=== PATIENT | female | born 1995 | race Caucasian/White ===

== ENCOUNTER → 2016-09-27 | Outpatient (REF) | payer OTHER ==
[~2016-09-27] MED LIST: ALBU17IN INH; CIPR500T89 PO; FLAG500T PO; NO HOME MEDS; PERCOCET PO; TYLE325T5 PO
== END ==
LOC: M SFHCWAGY 13:50
PROVIDERS: ATTEND Family Medicine
DX: Z11.3 Encounter for screening for infections with a predominantly sexual mode of transmission (principal); Z12.4 Encounter for screening for malignant neoplasm of cervix

== ENCOUNTER → 2016-12-06 | Outpatient (REF) | payer OTHER ==
[2016-12-06 18:52] LABS: BASO % 0.3 % (0.0-1.0); EOS # 0.1 K/mm3 (0.0-0.50); EOS % 0.9 % (0.0-3.0); LARGE UNSTAINED CELL # 0.1 K/mm3 (0.0-0.4); LARGE UNSTAINED CELL % 0.9 % (0.0-4.0); LYMPH # 2.2 K/mm3 (1.5-6.5); LYMPH % 18.7 % (24.0-44.0); MEAN CORPUSCULAR HEMOGLOBIN 29.4 pg (27.0-33.0); MEAN CORPUSCULAR HGB CONC 33.1 g/dl (32.0-36.5); MEAN CORPUSCULAR VOLUME 88.9 fl (80.0-96.0); MONO # 0.6 K/mm3 (0.0-0.8); MONO % 5.6 % (0.0-5.0); NEUTROPHILS # 8.3 K/mm3 (1.8-7.7); NEUTROPHILS % 73.5 % (36.0-66.0); PLATELET COUNT, AUTOMATED 347 k/mm3 (150-450); RED CELL DISTRIBUTION WIDTH 13.6 % (11.5-14.5); WHITE BLOOD COUNT 11.3 K/mm3 (4.0-10.0)
[2016-12-06 19:16] LABS: ALBUMIN 4.1 GM/DL (3.2-5.2); ALBUMIN/GLOBULIN RATIO 1.17 (1.00-1.93); ALKALINE PHOSPHATASE 79 U/L (45-117); ALT/SGPT 60 U/L (12-78); ANION GAP 6 MEQ/L (8-16); AST/SGOT 25 U/L (15-37); BILIRUBIN,TOTAL 0.4 MG/DL (0.2-1.0); BLOOD UREA NITROGEN 11 MG/DL (7-18); CALCIUM LEVEL 9.2 MG/DL (8.5-10.1); CARBON DIOXIDE LEVEL 29 MEQ/L (21-32); CHLORIDE LEVEL 106 MEQ/L (98-107); CREATININE FOR GFR 0.92 MG/DL (0.55-1.02); GLOMERULAR FILTRATION RATE > 60.0 (>60); GLUCOSE, FASTING 94 MG/DL (70-105); POTASSIUM SERUM 4.1 MEQ/L (3.5-5.1); SODIUM LEVEL 141 MEQ/L (136-145); TOTAL PROTEIN 7.6 GM/DL (6.4-8.2)
[2016-12-09 11:06] LABS: FOLATE 4.9 NG/ML; VITAMIN B12 LEVEL 429 PG/ML
== END ==
LOC: M SFHCADAM 14:03
PROVIDERS: ATTEND Physician Assistant Medical
DX: R20.0 Anesthesia of skin (principal)

== ENCOUNTER → 2017-02-19 | Outpatient (REF) | payer OTHER, MEDICAID ==
[~2017-02-19] MED LIST changes: +CIPR-249 PO; -CIPR500T89 PO
[2017-02-19 19:52] LABS: BASO % 0.3 % (0.0-1.0); EOS # 0.2 K/mm3 (0.0-0.50); EOS % 1.4 % (0.0-3.0); LARGE UNSTAINED CELL # 0.2 K/mm3 (0.0-0.4); LARGE UNSTAINED CELL % 1.6 % (0.0-4.0); LYMPH # 3.1 K/mm3 (1.5-6.5); LYMPH % 29.8 % (24.0-44.0); MEAN CORPUSCULAR HEMOGLOBIN 29.9 pg (27.0-33.0); MEAN CORPUSCULAR HGB CONC 33.3 g/dl (32.0-36.5); MEAN CORPUSCULAR VOLUME 89.8 fl (80.0-96.0); MONO # 0.5 K/mm3 (0.0-0.8); MONO % 4.6 % (0.0-5.0); NEUTROPHILS # 6.5 K/mm3 (1.8-7.7); NEUTROPHILS % 62.2 % (36.0-66.0); PLATELET COUNT, AUTOMATED 341 k/mm3 (150-450); RED CELL DISTRIBUTION WIDTH 13.3 % (11.5-14.5); WHITE BLOOD COUNT 10.5 K/mm3 (4.0-10.0)
[2017-02-20 09:10] LABS: CONTROL LINE MONO RF C INT CTR LINE PRESENT
== END ==
LOC: M LAB REF 17:11
PROVIDERS: ATTEND Physician Assistant Medical
DX: J02.9 Acute pharyngitis, unspecified (principal)

== ENCOUNTER → 2017-03-31 | Outpatient (REF) | payer OTHER | LOC: M SFHCWAGY 11:56 | PROVIDERS: ATTEND Nurse Practitioner Family | DX: N92.6 Irregular menstruation, unspecified (principal) ==

== ENCOUNTER → 2017-04-01 | Outpatient (REF) | payer OTHER ==
[2017-04-01 22:33] LABS: FOLLICLE STIMULATING HORMONE 7.2 mIU/mL; PROLACTIN 8.3 NG/ML
[2017-04-02 11:43] LABS: LUTEINIZING HORMONE 8.3 mIU/mL
== END ==
LOC: M LAB REF 21:05
PROVIDERS: ATTEND Nurse Practitioner Family
DX: N92.6 Irregular menstruation, unspecified (principal)

== ENCOUNTER → 2017-11-21 | Outpatient (REF) | payer MEDICAID, SELFPAY ==
[2017-11-21 22:01] LABS: CHLAMYDIA DNA AMPLIFICATION NEGATIVE (NEGATIVE); GC DNA AMPLIFICATION NEGATIVE (NEGATIVE)
== END ==
LOC: M SFHCWAGY 16:00
DX: Z12.4 Encounter for screening for malignant neoplasm of cervix (principal); Z11.3 Encounter for screening for infections with a predominantly sexual mode of transmission
CPT/HCPCS: 87591

== ENCOUNTER 2017-12-15 20:36 | Emergency (ER) | payer OTHER, SELFPAY, MEDICAID ==
[2017-12-15] MEDS: MORPHINE 4 MG/ML 1ML VIAL/SYRINGE (J2270) IV ×2 (21:22→22:33)
[2017-12-15] MEDS: ONDANSETRON 4MG/2ML VIAL (J2405) IV (21:23)
[2017-12-15] MEDS: DERMABOND TOPICAL SKIN ADHESIVE TOP (23:45)
[2017-12-16] MEDS: OXYCODONE/APAP 5MG/325MG(BULK FOR ED) 1 TABLET PO
== END 2017-12-16 00:11 | disposition home or self-care (01) ==
LOC: M ED 12-16 00:11
DX: S01.81XA Laceration without foreign body of other part of head, initial encounter (principal); S00.83XA Contusion of other part of head, initial encounter; V49.59XA Passenger injured in collision with other motor vehicles in traffic accident, initial encounter; Y92.410 Unspecified street and highway as the place of occurrence of the external cause
CPT/HCPCS: J2270

== ENCOUNTER 2018-03-02 20:05 | Emergency (ER) | payer MEDICAID, OTHER ==
[2018-03-02 22:04] LABS: CONTROL LINE UCG INT CTR LINE PRESENT; URINE PREG TEST NEGATIVE (NEGATIVE)
[2018-03-02 22:10] LABS: KETONE, URINE AUTO RFX NEGATIVE (NEGATIVE); MUCUS, URINE RFX SMALL (NEGATIVE); NITRITE, URINE AUTO RFX NEGATIVE (NEGATIVE); RBC, URINE AUTO RFX TNTC /HPF (0-3); SPECIFIC GRAVITY UR AUTO RFX 1.026 (1.002-1.035); SQUAM EPITHELIAL CELL UR AURFX 1 /HPF (0-6)
[2018-03-02 22:12] LABS: LEUKOCYTE ESTERASE UR AUTO RFX 1+ (NEGATIVE); WBC, URINE AUTO RFX 52 /HPF (0-3)
[2018-03-03] MEDS: CIPROFLOXACIN 500 MG TAB PO (00:21)
[2018-03-03] MEDS: KETOROLAC 60 MG/2 ML VIAL (J1885) IM (00:21)
[2018-03-03] MEDS: PHENAZOPYRIDINE 100 MG TAB PO (00:21)
[2018-03-03] MEDS: ONDANSETRON 4 MG ORAL DISINTEGRATING TAB (Q0162 PER 1MG) PO (00:22)
== END 2018-03-03 00:30 | disposition home or self-care (01) ==
LOC: M ED 20:05
DX: N39.0 Urinary tract infection, site not specified (principal); R11.0 Nausea; N80.9 Endometriosis, unspecified; Z88.8 Allergy status to other drugs, medicaments and biological substances; Z91.011 Allergy to milk products; Z79.899 Other long term (current) drug therapy; Z79.3 Long term (current) use of hormonal contraceptives
CPT/HCPCS: Q0162

== ENCOUNTER 2018-04-22 16:08 | Emergency (ER) | payer MEDICAID ==
[2018-04-22 16:59] LABS: KETONE, URINE AUTO RFX NEGATIVE (NEGATIVE); MUCUS, URINE RFX SMALL (NEGATIVE); NITRITE, URINE AUTO RFX NEGATIVE (NEGATIVE); RBC, URINE AUTO RFX 3 /HPF (0-3); SPECIFIC GRAVITY UR AUTO RFX 1.019 (1.002-1.035); SQUAM EPITHELIAL CELL UR AURFX 3 /HPF (0-6)
[2018-04-22 17:01] LABS: LEUKOCYTE ESTERASE UR AUTO RFX 2+ (NEGATIVE); WBC, URINE AUTO RFX 14 /HPF (0-3)
[2018-04-22] MEDS: NS 1,000 ML IV (20:17)
[2018-04-22 20:35] LABS: BASO % 0.3 % (0.0-1.0); EOS # 0.1 10^3/uL (0.0-0.50); HEMATOCRIT 46.2 % (36.0-47.0); HEMOGLOBIN 15.2 g/dl (12.0-15.5); IMMATURE GRANULOCYTE % 0.3 % (0-3.0); LYMPH # 3.9 10^3/uL (1.5-6.5); LYMPH % 27.6 % (24.0-44.0); MEAN CORPUSCULAR HEMOGLOBIN 29.9 pg (27.0-33.0); MEAN CORPUSCULAR HGB CONC 32.9 g/dl (32.0-36.5); MEAN CORPUSCULAR VOLUME 90.8 fl (80.0-96.0); MONO # 0.8 10^3/uL (0.0-0.8); MONO % 5.7 % (0.0-5.0); NEUTROPHILS # 9.2 10^3/uL (1.8-7.7); NEUTROPHILS % 65.1 % (36.0-66.0); PLATELET COUNT, AUTOMATED 404 10^3/uL (150-450); RED BLOOD COUNT 5.09 10^6/uL (4.00-5.40); RED CELL DISTRIBUTION WIDTH 13.3 % (11.5-14.5); WHITE BLOOD COUNT 14.1 10^3/uL (4.0-10.0)
[2018-04-22 20:47] LABS: ALBUMIN 4.3 GM/DL (3.2-5.2); ALBUMIN/GLOBULIN RATIO 1.05 (1.00-1.93); ALKALINE PHOSPHATASE 78 U/L (45-117); ALT/SGPT 52 U/L (12-78); AMYLASE 61 U/L (25-115); ANION GAP 9 MEQ/L (8-16); AST/SGOT 21 U/L (7-37); BILIRUBIN,DIRECT < 0.1 MG/DL (0.0-0.2); BILIRUBIN,TOTAL 0.3 MG/DL (0.2-1.0); BLOOD UREA NITROGEN 11 MG/DL (7-18); CALCIUM LEVEL 9.2 MG/DL (8.5-10.1); CARBON DIOXIDE LEVEL 24 MEQ/L (21-32); CHLORIDE LEVEL 108 MEQ/L (98-107); CREATININE FOR GFR 0.86 MG/DL (0.55-1.30); GLOMERULAR FILTRATION RATE > 60.0 (>60); GLUCOSE, FASTING 82 MG/DL (70-100); LIPASE 146 U/L (73-393); POTASSIUM SERUM 3.8 MEQ/L (3.5-5.1); SODIUM LEVEL 141 MEQ/L (136-145); TOTAL PROTEIN 8.4 GM/DL (6.4-8.2)
[2018-04-22] MEDS ORDERED: ISOVUE-370 76% 100ML VIAL (Q9967) As Ordered (21:20)
[2018-04-22] MEDS: KETOROLAC 30 MG/ML VIAL (J1885) IV (22:08)
[2018-04-22] MEDS: CIPROFLOXACIN 500 MG TAB PO (22:44)
[2018-04-22] MEDS: metroNIDAZOLE (FLAGYL) 500 MG TAB PO (22:44)
== END 2018-04-22 23:00 | disposition home or self-care (01) ==
LOC: M ED 16:08
DX: N39.0 Urinary tract infection, site not specified (principal); R93.5 Abnormal findings on diagnostic imaging of other abdominal regions, including retroperitoneum; J45.909 Unspecified asthma, uncomplicated; N80.9 Endometriosis, unspecified; F33.9 Major depressive disorder, recurrent, unspecified; F41.9 Anxiety disorder, unspecified; Z91.011 Allergy to milk products; Z88.8 Allergy status to other drugs, medicaments and biological substances; Z79.899 Other long term (current) drug therapy
CPT/HCPCS: Q9967

== ENCOUNTER 2019-01-08 15:05 | Emergency (ER) | payer OTHER ==
[~2019-01-08] VITALS: Ht 167.6 cm; Wt 127.3 kg
[~2019-01-08 15:05] MED LIST changes: +BENT10CA PO; +DOXY100C37 PO; +PYRI1TAB5 PO; +TRINTAB; +VENL75TA2 PO; +ZOFR4TAB14 PO
[2019-01-08] MEDS ORDERED: MIRE1IUD IU (15:12)
[2019-01-08] MEDS ORDERED: KETOROLAC 30 MG/ML VIAL (J1885) IV ONE (16:15)
[2019-01-08] MEDS ORDERED: diphenhydrAMINE INJ 50MG/ML VIAL (J1200) IV ONE (16:15)
[2019-01-08] MEDS ORDERED: ACETAMINOPHEN 500 MG TAB PO ONE (16:15)
[2019-01-08 16:26] LABS: HEMATOCRIT 42.1 % (36.0-47.0); HEMOGLOBIN 13.9 g/dl (12.0-15.5); MEAN CORPUSCULAR HEMOGLOBIN 29.7 pg (27.0-33.0); PLATELET COUNT, AUTOMATED 387 10^3/uL (150-450); RED BLOOD COUNT 4.68 10^6/uL (4.00-5.40); WHITE BLOOD COUNT 13.2 10^3/uL (4.0-10.0)
[2019-01-08] MEDS ORDERED: NS 1,000 ML IV ONE (16:45)
[2019-01-08] MEDS ORDERED: ISOVUE-370 76% 100ML VIAL (Q9967) As Ordered ONE (16:57)
[2019-01-08 17:05] LABS: CK-MB VALUE MASS < 1.0 NG/ML (<3.6); CPK CREATINE PHOSPHOKINASE 89 U/L (26-192); MAGNESIUM LEVEL 2.1 MG/DL (1.8-2.4); MB/CK RELATIVE INDEX 1.12 (< OR =4); TROPONIN I < 0.02 NG/ML (< 0.10)
--- NOTE | 2019-01-08 17:11 | REP ---
Clinical: Chest pain . Comparison: 09/26/2010 . Technique: PA and lateral. Findings: The mediastinum and cardiac silhouette are normal. The lung hurtado are clear and without acute consolidation, effusion, or pneumothorax. The skeletal structures are intact and normal. Impression: 1. No acute cardiopulmonary process. Electronically Signed by Gorge Stanton MD 01/08/2019 05:03 P
--- NOTE | 2019-01-08 17:41 | REP ---
Clinical: Acute chest pain. Technique: Axial contrast enhanced images from the thoracic inlet to the upper abdomen using 100 ml Isovue 370 intravenous contrast material with coronal and sagittal re-formations. Findings: Satisfactory enhancement of the pulmonary vasculature is achieved and no filling defects are identified to suggest pulmonary embolus. Thoracic aorta is normal caliber without aneurysm or dissection. Heart and pericardium are normal. Bilateral lung hurtado are well aerated and clear without acute pulmonary parenchymal consolidation or atelectasis. No nodule or mass lesion. No pleural effusion/reaction. No pneumothorax. No adenopathy. Impression: No evidence for pulmonary embolus. No acute pleuroparenchymal or mediastinal process. Electronically Signed by Gorge Stanton MD 01/08/2019 05:32 P
[2019-01-08 17:51] VITALS: BP 141/70
--- NOTE | 2019-01-08 21:00 | ECGEPIP ---
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
== END 2019-01-08 18:02 | disposition home or self-care (01) ==
LOC: M ED 15:05
DX: R00.0 Tachycardia, unspecified (principal); F41.9 Anxiety disorder, unspecified; Z79.51 Long term (current) use of inhaled steroids; Z88.8 Allergy status to other drugs, medicaments and biological substances; Z90.49 Acquired absence of other specified parts of digestive tract; Z91.011 Allergy to milk products; Z97.5 Presence of (intrauterine) contraceptive device
CPT/HCPCS: 71046; 71275; 80047; 82550; 82553; 83735; 84443; 84702; 85027; 93005; 96361; 96374; 96375; 99284; J1200; J1885; Q9967

== ENCOUNTER 2019-04-25 00:16 | Emergency (ER) | payer OTHER ==
[~2019-04-25] VITALS: Ht 167.6 cm; Wt 136.1 kg
[~2019-04-25 00:16] MED LIST changes: +MIRE1IUD IU
[2019-04-25] MEDS ORDERED: VENL75CA47 (00:24)
[2019-04-25] MEDS ORDERED: KETOROLAC 30 MG/ML VIAL (J1885) IV ONE (02:00)
[2019-04-25] MEDS ORDERED: ONDANSETRON 4MG/2ML VIAL (J2405) IV ONE (02:00)
[2019-04-25 02:08] LABS: HEMATOCRIT 42.5 % (36.0-47.0); HEMOGLOBIN 14.2 g/dl (12.0-15.5); MEAN CORPUSCULAR HEMOGLOBIN 30.3 pg (27.0-33.0); MEAN CORPUSCULAR HGB CONC 33.4 g/dl (32.0-36.5); MEAN CORPUSCULAR VOLUME 90.8 fl (80.0-96.0); PLATELET COUNT, AUTOMATED 374 10^3/uL (150-450); RED BLOOD COUNT 4.68 10^6/uL (4.00-5.40); WHITE BLOOD COUNT 15.6 10^3/uL (4.0-10.0)
[2019-04-25] MEDS ORDERED: ONDANSETRON 4 MG ORAL DISINTEGRATING TAB (Q0162 PER 1MG) PO ONE (02:15)
[2019-04-25] MEDS ORDERED: KETOROLAC 60 MG/2 ML VIAL (J1885) IM ONE (02:15)
[2019-04-25 02:28] LABS: ATYPICAL LYMPH 1 % (0-5); LYMPHOCYTES 30 % (16-44); MONOCYTES 9 % (0-5); NEUTROPHILS 60 % (28-66); PLATELET ESTIMATE NORMAL (NORMAL)
[2019-04-25 03:47] LABS: BLOOD UREA NITROGEN 13 MG/DL (7-18); CALCIUM LEVEL 9.2 MG/DL (8.5-10.1); CARBON DIOXIDE LEVEL 27 MEQ/L (21-32); CHLORIDE LEVEL 107 MEQ/L (98-107); GLOMERULAR FILTRATION RATE > 60.0 (>60); GLUCOSE, FASTING 87 MG/DL (70-100); POTASSIUM SERUM 3.8 MEQ/L (3.5-5.1); SODIUM LEVEL 141 MEQ/L (136-145)
--- NOTE | 2019-04-25 04:19 | REPVR ---
EXAM: US Duplex Artery or Vein of the Abdominal and/or Reproductive Organs, Limited Ovaries EXAM DATE/TIME: 04/25/2019 2:53 AM CLINICAL HISTORY: 23 years old, female; Pelvic pain; Additional info: Pelvic pain, llq severe pain TECHNIQUE: Imaging protocol: Real-time duplex ultrasound scan of the arterial or venous flow with long scale, color Doppler flow and spectral waveform analysis with image documentation. Limited duplex exam focused on the ovaries. Duplex images required to evaluate for torsion and other vascular conditions. COMPARISON: US PELVIC NON-OB COMPLETE 11/23/2015 12:18 AM FINDINGS: Right adnexa: Blood flow present within the right ovary. Normal Doppler waveforms and color flow. RI 0.57. No evidence of ovarian torsion. Left adnexa: Blood flow present within the left ovary. Normal Doppler waveforms and color flow. RI 0.52. No evidence of ovarian torsion. IMPRESSION: 1. Unremarkable duplex of the ovaries. No evidence of ovarian torsion. 2. See below for complete pelvic ultrasound. EXAM: US Pelvis Complete, Transabdominal and US Pelvis, Transvaginal EXAM DATE/TIME: 04/25/2019 2:53 AM CLINICAL HISTORY: 23 years old, female; Pelvic pain; Additional info: Pelvic pain, llq severe pain TECHNIQUE: Imaging protocol: Real-time transabdominal and transvaginal pelvic ultrasound (complete) with image documentation. Transvaginal imaging was used for better evaluation of the endometrium and adnexa. COMPARISON: US PELVIC NON-OB COMPLETE 11/23/2015 12:18 AM FINDINGS: Uterus/cervix: The uterus is normal in size, shape and echotexture measuring 8.6 x 4.4 x 5.0 cm. There is an IUD within the endometrial canal. The endometrium measures 7 mm. No myometrial mass. Right adnexa: The right ovary measures 3.8 x 4.6 x 3.3 cm and contains few small follicles as well as a 2.6 x 2.9 x 2.7 cm cyst. Blood flow present within the right ovary. No adnexal masses. Left adnexa: The left ovary measures 4.6 x 2.4 x 1.6 cm and is only seen transabdominally. The left ovary is unremarkable in appearance. Blood flow present within the left ovary. No adnexal masses. Free fluid: No evidence of free fluid. Bladder: Partially distended urinary bladder is unremarkable. IMPRESSION: 1. There is a 2.9 cm right ovarian cyst. 2. Unremarkable transabdominal appearance of the left ovary. 3. There is blood flow present within each ovary. 4. No adnexal masses or free fluid. Electronically signed by: Gorge Hernandez On 04/25/2019 04:18:44 AM
[2019-04-25] MEDS ORDERED: NORCO 5/325MG TABLET (BULK FOR ED) PO ONE (05:15)
[2019-04-25 05:16] VITALS: BP 132/77
== END 2019-04-25 05:17 | disposition home or self-care (01) ==
LOC: M ED 00:16
DX: N83.201 Unspecified ovarian cyst, right side (principal); J45.909 Unspecified asthma, uncomplicated; Z79.3 Long term (current) use of hormonal contraceptives; Z79.899 Other long term (current) drug therapy; Z88.8 Allergy status to other drugs, medicaments and biological substances; Z91.011 Allergy to milk products; Z97.5 Presence of (intrauterine) contraceptive device
CPT/HCPCS: 76830; 76856; 80048; 81001; 84702; 85025; 87086; 93976; 96374; 99283; J1885; Q0162

== ENCOUNTER → 2019-05-07 | Outpatient (REF) | payer OTHER ==
[~2019-05-07] MED LIST changes: +VENL75CA47
[2019-05-14 00:08] LABS: HPV HYBRID CAPTURE II Positive (Negative)
== END ==
LOC: M SFHCWAGY 14:38
PROVIDERS: ATTEND Family Medicine
DX: Z12.4 Encounter for screening for malignant neoplasm of cervix (principal); R87.610 Atypical squamous cells of undetermined significance on cytologic smear of cervix (ASC-US)

== ENCOUNTER 2019-06-13 14:21 | Emergency (ER) | payer OTHER ==
[~2019-06-13] VITALS: Ht 167.6 cm; Wt 135.6 kg
[2019-06-13 15:22] LABS: BASO % 0.3 % (0.0-1.0); EOS # 0.1 10^3/uL (0.0-0.5); EOS % 0.7 % (0.0-3.0); HEMATOCRIT 44.4 % (36.0-47.0); HEMOGLOBIN 14.6 g/dl (12.0-15.5); LYMPH # 2.7 10^3/uL (1.5-5.0); LYMPH % 18.7 % (24.0-44.0); MEAN CORPUSCULAR HEMOGLOBIN 30.1 pg (27.0-33.0); MEAN CORPUSCULAR HGB CONC 32.9 g/dl (32.0-36.5); MEAN CORPUSCULAR VOLUME 91.5 fl (80.0-96.0); MONO # 0.8 10^3/uL (0.0-0.8); MONO % 5.2 % (0.0-5.0); NEUTROPHILS # 10.8 10^3/uL (1.5-8.5); NEUTROPHILS % 74.5 % (36.0-66.0); PLATELET COUNT, AUTOMATED 389 10^3/uL (150-450); RED BLOOD COUNT 4.85 10^6/uL (4.00-5.40); WHITE BLOOD COUNT 14.5 10^3/uL (4.0-10.0)
[2019-06-13 15:49] LABS: HCG, SERUM QUALITATIVE NEGATIVE (NEGATIVE)
[2019-06-13 15:56] LABS: BLOOD UREA NITROGEN 12 MG/DL (7-18); CALCIUM LEVEL 9.4 MG/DL (8.5-10.1); CARBON DIOXIDE LEVEL 30 MEQ/L (21-32); CHLORIDE LEVEL 107 MEQ/L (98-107); CREATININE FOR GFR 0.96 MG/DL (0.55-1.30); GLOMERULAR FILTRATION RATE > 60.0 (>60); GLUCOSE, FASTING 82 MG/DL (70-100); MAGNESIUM LEVEL 2.2 MG/DL (1.8-2.4); SODIUM LEVEL 142 MEQ/L (136-145)
[2019-06-13] MEDS: METOCLOPRAMIDE INJ 10MG/2ML VIAL (J2765) IV ONE ×2 (16:00→17:21)
[2019-06-13 16:10] LABS: AMPHETAMINES LEVEL URINE NEGATIVE (NEGATIVE); BARBITURATES URINE NEGATIVE (NEGATIVE); BENZODIAZEPINES URINE NEGATIVE (NEGATIVE); CANNABINOIDS URINE POSITIVE (NEGATIVE); COCAINE METABOLITE URINE NEGATIVE (NEGATIVE); METHADONE URINE NEGATIVE (NEGATIVE); OPIATES URINE NEGATIVE (NEGATIVE); PHENCYCLIDINE URINE NEGATIVE (NEGATIVE)
[2019-06-13] MEDS ORDERED: NS 1,000 ML IV ONE (16:30)
[2019-06-13] MEDS ORDERED: ACETAMINOPHEN 500 MG TAB PO ONE (16:30)
[2019-06-13 18:30] VITALS: BP 121/63
--- NOTE | 2019-06-14 07:23 | REP ---
CT BRAIN WITHOUT IV CONTRAST: CT brain was performed without IV contrast. The ventricles are normal in size and position with no midline shift or mass effect. Teresa-white differentiation is well maintained. There is no acute intracranial hemorrhage of extra-axial fluid collection. Bone window examination is unremarkable. IMPRESSION: Negative noncontrast CT brain. Electronically Signed by Milan Teresa MD 06/14/2019 03:34 P
--- NOTE | 2019-06-14 20:05 | ECGEPIP ---
[facility] - ED Test Date: 2019-06-13 Pat Name: EMMANUELLE ODELL Department: Room: - Gender: Female [employer] In[employer]icer: TC : 1995 Requested By: Maribeth Bahena Order Number: [id number] Reading MD: Kim Glass Measurements Intervals [place] Rate: 87 P: 46 NH: 147 QRS: 33 QRSD: 89 T: 33 QT: 354 QTc: 428 Interpretive Statements SINUS RHYTHM WITH SINUS ARRHYTHMIA NONSPECIFIC ST T WAVE CHANGES CW 01/08/19 RATE DECREASED Electronically Signed on 06-14-2019 20:05:18 EDT by Kim Glass
== END 2019-06-13 18:43 | disposition home or self-care (01) ==
LOC: M ED 14:21
DX: R55 Syncope and collapse (principal); I49.9 Cardiac arrhythmia, unspecified; J45.909 Unspecified asthma, uncomplicated; Z79.3 Long term (current) use of hormonal contraceptives; Z88.8 Allergy status to other drugs, medicaments and biological substances; Z91.011 Allergy to milk products
CPT/HCPCS: 70450; 80048; 80307; 83735; 84443; 84703; 85025; 93005; 93041; 94760; 96361; 96374; 99285; J2765

== ENCOUNTER → 2019-07-16 | Outpatient (REF) | payer OTHER | LOC: M LAB REF 09:32 | PROVIDERS: ATTEND Physician Assistant | DX: J02.9 Acute pharyngitis, unspecified (principal) ==

== ENCOUNTER 2019-09-29 12:00 | Emergency (ER) | payer OTHER ==
[~2019-09-29] VITALS: Ht 167.6 cm; Wt 141.0 kg
[2019-09-29] MEDS ORDERED: AMIT10TA PO (12:24)
[2019-09-29] MEDS ORDERED: SUMA100T2 PO (12:24)
[2019-09-29] MEDS ORDERED: IBUP-1022 PO (12:24)
[2019-09-29] MEDS ORDERED: PROMETHAZINE INJ 25 MG/ML VIAL (J2550) IV ONE (14:15)
[2019-09-29 15:29] LABS: HEMATOCRIT 40.2 % (36.0-47.0); HEMOGLOBIN 13.3 g/dl (12.0-15.5); MEAN CORPUSCULAR HEMOGLOBIN 30.1 pg (27.0-33.0); MEAN CORPUSCULAR HGB CONC 33.1 g/dl (32.0-36.5); PLATELET COUNT, AUTOMATED 318 10^3/uL (150-450); RED BLOOD COUNT 4.42 10^6/uL (4.00-5.40)
[2019-09-29 15:39] LABS: INR 1.1; PARTIAL THROMBOPLASTIN TIME 30.4 SECONDS (25.0-38.4)
[2019-09-29] MEDS ORDERED: ISOVUE-370 76% 100ML VIAL (Q9967) As Ordered ONE (15:41)
--- NOTE | 2019-09-29 16:14 | REP ---
Clinical: Headache. Mass. Technique: Pre and postcontrast images from the skull base to the vertex with coronal re-formations using 75 ml Isovue 370 intravenous contrast material. Findings: There is a 2.4 cm heterogeneous enhancing lesion along the left parasellar region without surrounding vasogenic edema and without obvious significant mass effect to the adjacent basilar cistern or the left temporal lobe. Differential diagnosis is extensive and includes but is not limited to vascular lesion, meningioma, craniopharyngioma and further lesions. The remainder of the examination is essentially normal. Impression: A 2.4 cm heterogeneous enhancing left parasellar mass. The contrast enhanced MRI is recommended for further investigation. Electronically Signed by Gorge Stanton MD 09/29/2019 04:06 P
[2019-09-29] MEDS ORDERED: KETOROLAC 30 MG/ML VIAL (J1885) IV ONE (17:00)
[2019-09-29] MEDS ORDERED: MAG SULF 1GM/100ML (MAG RUN) 1 GM in IV 1 EA IV ONE (17:00)
[2019-09-29] MEDS ORDERED: METOCLOPRAMIDE INJ 10MG/2ML VIAL (J2765) IV ONE (17:00)
[2019-09-29 18:48] LABS: INFLUENZA A AMPLIFICATION NEGATIVE (NEGATIVE); INFLUENZA B AMPLIFICATION NEGATIVE (NEGATIVE)
[2019-09-29] MEDS ORDERED: VALPROATE SOD INJ 1,000 MG in D5W 50 ML IV ONE (19:45)
[2019-09-29] MEDS ORDERED: REGL5TAB2 PO (20:35)
[2019-09-29 20:45] VITALS: BP 117/68
--- NOTE | 2019-09-30 19:31 | ED PDOC ---
Post-Departure Follow-Up dr freed and judy faxed formal report of ct head for fu Kim Stephens MD Sep 30, 2019 19:31
== END 2019-09-29 20:56 | disposition home or self-care (01) ==
LOC: M ED 12:00
DX: G43.909 Migraine, unspecified, not intractable, without status migrainosus (principal); D49.6 Neoplasm of unspecified behavior of brain; N80.9 Endometriosis, unspecified; Z97.5 Presence of (intrauterine) contraceptive device
CPT/HCPCS: 36415; 70470; 80047; 84702; 85027; 85610; 85730; 87502; 96365; 96375; 99284; J1885; J2765; J3475; Q9967

== ENCOUNTER → 2020-01-05 | Outpatient (REF) | payer OTHER ==
[~2020-01-05] MED LIST changes: +AMIT10TA PO; +IBUP-1022 PO; +REGL5TAB2 PO; +SUMA100T2 PO
[2020-01-05 17:42] LABS: APPEARANCE, URINE HAZY (CLEAR); BACTERIA, URINE AUTO NEGATIVE (NEGATIVE); BILIRUBIN, URINE AUTO NEGATIVE (NEGATIVE); BLOOD, URINE BLOOD 3+ (NEGATIVE); COLOR, URINE YELLOW (YELLOW); GLUCOSE, URINE (UA) AUTO NEGATIVE (NEGATIVE); KETONE, URINE AUTO NEGATIVE (NEGATIVE); LEUKOCYTE ESTERASE, URINE AUTO 3+ (NEGATIVE); MUCUS, URINE SMALL (NEGATIVE); NITRITE, URINE AUTO NEGATIVE (NEGATIVE); PROTEIN, URINE AUTO NEGATIVE (NEGATIVE); RBC, URINE AUTO 42 /HPF (0-3); SPECIFIC GRAVITY URINE AUTO 1.009 (1.002-1.035); SQUAMOUS EPITHELIAL CELL UR AU 2 /HPF (0-6); UROBILINOGEN, URINE AUTO 0.2 mg/dL (0.0-2.0); WBC, URINE AUTO 116 /HPF (0-3)
[2020-01-05 20:45] LABS: CHLAMYDIA DNA AMPLIFICATION NEGATIVE (NEGATIVE); GC DNA AMPLIFICATION NEGATIVE (NEGATIVE)
== END ==
LOC: M SFHCADAM 12:08
PROVIDERS: ATTEND Physician Assistant
DX: R30.0 Dysuria (principal); B37.3 Candidiasis of vulva and vagina

== ENCOUNTER → 2020-02-17 | Outpatient (REF) | payer OTHER ==
[2020-02-18 18:41] LABS: CHLAMYDIA DNA AMPLIFICATION NEGATIVE (NEGATIVE); GC DNA AMPLIFICATION NEGATIVE (NEGATIVE)
== END ==
LOC: M SFHCADAM 16:23
PROVIDERS: ATTEND Physician Assistant
DX: N89.8 Other specified noninflammatory disorders of vagina (principal)

== ENCOUNTER 2020-05-27 19:40 | Emergency (ER) | payer MEDICAID, OTHER ==
[~2020-05-27] VITALS: Ht 167.6 cm; Wt 151.3 kg
[2020-05-27 19:41] VITALS: BP 131/80
[2020-05-27] MEDS ORDERED: DULO1CAP4 PO (19:51)
[2020-05-27] MEDS ORDERED: FOLI1TAB11 PO (19:51)
[2020-05-27] MEDS ORDERED: GABA-843 PO (19:51)
[2020-05-27] MEDS ORDERED: DIVA250T67 PO (19:51)
[2020-05-27] MEDS ORDERED: TRAM50TA2 PO (20:15)
== END 2020-05-27 20:30 | disposition home or self-care (01) ==
LOC: M ED 19:40
DX: K08.89 Other specified disorders of teeth and supporting structures (principal); F17.200 Nicotine dependence, unspecified, uncomplicated; I11.9 Hypertensive heart disease without heart failure

== ENCOUNTER → 2020-06-02 | Outpatient (REF) | payer OTHER ==
[~2020-06-02] MED LIST changes: +DIVA250T67 PO; +DULO1CAP4 PO; +FOLI1TAB11 PO; +GABA-843 PO; +TRAM50TA2 PO
[2020-06-02 14:30] LABS: HEPATITIS A ANTIBODY IGM NEGATIVE (NEGATIVE); HEPATITIS B CORE ANTIBODY IGM NEGATIVE (NEGATIVE); HEPATITIS B SURFACE ANTIGEN NEGATIVE (NEGATIVE); HEPATITIS C VIRUS ABY INDEX 0.1 INDEX (<0.8); HIV 1&2 SCREEN CENTAUR NEGATIVE (NEGATIVE)
== END ==
LOC: M SFHCADAM 08:47
PROVIDERS: ATTEND Physician Assistant
DX: Z11.3 Encounter for screening for infections with a predominantly sexual mode of transmission (principal)

== ENCOUNTER → 2020-12-11 | Outpatient (REF) | payer OTHER ==
[~2020-12-11] MED LIST changes: -AMIT10TA PO; +AMIT10TA7 PO; +GABA-282 PO; -GABA-843 PO
[2020-12-11 13:13] LABS: HEMATOCRIT 46.4 % (36.0-47.0); HEMOGLOBIN 14.7 g/dl (12.0-15.5); MEAN CORPUSCULAR HEMOGLOBIN 29.6 pg (27.0-33.0); MEAN CORPUSCULAR HGB CONC 31.7 g/dl (32.0-36.5); MEAN CORPUSCULAR VOLUME 93.5 fl (80.0-96.0); PLATELET COUNT, AUTOMATED 356 10^3/uL (150-450); RED BLOOD COUNT 4.96 10^6/uL (4.00-5.40); WHITE BLOOD COUNT 12.2 10^3/uL (4.0-10.0)
[2020-12-11 13:32] LABS: HEMOGLOBIN A1c 5.2 %
[2020-12-11 13:55] LABS: ALBUMIN 3.7 GM/DL (3.2-5.2); ALT/SGPT 66 U/L (12-78); BILIRUBIN,TOTAL 0.4 MG/DL (0.2-1.0); BLOOD UREA NITROGEN 9 MG/DL (7-18); CALCIUM LEVEL 9.3 MG/DL (8.5-10.1); CARBON DIOXIDE LEVEL 30 MEQ/L (21-32); CHLORIDE LEVEL 109 MEQ/L (98-107); CHOLESTEROL LEVEL 140 MG/DL (<200); CHOLESTEROL RISK RATIO 4.516 (<5); FREE T4 0.91 NG/DL (0.76-1.46); GLOMERULAR FILTRATION RATE > 60.0 (>60); GLUCOSE, FASTING 97 MG/DL (70-100); HDL CHOLESTEROL 31 MG/DL (>40); LDL CHOLESTEROL 89 MG/DL (<100); NON-HDL-C 109 MG/DL; POTASSIUM SERUM 4.7 MEQ/L (3.5-5.1); SODIUM LEVEL 143 MEQ/L (136-145); TOTAL PROTEIN 7.3 GM/DL (6.4-8.2); TRIGLYCERIDES LEVEL 98 MG/DL (<150)
[2020-12-11 13:57] LABS: TOTAL 25(OH) VITAMIN D 10.3 NG/ML (30.0-100.0)
== END ==
LOC: M SFHCADAM 11:29
PROVIDERS: ATTEND Physician Assistant
DX: F32.9 Major depressive disorder, single episode, unspecified (principal); E28.2 Polycystic ovarian syndrome; Z13.1 Encounter for screening for diabetes mellitus; Z13.220 Encounter for screening for lipoid disorders

== ENCOUNTER → 2021-03-08 | Outpatient (REF) | payer OTHER ==
[~2021-03-08] MED LIST changes: -DOXY100C37 PO; +DOXY1CAP62 PO
[2021-03-08 17:21] LABS: BASO % 0.4 % (0.0-1.0); EOS # 0.2 10^3/uL (0.0-0.5); EOS % 1.7 % (0.0-3.0); HEMATOCRIT 44.6 % (36.0-47.0); HEMOGLOBIN 14.6 g/dl (12.0-15.5); LYMPH # 2.8 10^3/uL (1.5-5.0); LYMPH % 27.7 % (24.0-44.0); MEAN CORPUSCULAR HEMOGLOBIN 30.2 pg (27.0-33.0); MEAN CORPUSCULAR HGB CONC 32.7 g/dl (32.0-36.5); MEAN CORPUSCULAR VOLUME 92.1 fl (80.0-96.0); MONO # 0.7 10^3/uL (0.0-0.8); MONO % 6.6 % (2.0-8.0); NEUTROPHILS # 6.5 10^3/uL (1.5-8.5); NEUTROPHILS % 63.3 % (36.0-66.0); PLATELET COUNT, AUTOMATED 335 10^3/uL (150-450); RED BLOOD COUNT 4.84 10^6/uL (4.00-5.40); WHITE BLOOD COUNT 10.2 10^3/uL (4.0-10.0)
[2021-03-08 17:39] LABS: ALT/SGPT 67 U/L (12-78); AMYLASE 42 U/L (25-115); BILIRUBIN,TOTAL 0.4 MG/DL (0.2-1.0); BLOOD UREA NITROGEN 8 MG/DL (7-18); CALCIUM LEVEL 8.9 MG/DL (8.5-10.1); CARBON DIOXIDE LEVEL 26 MEQ/L (21-32); CHLORIDE LEVEL 110 MEQ/L (98-107); CREATININE FOR GFR 0.88 MG/DL (0.55-1.30); GLOMERULAR FILTRATION RATE > 60.0 (>60); GLUCOSE, FASTING 85 MG/DL (70-100); LIPASE 51 U/L (73-393); SODIUM LEVEL 141 MEQ/L (136-145); TOTAL PROTEIN 7.1 GM/DL (6.4-8.2)
== END ==
LOC: M SFHCADAM 12:41
PROVIDERS: ATTEND Physician Assistant
DX: R19.7 Diarrhea, unspecified (principal); R10.13 Epigastric pain

== ENCOUNTER 2021-03-21 10:35 | Emergency (ER) | payer OTHER ==
[~2021-03-21] VITALS: Ht 167.6 cm; Wt 145.1 kg
[~2021-03-21 10:35] MED LIST changes: +DOXY-443 PO; -DOXY1CAP62 PO
[2021-03-21] MEDS ORDERED: TRAZ-252 PO (10:57)
[2021-03-21 12:11] LABS: BASO # 0.1 10^3/uL (0.0-0.2); BASO % 0.4 % (0.0-1.0); EOS # 0.1 10^3/uL (0.0-0.5); EOS % 1.1 % (0.0-3.0); HEMATOCRIT 46.7 % (36.0-47.0); HEMOGLOBIN 15.1 g/dl (12.0-15.5); LYMPH # 2.3 10^3/uL (1.5-5.0); LYMPH % 19.1 % (24.0-44.0); MEAN CORPUSCULAR HGB CONC 32.3 g/dl (32.0-36.5); MEAN CORPUSCULAR VOLUME 92.8 fl (80.0-96.0); MONO # 0.7 10^3/uL (0.0-0.8); NEUTROPHILS # 8.9 10^3/uL (1.5-8.5); NEUTROPHILS % 73.1 % (36.0-66.0); PLATELET COUNT, AUTOMATED 349 10^3/uL (150-450); RED BLOOD COUNT 5.03 10^6/uL (4.00-5.40); WHITE BLOOD COUNT 12.3 10^3/uL (4.0-10.0)
[2021-03-21] MEDS ORDERED: ACETAMINOPHEN *IV* 1,000 MG in IV 1 EA IV ONE (12:30)
[2021-03-21] MEDS ORDERED: METOCLOPRAMIDE INJ 10MG/2ML VIAL (J2765 PER 1) IV ONE (12:30)
[2021-03-21] MEDS ORDERED: NS 1,000 ML IV ONE (12:30)
[2021-03-21 12:44] LABS: ALBUMIN 4.1 GM/DL (3.2-5.2); ALT/SGPT 68 U/L (12-78); BILIRUBIN,DIRECT 0.1 MG/DL (0.0-0.2); BILIRUBIN,TOTAL 0.4 MG/DL (0.2-1.0); BLOOD UREA NITROGEN 9 MG/DL (7-18); CALCIUM LEVEL 9.5 MG/DL (8.5-10.1); CARBON DIOXIDE LEVEL 30 MEQ/L (21-32); CHLORIDE LEVEL 109 MEQ/L (98-107); CREATININE FOR GFR 0.94 MG/DL (0.55-1.30); GLOMERULAR FILTRATION RATE > 60.0 (>60); GLUCOSE, FASTING 90 MG/DL (70-100); LIPASE 65 U/L (73-393); POTASSIUM SERUM 4.6 MEQ/L (3.5-5.1); SODIUM LEVEL 142 MEQ/L (136-145); TOTAL PROTEIN 7.4 GM/DL (6.4-8.2)
[2021-03-21 12:46] LABS: HCG, SERUM QUALITATIVE NEGATIVE (NEGATIVE)
[2021-03-21] MEDS ORDERED: ISOVUE-370 76% 100ML VIAL As Ordered ONE (13:11)
[2021-03-21 14:24] LABS: APPEARANCE, URINE HAZY (CLEAR); BACTERIA, URINE AUTO 1+ (NEGATIVE); BILIRUBIN, URINE AUTO NEGATIVE (NEGATIVE); BLOOD, URINE BLOOD 1+ (NEGATIVE); COLOR, URINE STRAW (YELLOW); GLUCOSE, URINE (UA) AUTO NEGATIVE (NEGATIVE); KETONE, URINE AUTO NEGATIVE (NEGATIVE); LEUKOCYTE ESTERASE, URINE AUTO 2+ (NEGATIVE); NITRITE, URINE AUTO NEGATIVE (NEGATIVE); PROTEIN, URINE AUTO NEGATIVE (NEGATIVE); RBC, URINE AUTO 1 /HPF (0-3); SPECIFIC GRAVITY URINE AUTO 1.006 (1.002-1.035); SQUAMOUS EPITHELIAL CELL UR AU 2 /HPF (0-6); UROBILINOGEN, URINE AUTO 0.2 mg/dL (0.0-2.0); WBC, URINE AUTO 7 /HPF (0-3)
[2021-03-21] MEDS ORDERED: ONDANSETRON 4MG/2ML VIAL IV ONE (14:55)
[2021-03-21] MEDS ORDERED: diphenhydrAMINE 50MG/ML VIAL (J1200) IV ONE (14:55)
[2021-03-21] MEDS ORDERED: DIFI200T PO (16:41)
[2021-03-21] MEDS ORDERED: ONDA4TAB6 PO (16:41)
[2021-03-21 16:59] VITALS: BP 118/58
[2021-03-21] MEDS ORDERED: FIRV50SO PO ×2 (18:47→19:06)
== END 2021-03-21 17:04 | disposition home or self-care (01) ==
LOC: M ED 10:35
DX: K52.9 Noninfective gastroenteritis and colitis, unspecified (principal); D43.2 Neoplasm of uncertain behavior of brain, unspecified; B96.89 Other specified bacterial agents as the cause of diseases classified elsewhere; J45.909 Unspecified asthma, uncomplicated; N80.9 Endometriosis, unspecified; F60.3 Borderline personality disorder; F41.9 Anxiety disorder, unspecified; Z79.899 Other long term (current) drug therapy; Z97.5 Presence of (intrauterine) contraceptive device; Z88.8 Allergy status to other drugs, medicaments and biological substances; Z91.018 Allergy to other foods
CPT/HCPCS: 70450; 74177; 80048; 80076; 81001; 83690; 84703; 85025; 87505; 87798; 96365; 96366; 96375; 99284; J0131; J1200; J2405; J2765; Q9967

== ENCOUNTER 2021-04-04 08:30 | Inpatient (IN) | payer OTHER ==
[~2021-04-04] VITALS: Ht 167.6 cm; Wt 145.8 kg
[~2021-04-04 08:30] MED LIST changes: +DIFI200T PO; -DOXY-443 PO; +DOXY1CAP62 PO; +FIRV50SO PO; +ONDA4TAB6 PO; +TRAZ-252 PO
[2021-04-04] MEDS ORDERED: DIFI200T PO (08:38)
[2021-04-04 09:58] LABS: BASO # 0.1 10^3/uL (0.0-0.2); BASO % 0.4 % (0.0-1.0); EOS # 0.3 10^3/uL (0.0-0.5); EOS % 1.7 % (0.0-3.0); HEMATOCRIT 47.6 % (36.0-47.0); HEMOGLOBIN 15.8 g/dl (12.0-15.5); LYMPH # 2.7 10^3/uL (1.5-5.0); LYMPH % 16.6 % (24.0-44.0); MEAN CORPUSCULAR HEMOGLOBIN 30.6 pg (27.0-33.0); MEAN CORPUSCULAR HGB CONC 33.2 g/dl (32.0-36.5); MEAN CORPUSCULAR VOLUME 92.1 fl (80.0-96.0); MONO % 6.1 % (2.0-8.0); NEUTROPHILS # 12.1 10^3/uL (1.5-8.5); NEUTROPHILS % 74.8 % (36.0-66.0); PLATELET COUNT, AUTOMATED 405 10^3/uL (150-450); RED BLOOD COUNT 5.17 10^6/uL (4.00-5.40); WHITE BLOOD COUNT 16.2 10^3/uL (4.0-10.0)
[2021-04-04] MEDS ORDERED: KETOROLAC 30 MG/ML 1ML VIAL IV ONE (10:20)
[2021-04-04] MEDS ORDERED: ONDANSETRON 4MG/2ML VIAL IV ONE (10:20)
[2021-04-04] MEDS ORDERED: NS 1,000 ML IV ONE (10:20)
[2021-04-04 10:42] LABS: ALBUMIN 4.4 GM/DL (3.2-5.2); ALT/SGPT 71 U/L (12-78); BILIRUBIN,DIRECT < 0.1 MG/DL (0.0-0.2); BILIRUBIN,TOTAL 0.5 MG/DL (0.2-1.0); LIPASE 105 U/L (73-393); TOTAL PROTEIN 7.8 GM/DL (6.4-8.2)
[2021-04-04] MEDS ORDERED: ISOVUE-370 76% 100ML VIAL As Ordered ONE ×2 (10:48→23:18)
--- NOTE | 2021-04-04 11:46 | REP ---
INDICATION: abd pain. COMPARISON: 03/21/2021 TECHNIQUE: Axial contrast-enhanced images from the lung bases to the pubic symphysis using 100 cc Isovue 370 intravenous contrast material. Coronal and sagittal reformations obtained. This CT examination was performed using the following dose reduction techniques: Automated exposure control, adjustment of mA and/or kv according to the patient's size, and the use of iterative reconstruction technique. FINDINGS: Mild hepatomegaly and hepatosteatosis noted without focal hepatic lesion. Spleen, pancreas, bilateral adrenal glands and kidneys are normal. Evidence for prior cholecystectomy noted. The enteric system including stomach, small, and large bowel appears normal. No evidence for obstruction or acute inflammatory process. Normal terminal ileum and appendix are identified in the right lower quadrant. Pelvis demonstrates normal bladder and age-appropriate uterus/adnexa with IUD in satisfactory position. No ascites. No free air. No intraperitoneal or retroperitoneal adenopathy. Abdominal aorta and vasculature appear normal. Musculoskeletal structures are intact and without acute osseous abnormality. IMPRESSION: No acute abdominopelvic pathology appreciated. Mild hepatomegaly and hepatosteatosis. <Electronically signed by Gorge Stanton > 04/04/21 0144
[2021-04-04] MEDS ORDERED: MORPHINE 4 MG/ML 1ML VIAL/SYRINGE (J2270) IV ONE (12:20)
[2021-04-04] MEDS ORDERED: ONDA4TAB6 PO (13:44)
[2021-04-04] MEDS ORDERED: PROBCAP14 PO (13:44)
[2021-04-04] MEDS ORDERED: HOME MED LIST COMPLETE! XX SCH (13:45)
[2021-04-04] MEDS ORDERED: METOCLOPRAMIDE INJ 10MG/2ML VIAL (J2765 PER 1) IV SCH (14:00)
[2021-04-04 14:03] LABS: RSV AMPLIFICATION NEGATIVE (NEGATIVE)
[2021-04-04] MEDS: NS 1,000 ML IV SCH ×2 (14:25→15:05)
[2021-04-04] MEDS: ONDANSETRON 4MG/2ML VIAL IV SCH ×2 (14:25→19:48)
--- NOTE | 2021-04-04 14:57 | HPEPDOC ---
[facility] Medical History & Physical Date of Admission Apr 04, 2021 Date of Service: Apr 04, 2021 History and Physical CHIEF COMPLAINT: Diarrhea 6-7 times a day, watery nonbloody nonmucousy without fever chills HISTORY OF PRESENT ILLNESS: 25-year-old female with recent diagnosis of C. difficile colitis treated with 4 days of vancomycin with persistent 6 to 7-day loose bowel movements with nausea vomiting 3-4 times a day decreased oral intake and 17 pound weight loss without fever chills and crampy abdominal pain diffusel y without abdominal distention. Patient was changed over to Dificid and after taking 3 doses patient has had no relief with increasing nausea intractable vomiting presented to the emergency room for admission. CT abdomen pelvis was unremarkable white count was 16,000 she was afebrile hospitalist was asked to admit the patient due to ongoing diarrhea and decrease in oral intake. Patient says that her symptoms started a month after the February 18 when she experienced daily loose bowel movements which has worsened over the past few days she denies any antibiotic use or any sick contacts with anyone with C. difficile infection. She said that since her gallbladder was removed in 2013 she has had epigastric abdominal pain persistent loose stools usually once a day but not this much at 6-7 times a day. She was told to eat less and more frequently while she was on oral vancomycin and she had seen a decrease in bowel movements to 3-4 times a day. Due to the persistent symptoms she was switched over to Dificid with increase in loose watery stools and decrease in oral intake prompting her to come for further evaluation to the hospital. In the ER patient had lactic acidosis leukocytosis and persistent intractable vomiting, necessitating hospitalization. Patient denies any radiation of the pain rated at 3 out of 10 crampy worse at 7 out of 10 at times. She denied NSAID use for pain control. 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 Stinson and oncologist Endometriosis depression anxiety PCOS and hirsutism scalp psoriasis DWAYNE not on CPAP PAST SURGICAL HISTORY: Gamma knife radiation for left cavernous sinus angiomatous meningioma cholecystectomy 2013 [facility]NA 2000 SOCIAL HISTORY: On disability denies alcohol recreational drug use or smoking FAMILY HISTORY: Mother with brain tumor depression anxiety Father siblings alive maternal grandfather with COPD ALLERGIES: Please see below. REVIEW OF SYSTEMS: 10 point review of systems negative aside from positive findings on HPI HOME MEDICATIONS: Please see below. PHYSICAL EXAMINATION: VITAL SIGNS: See below GENERAL APPEARANCE: Awake alert oriented no distress HEENT: Moist mucous membranes no JVD thyromegaly stridor neck supple full range of motion pupils equally round reactive extract muscles are intact CARDIOVASCULAR: S1-S2 regular rate rhythm LUNGS: Air entry is equal bilaterally clear to auscultation no wheezing rales or rhonchi ABDOMEN: Positive bowel sounds soft nontender nondistended no rebound or guarding no hepatosplenomegaly obese abdomen no CVA tenderness EXTREMITIES: No cyanosis clubbing or pitting edema LABORATORY DATA: See below. IMAGING: See below MICROBIOLOGY: Please see below. ASSESSMENT: 25-year-old female with history of cholecystectomy 2013 with on and off loose stools from 2013 2020 without antibiotic use or sick contact with anyone diagnosed with C. difficile infection presents emergency room after being treated for 4 days with vancomycin for positive C. difficile on PCR , changed to Dificid and completed 3 doses presents with intractable nausea vomiting and 6-7 bowel movements daily. Intractable C. difficile colitis -N.p.o. 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 Stinson and oncologist Endometriosis depression anxiety PCOS and hirsutism scalp psoriasis DWAYNE not on CPAP Vital Signs Vital Signs Date Time Temp Pulse Resp B/P (MAP) Pulse Ox O2 Delivery O2 Flow Rate FiO2 04/04/21 12:47 18 04/04/21 12:42 98.6 81 117/58 (77) 100 Room Air Laboratory Data Labs 24H Laboratory Tests 2 04/04/21 09:46: Immature Granulocyte % (Auto) 0.4, Neutrophils (%) (Auto) 74.8H, Lymphocytes (%) (Auto) 16.6L, Monocytes (%) (Auto) 6.1, Eosinophils (%) (Auto) 1.7, Basophils (% ) (Auto) 0.4, Neutrophils # (Auto) 12.1H, Lymphocytes # (Auto) 2.7, Monocytes # (Auto) 1.0H, Eosinophils # (Auto) 0.3, Basophils # (Auto) 0.1, Nucleated Red Blood Cells % (auto) 0.0, Total Bilirubin 0.5, Direct Bilirubin < 0.1, Aspartate Amino Transf (AST/SGOT) 36, Alanine Aminotransferase (ALT/SGPT) 71, Alkaline Phosphatase 92, Total Protein 7.8, Albumin 4.4, Albumin/Globulin Ratio 1.3, Lipase 105 04/04/21 09:47: POC Glucose (Misc Panel) 99, POC Sodium (Misc Panel) 145, POC Potassium (Misc Panel) 3.9, POC Chloride (Misc Panel) 108, POC Total CO2 (Misc Panel) 23.0, POC Blood Urea Nitrogen (Misc Panel 9, POC Ionized Calcium (Misc Panel) 4.8, POC Creatinine (Misc Panel) 0.9, POC Hematocrit (Misc Panel) 46.0 04/04/21 09:50: POC Beta HCG, Quantitative < 5.0 04/04/21 10:35: Lactic Acid Level 2.3*H 04/04/21 12:03: Urine Color YELLOW, Urine Appearance HAZY, Urine pH 6.0, Urine Specific [place] 1.011, Urine Protein NEGATIVE, Urine Glucose (UA) NEGATIVE, Urine Ketones NEGATIVE, Urine Blood 3+H, Urine Nitrite NEGATIVE, Urine Bilirubin NEGATIVE, Urine Urobilinogen 0.2, Urine Leukocyte Esterase 3+H, Urine WBC (Auto) 26H, Urine RBC (Auto) 10H, Urine Hyaline Casts (Auto) 0, Urine Bacteria (Auto) 1+H, Urine Squamous Epithelial Cells 7, Urine Mucus (Auto) SMALL, Urine Sperm (Auto) 04/04/21 13:13: Coronavirus (COVID-19)(PCR) NEGATIVE, Influenza Type A (RT-PCR) NEGATIVE, Influenza Type B (RT-PCR) NEGATIVE, Respiratory Syncytial Virus (PCR) NEGATIVE CBC/BMP Laboratory Tests 04/04/21 09:46 Microbiology Microbiology 04/04/21 Urine Culture, Received Pending 04/04/21 Blood Culture, Received Pending 04/04/21 Blood Culture, Received Pending Home Medications Scheduled Fidaxomicin (Dificid) 200 Mg Tablet, 200 MG PO BID STARTED 04/02/21 FOR 10 DAYS Lactobacillus Acidophilus (Probiotic) 1 Each Capsule, 1 CAP PO DAILY Scheduled PRN Divalproex Sodium (Divalproex Sodium) 250 Mg Tablet.dr, 250 MG PO BID PRN for M IGRAINE TAKE WITH FOLIC ACID Folic Acid (Folic Acid) 1 Mg Tablet, 1 MG PO DAILY PRN for MIGRAINE TAKE WITH DEPAKOTE Ibuprofen (Ibuprofen) 600 Mg Tablet, 600 MG PO Q6H PRN for MILD PAIN (PS 1-4) Ondansetron (Ondansetron Odt) 4 Mg Tab.rapdis, 4 MG PO Q6H PRN for NAUSEA OR VOMITING Sumatriptan Succinate (Sumatriptan Succinate) 100 Mg Tablet, 100 MG PO BID PRN for HEADACHE Trazodone HCl (Trazodone HCl) 50 Mg Tablet, 50 MG PO QHS PRN for SLEEP Miscellaneous Medications Levonorgestrel (Mirena) 1 Each Iud, 20 MCG IU Allergies Coded Allergies: bupropion (Verified Allergy, Severe, 03/21/21) paroxetine (Verified Allergy, Severe, 03/21/21) budesonide (Verified Allergy, Intermediate, facial swelling, 03/21/21) dexamethasone (Verified Allergy, Intermediate, hives, 03/21/21) Protein Milk (Verified Adverse Reaction, Mild, abd pain, 03/21/21) A-FIB/CHADSVASC A-FIB History Current/History of A-Fib/PAF?: No Current PO Anticoag Therapy: No Age/Risk Factor Scoring CHADSVASC: CHADSVASC Response (Comments) Value Age Risk Factor Age < 65 years old 0 Gender Risk Factor Female 1 Hx of CHF No 0 Hx of HTN No 0 Hx of Stroke/TIA/or VTE No 0 Hx of Diabetes No 0 Hx of Vascular Disease No 0 Total 1 Treatment Treatment ordered: NONE OLIVIER MACKENZIE MD Apr 04, 2021 14:57
[2021-04-04 16:30] VITALS: BP 148/83
[2021-04-04] MEDS: D5W/0.45% SODIUM CHLORIDE 1,000 ML IV SCH ×2 (17:30→23:34)
[2021-04-04] MEDS: KETOROLAC 30 MG/ML 1ML VIAL IV SCH ×2 (17:30→21:42)
[2021-04-04] MEDS ORDERED: PROMETHAZINE 25MG SUPP PR PRN (17:55)
[2021-04-04] MEDS ORDERED: traZODone 50 MG TAB PO PRN (18:50)
[2021-04-04] MEDS ORDERED: DIVALPROEX 250 MG TAB PO PRN (18:50)
[2021-04-04] MEDS ORDERED: FOLIC ACID 1 MG TAB PO PRN (18:50)
[2021-04-04] MEDS ORDERED: SUMAtriptan SUCCINATE 25 MG TAB PO PRN (18:50)
[2021-04-04] MEDS ORDERED: METOCLOPRAMIDE INJ 10MG/2ML VIAL (J2765 PER 1) IV ONE (18:50)
[2021-04-04] MEDS: MORPHINE 4 MG/ML 1ML VIAL/SYRINGE (J2270) IV PRN (19:53)
[2021-04-04] MEDS: FIDAXOMICIN 200 MG TAB (DIFICID) PO SCH (19:54)
[2021-04-04] MEDS ORDERED: SIMETHICONE 80MG CHEW TAB PO PRN (21:40)
[2021-04-04 22:00] VITALS: BP 155/108
[2021-04-04] MEDS: METOCLOPRAMIDE INJ 10MG/2ML VIAL (J2765 PER 1) IV SCH (23:00)
[2021-04-04] MEDS ORDERED: HYDROMORPHONE HCL 0.5 MG/ 0.5 ML SYRINGE (J1170 PER 1) IV ONE (23:10)
--- NOTE | 2021-04-05 02:19 | REPVR ---
PROCEDURE INFORMATION: Exam: CT Abdomen And Pelvis Without Contrast Exam date and time: 04/04/2021 11:43 PM Age: 25 years old Clinical indication: Abdominal pain; Generalized; Additional info: Intractable abd pain TECHNIQUE: Imaging protocol: Computed tomography of the abdomen and pelvis without contrast. Radiation optimization: All CT scans at this facility use at least one of these dose optimization techniques: automated exposure control; mA and/or kV adjustment per patient size (includes targeted exams where dose is matched to clinical indication); or iterative reconstruction. COMPARISON: 1. CT ABD/PEL W/IV CONTRAST ONLY 2021-04-04 10:[address] ABD/PEL W/IV CONTRAST ONLY 2021-03-21 13:52 FINDINGS: Limitations: Limited by patient's body habitus. Liver: Hepatic steatosis. Gallbladder and bile ducts: Cholecystectomy clips in the right upper quadrant. Pancreas: Normal. No ductal dilation. Spleen: Normal. No splenomegaly. Adrenal glands: Normal. No mass. Kidneys and ureters: Contrast in the renal collecting system related to yesterday's CT abdomen and pelvis, correlate for renal contrast nephropathy. Stomach and bowel: Unremarkable. No obstruction. No mucosal thickening. Appendix: No evidence of appendicitis. Intraperitoneal space: Unremarkable. No free air. No significant fluid collection. Vasculature: Unremarkable. No abdominal aortic aneurysm. Lymph nodes: Unremarkable. No enlarged lymph nodes. Urinary bladder: Unremarkable as visualized. Reproductive: Intrauterine device appears appropriately positioned. Bones/joints: Unremarkable. No acute fracture. Soft tissues: Unremarkable. IMPRESSION: 1. Contrast in the renal collecting system related to yesterday's CT abdomen and pelvis, correlate for renal contrast nephropathy. 2. Hepatic steatosis. Electronically signed by: Timo Arreguin On 04/05/2021 02:18:19 AM
[2021-04-05] MEDS: KETOROLAC 30 MG/ML 1ML VIAL IV SCH ×4 (03:20→20:54)
[2021-04-05] MEDS: ONDANSETRON 4MG/2ML VIAL IV SCH ×4 (03:20→20:53)
[2021-04-05] MEDS: METOCLOPRAMIDE INJ 10MG/2ML VIAL (J2765 PER 1) IV SCH ×4 (05:39→23:30)
[2021-04-05] MEDS: D5W/0.45% SODIUM CHLORIDE 1,000 ML IV SCH (05:39)
[2021-04-05 06:10] VITALS: BP 135/93
[2021-04-05] MEDS: FIDAXOMICIN 200 MG TAB (DIFICID) PO SCH ×2 (08:37→20:54)
[2021-04-05 09:20] LABS: HEMATOCRIT 39.6 % (36.0-47.0); MEAN CORPUSCULAR HEMOGLOBIN 30.8 pg (27.0-33.0); MEAN CORPUSCULAR HGB CONC 32.8 g/dl (32.0-36.5); MEAN CORPUSCULAR VOLUME 93.8 fl (80.0-96.0); RED BLOOD COUNT 4.22 10^6/uL (4.00-5.40)
[2021-04-05 09:26] LABS: PLATELET COUNT, AUTOMATED 255 10^3/uL (150-450)
[2021-04-05 09:48] LABS: BLOOD UREA NITROGEN 6 MG/DL (7-18); CALCIUM LEVEL 8.5 MG/DL (8.5-10.1); CARBON DIOXIDE LEVEL 24 MEQ/L (21-32); CHLORIDE LEVEL 116 MEQ/L (98-107); CHOLESTEROL LEVEL 98 MG/DL (<200); CHOLESTEROL RISK RATIO 4.454 (<5); CREATININE FOR GFR 0.73 MG/DL (0.55-1.30); GLOMERULAR FILTRATION RATE > 60.0 (>60); GLUCOSE, FASTING 103 MG/DL (70-100); HDL CHOLESTEROL 22 MG/DL (>40); LDL CHOLESTEROL 52 MG/DL (<100); MAGNESIUM LEVEL 2.1 MG/DL (1.8-2.4); NON-HDL-C 76 MG/DL; POTASSIUM SERUM 3.8 MEQ/L (3.5-5.1); SODIUM LEVEL 145 MEQ/L (136-145); TRIGLYCERIDES LEVEL 119 MG/DL (<150)
--- NOTE | 2021-04-05 10:51 | IPNPDOC ---
Date Seen The patient was seen on 04/05/21. Progress Note SUBJECTIVE: Patient was seen and examined at bedside . She still continues to have occasion al nausea despite antiemetics. She still complains of diffuse abdominal discomfort described as crampy on and off and comes in waves. 5/10 on a pain scale OBJECTIVE: PHYSICAL EXAMINATION: VITAL SIGNS: See below GENERAL APPEARANCE: Awake alert oriented no distress no icterus jaundice or use of respiratory accessory muscles HEENT: Moist mucous membranes no JVD thyromegaly stridor neck supple full range of motion pupils equally round reactive extract muscles are intact CARDIOVASCULAR: S1-S2 regular rate rhythm no S3 LUNGS: Air entry is equal bilaterally clear to auscultation no wheezing rales or rhonchi inspiratory expiratory ratio 1:2 ABDOMEN: Positive bowel sounds soft slightly tender nondistended no rebound or guarding no hepatosplenomegaly obese abdomen no CVA tenderness EXTREMITIES: No cyanosis clubbing or pitting edema LABORATORY DATA: See below. IMAGING: See below MICROBIOLOGY: Please see below. ASSESSMENT: 25-year-old female with history of cholecystectomy 2013 with on and off loose stools from 2013 2020 without antibiotic use or sick contact with anyone diagnosed with C. difficile infection presents emergency room after being treated for 4 days with vancomycin for positive C. difficile on PCR , changed to Dificid and completed 3 doses presents with intractable nausea vomiting and 6-7 bowel movements daily. Intractable C. difficile colitis -Advance diet to liquid diet -Dificid 200 mg twice daily for 10 days -Patient family service consult for preauthorization for Zinplava to be given as an outpatient infusion -Antiemetics with IV Reglan and IV Zofran -Pain control with IV Toradol, but daily metabolic panel for azotemia -Patient has an outpatient referral to hr assistant in May -Patient is not tolerating a full diet yet and will need 1-2 more days of conservative management -Continue with IV fluids for now Super morbid obesity BMI 51.2 -Avoid opioid pain medications due to increased risk of respiratory acidosis and hypercarbic respiratory failure Occipital neuralgia migraines focal epilepsy 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 Stinson and oncologist Endometriosis depression anxiety PCOS and hirsutism scalp psoriasis DWAYNE not on CPAP VS, I&O, 24H, Fishbone Vital Signs/I&O Vital Signs Date Time Temp Pulse Resp B/P (MAP) Pulse Ox O2 Delivery O2 Flow Rate FiO2 04/05/21 06:10 97.1 97 20 135/93 (107) 97 Room Air I&O- Last 24 Hours up to 6 AM 04/05/21 05:59 Intake Total 3240 ml Output Total 300 ml Balance 2940 ml Laboratory Data 24H LABS Laboratory Tests 2 04/04/21 12:03: Urine Color YELLOW, Urine Appearance HAZY, Urine pH 6.0, Urine Specific [place] 1.011, Urine Protein NEGATIVE, Urine Glucose (UA) NEGATIVE, Urine Ketones NEGATIVE, Urine Blood 3+H, Urine Nitrite NEGATIVE, Urine Bilirubin NEGATIVE, Urine Urobilinogen 0.2, Urine Leukocyte Esterase 3+H, Urine WBC (Auto) 26H, Urine RBC (Auto) 10H, Urine Hyaline Casts (Auto) 0, Urine Bacteria (Auto) 1+H, Urine Squamous Epithelial Cells 7, Urine Mucus (Auto) SMALL, Urine Sperm (Auto) 04/04/21 13:13: Coronavirus (COVID-19)(PCR) NEGATIVE, Influenza Type A (RT-PCR) NEGATIVE, Influenza Type B (RT-PCR) NEGATIVE, Respiratory Syncytial Virus (PCR) NEGATIVE 04/04/21 16:52: Lactic Acid Followup at 4 Hours 1.3 04/05/21 08:58: Nucleated Red Blood Cells % (auto) 0.0, Anion Gap 5L, Glomerular Filtration Rate > 60.0, Estimated Mean Plasma Glucose 97, Hemoglobin A1c 5.0, Calcium Level 8.5, Magnesium Level 2.1, Triglycerides Level 119, Total Cholesterol 98, LDL Cholesterol 52, Non-HDL Cholesterol (LDL + VLDL) 76, Total HDL Cholesterol 22L, Cholesterol/HDL Ratio 4.454 CBC/BMP Laboratory Tests 04/05/21 08:58 Microbiology Microbiology 04/04/21 Urine Culture - Final, Complete 04/04/21 Blood Culture - Preliminary, Resulted No growth after 24 hours . All specim... 04/04/21 Blood Culture, Received Pending OLIVIER MACKENZIE MD Apr 05, 2021 10:51
[2021-04-05] MEDS: MORPHINE 4 MG/ML 1ML VIAL/SYRINGE (J2270) IV PRN (12:22)
[2021-04-05 14:00] VITALS: BP 133/72
[2021-04-05 22:00] VITALS: BP 134/79
[2021-04-06] MEDS: ONDANSETRON 4MG/2ML VIAL IV SCH ×2 (02:58→08:00)
[2021-04-06] MEDS: KETOROLAC 30 MG/ML 1ML VIAL IV SCH ×2 (02:59→09:00)
[2021-04-06] MEDS: METOCLOPRAMIDE INJ 10MG/2ML VIAL (J2765 PER 1) IV SCH ×2 (05:27→11:00)
[2021-04-06 06:00] VITALS: BP 163/95
[2021-04-06 07:32] LABS: HEMATOCRIT 40.8 % (36.0-47.0); HEMOGLOBIN 13.5 g/dl (12.0-15.5); MEAN CORPUSCULAR HEMOGLOBIN 30.8 pg (27.0-33.0); MEAN CORPUSCULAR HGB CONC 33.1 g/dl (32.0-36.5); MEAN CORPUSCULAR VOLUME 92.9 fl (80.0-96.0); PLATELET COUNT, AUTOMATED 304 10^3/uL (150-450); RED BLOOD COUNT 4.39 10^6/uL (4.00-5.40); WHITE BLOOD COUNT 11.5 10^3/uL (4.0-10.0)
[2021-04-06 07:55] LABS: BLOOD UREA NITROGEN 7 MG/DL (7-18); CALCIUM LEVEL 8.5 MG/DL (8.5-10.1); CARBON DIOXIDE LEVEL 24 MEQ/L (21-32); CHLORIDE LEVEL 115 MEQ/L (98-107); CREATININE FOR GFR 0.99 MG/DL (0.55-1.30); GLOMERULAR FILTRATION RATE > 60.0 (>60); GLUCOSE, FASTING 83 MG/DL (70-100); MAGNESIUM LEVEL 2.2 MG/DL (1.8-2.4); POTASSIUM SERUM 3.9 MEQ/L (3.5-5.1); SODIUM LEVEL 144 MEQ/L (136-145)
[2021-04-06] MEDS ORDERED: D5W/0.45% SODIUM CHLORIDE 1,000 ML IV SCH (08:55)
[2021-04-06] MEDS: FIDAXOMICIN 200 MG TAB (DIFICID) PO SCH (10:35)
--- NOTE | 2021-04-06 11:59 | IPNPDOC ---
Date Seen The patient was seen on 04/06/21. Progress Note SUBJECTIVE: Patient says that she has been having some formed stools and had to this morning . but when she drank liquids such as her vahid lindsay she had increasing watery discharge. She denies any abdominal pain today no nausea or vomiting no fever chills overnight No abdominal distention OBJECTIVE: PHYSICAL EXAMINATION: VITAL SIGNS: See below GENERAL APPEARANCE: Sitting on the sofa by the window ambulating well no distress speaks in full sentences HEENT: Moist mucous membranes no JVD thyromegaly stridor neck supple full range of motion pupils equally round reactive extract muscles are intact CARDIOVASCULAR: S1-S2 regular rate rhythm no S3 LUNGS: Air entry is equal bilaterally clear to auscultation no wheezing rales or rhonchi inspiratory expiratory ratio 1:2 ABDOMEN: Positive bowel sounds soft slightly tender nondistended no rebound or guarding no hepatosplenomegaly obese abdomen no CVA tenderness EXTREMITIES: No cyanosis clubbing or pitting edema LABORATORY DATA: See below. IMAGING: See below MICROBIOLOGY: Please see below. ASSESSMENT: 25-year-old female with history of cholecystectomy 2013 with on and off loose stools from 2013 2020 without antibiotic use or sick contact with anyone diagnosed with C. difficile infection presents emergency room after being treated for 4 days with vancomycin for positive C. difficile on PCR , changed to Dificid and completed 3 doses presents with intractable nausea vomiting and 6-7 bowel movements daily. Intractable C. 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 Stinson and oncologist Endometriosis depression anxiety PCOS and hirsutism scalp psoriasis DWAYNE not on CPAP Disposition: May discharge home today if tolerating her diet she is to complete a 10-day course of Dificid and Zinplava infusion on Friday at 4 PM. VS, I&O, 24H, Fishbone Vital Signs/I&O Vital Signs Date Time Temp Pulse Resp B/P (MAP) Pulse Ox O2 Delivery O2 Flow Rate FiO2 04/06/21 06:00 97.0 58 20 163/95 (117) 98 Room Air I&O- Last 24 Hours up to 6 AM 04/06/21 06:00 Intake Total 800 ml Output Total 50 ml Balance 750 ml Laboratory Data 24H LABS Laboratory Tests 2 04/06/21 06:49: Nucleated Red Blood Cells % (auto) 0.0, Anion Gap 5L, Glomerular Filtration Rate > 60.0, Calcium Level 8.5, Magnesium Level 2.2 CBC/BMP Laboratory Tests 04/06/21 06:49 Microbiology Microbiology 04/04/21 Urine Culture - Final, Complete 04/04/21 Blood Culture - Preliminary, Resulted No Growth after 48 hours. All Specime... 04/04/21 Blood Culture - Preliminary, Resulted No growth after 24 hours . All specim... OLIVIER MACKENZIE MD Apr 06, 2021 11:18
== END 2021-04-06 13:30 | disposition home or self-care (01) | DRG 248 ==
LOC: M ED 08:30 → M ED INP 13:39 → ENRESERV 15:34 → M MS5PR 17:07
PROVIDERS: ADMIT General Practice; ATTEND General Practice
DX: A04.72 Enterocolitis due to Clostridium difficile, not specified as recurrent (principal); Z68.43 Body mass index [BMI] 50.0-59.9, adult; G40.109 Localization-related (focal) (partial) symptomatic epilepsy and epileptic syndromes with simple partial seizures, not intractable, without status epilepticus; E66.01 Morbid (severe) obesity due to excess calories; Z90.49 Acquired absence of other specified parts of digestive tract; M54.81 Occipital neuralgia; G43.909 Migraine, unspecified, not intractable, without status migrainosus; F32.9 Major depressive disorder, single episode, unspecified; F41.9 Anxiety disorder, unspecified; E28.2 Polycystic ovarian syndrome; N80.9 Endometriosis, unspecified; L68.0 Hirsutism; L40.8 Other psoriasis; G47.33 Obstructive sleep apnea (adult) (pediatric); Z20.822 Contact with and (suspected) exposure to COVID-19; Z79.899 Other long term (current) drug therapy; Z88.8 Allergy status to other drugs, medicaments and biological substances; Z91.011 Allergy to milk products

== ENCOUNTER 2021-04-11 15:32 | Outpatient (CLI) | payer OTHER ==
[~2021-04-11 15:32] MED LIST changes: +BEZLOTOXUMAB IV ONE; +NS IV ONE; +PROBCAP14 PO
[2021-04-11 15:58] VITALS: BP 148/72
[2021-04-11 17:22] VITALS: BP 128/70
[2021-04-11 17:45] VITALS: BP 133/78
== END 2021-04-11 17:45 | disposition home or self-care (01) ==
LOC: M INFU 15:32
PROVIDERS: ATTEND General Practice
DX: A04.71 Enterocolitis due to Clostridium difficile, recurrent (principal); Z88.8 Allergy status to other drugs, medicaments and biological substances

== ENCOUNTER 2021-07-09 02:42 | Emergency (ER) | payer OTHER ==
[~2021-07-09] VITALS: Ht 167.6 cm; Wt 132.6 kg
[2021-07-09 02:42] VITALS: BP 159/79
--- OUTSIDE RECORDS SUMMARY | 2021-07-09 02:49 | CCD ---
Author Author [facility] Organization [facility] Address Unknown Phone Unavailable Care Team Providers Care City Secretary Name Role Phone Keily Velasco Unavailable PROBLEMS Type Condition ICD9-CM Code [id number] Code Onset Dates Condition S tatus W/U Status Risk SNOMED Code Notes Problem Fatigue R53.83 Active confirmed 50137325 Problem Major depressive disorder, single episode, unspecified F32.9 Active confirmed 86801061 Problem Vitamin D deficiency E55.9 Active confirmed 80585753 Problem Numbness R20.0 Active confirmed 13446589 Problem Irregular menstrual bleeding N92.6 Active confirme d 24255759 Problem Primary oligomenorrhea N91.3 Active confirmed 91140622 Problem Daytime somnolence R40.0 Active confirmed 1 79882291878 Problem Psoriasis of scalp L40.9 Active confirmed 2 67237713 Problem 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 Active confirmed 894390686 Problem Severe major depression F32.2 Active confirmed 960078550 Problem Primary insomnia F51.01 Active confirmed 397 2004 Problem Morbid obesity E66.01 Active confirmed 82254 6002 Problem Brain mass G93.89 Active confirmed 992398238 Problem Endometriosis N80.9 Active confirmed 464943 003 Problem Clostridium difficile colitis A04.72 Active confirm ed 186163429 Problem Anxiety F41.9 Active confirmed 22119859 Problem Encounter for gynecological examination with abnormal finding Z01.411 Active confirmed 293801007 Problem Hirsutism L68.0 Active confirmed 604083162 Problem PCOS (polycystic ovarian syndrome) E28.2 Activ e confirmed 424782143 Problem Migraine with aura and without status migrainosu s, not intractable G43.109 Active confirmed 4666961 Problem DWAYNE (obstructive sleep apnea) G47.33 Active confirm ed 50682367 ALLERGIES Allergen (clinical drug ingredient) Drug/Non Drug Allergy do cumented on EMR Reaction Allergy Type Onset Date Status dexamethasone Dexamethasone([facility] Code:[address]-24) Anaphylaxis Drug Allergy Active budesonide Pulmicort([facility] Code:[address]-57) Anaphylaxis Drug Allergy Active Wellbutrin Restlessness/agitation Drug Allergy Active paroxetine Paxil([facility] Code:[address]-74) chills/martha vering alternating with hot flashes Drug Allergy Active ENCOUNTERS from 1995 to 2021-06-07 Encounter Location Date Provider Diagnosis [facility] [address] [phone] [place] [address] May, [facility] IMMUNIZATIONS No Information SOCIAL HISTORY Tobacco Use: Social History Observation Description Date Details (start date - stop date) Never Smoker Sex Assigned At : Social History Observation Description Sex Assigned At Unknown Education: Question Answer Notes Level of Education: Finished High School currently at [employer] Audit Question Answer Notes Total Score: 0 Interpretation: Alcohol Education Samaritan: Question Answer Notes Samaritan No orthodoxy beliefs that would impact health care. Sexual Hx: Question Answer Notes Had sex in the last 12 months (vaginal, oral, or anal)? Yes LMP: 3 months ago Have you ever had an STD? No Prevention Strategies discussed: Condoms with Men only Use protection? Yes How often? 90% Drug and Alcohol Question Answer Notes Total Score: 0 Interpretation: No problems reported Alcohol Screening: Question Answer Notes Did you have a drink containing alcohol in the past year? No Points 0 Interpretation Negative BMI Care Goal Follow-Up Question Answer Notes Above Normal BMI Follow-Up Dietary management educatio n, guidance, and counseling Tobacco Use: Question Answer Notes Are you a: never smoker never smoker REASON FOR REFERRAL No Information VITAL SIGNS No information MEDICATIONS Medication SIG (Take, Route, Frequency, Duration) Notes Start Da te End Date Status Ondansetron 4 MG 1 tablet on the tongue and a llow to dissolve Orally Every 6 hours as needed Active Bacid - as directed Orally Mar, Acti ve Firvanq 25 MG/ML 5 ml Orally qid Mar, N ot-Taking Drisdol 1.25 MG (19432 UT) 1 capsule Orally weekly for 30 day(s) December, Not-Taking Vancomycin HCl 250 MG 2 cap Orally four times a day for 10 days Mar, Not-Taking Folic Acid 1 MG TAKE ONE TABLET BY MOUTH EVERY DAY Oral for 30 Active Ibuprofen 800 MG TAKE 1 TABLET BY MOUTH TWO T IMES A DAY NEEDED FOR HEADACHES MAXIMUM DAILY DOSE 2 Oral for 10 Active Omeprazole 40 MG 1 capsule 30 minutes before morning meal Orally twice a day for 30 day(s) Feb, Not-Taking Spironolactone 50 MG 1 tablet Orally twice a day for 30 day(s) Feb, Not-Taking Mirena 20 MCG/24HR as directed Intrauterine Active DULoxetine HCl 20 MG take one capsule by mouth tw ice a day with food Oral as directed for 30 days Not-Taking Divalproex Sodium 250 MG TAKE ONE TABLET BY MOUTH TWICE A DAY Oral fo r 30 Active Firvanq 50 MG/ML 10 ml Orally four times a day for 10 day(s) Mar, Not-Taking SUMAtriptan Succinate 100 MG 1/2 1 TABLET AT ONSET O F HEADACHE MAY REPEAT AFTER 2 HOURS MAXIMUM DAILY DOSE 2 Oral for 26 Active traZODone HCl 50 MG 1 tablet at bedtime as neede d Orally at night as needed for 30 days Active Amitriptyline HCl 10 MG 1 tab Oral daily as needed for occip ital neuralgia pain Active Mupirocin 2 % 1 application to r middle fi nger Externally Three times a day for 5 day(s) Mar, Active Dificid 200 MG 1 tablet Orally Twice a day Mar, Active PROCEDURES No Information RESULTS No Results REASON FOR VISIT Cancel appt. MEDICAL (GENERAL) HISTORY Type Description Date Medical History Endometriosis - per Dr. Reyes [facility] Medical History Depression/Anxiety - Follows with Medical History PCOS ? 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 Stinson ([facility] Oncology Dr. Livingston Medical History Focal Epilepsy - On Depakote per Neurolo gy (Dr. Zurita) Medical History Migraines Medical History Occipital Neuralgia that developed after her RT Medical History DWAYNE - Diagnosed by Neurology with at home Sleep Study 2019 - Did not start CPAP due to difficulty obtaining machine during COVID Medical History On Disability - ER visit for syncope, MRI by Neurology 07/20/19 showed Angiomatous Meningioma left Cavernous sinus, Underwent Gamma Knife Radioation by 09/30/19 Medical History C. diff Colitis 03/2021 - Josué led po Vanco - admitted - treated with Dificid and Zinplava infusion Surgical History cholecystectomy 2013 Surgical History T & A 2001 Hospitalization History c-diff 03/2021 Goals Section No Information Health Concerns No Information MEDICAL EQUIPMENT No Information MENTAL STATUS No Information FUNCTIONAL STATUS No Information ASSESSMENTS No Information PLAN OF TREATMENT Medication Medication Name Sig Start Date Stop Date Mupirocin 2 % 1 application to [facility] nger Externally Three times a day for 5 day(s) Mar, Insurance Providers Payer Name Payer Address Payer Phone Insured Name Patient Relati onship to Insured Coverage Start Date Coverage End Date [facility] COMMUNITY PLAN [facility] [address] [facility] [phone] EMMANUELLE ODELL self
--- OUTSIDE RECORDS SUMMARY | 2021-07-09 02:49 | CCD ---
Author Author [facility] Organization [facility] Address Unknown Phone Unavailable Care Team Providers Care Bus Person Dishwasher Name Role Phone Yvette Dutta Unavailable PROBLEMS Type Condition ICD9-CM Code [id number] Code Onset Dates Condition S tatus W/U Status Risk SNOMED Code Notes Problem Fatigue R53.83 Active confirmed 58868520 Problem Major depressive disorder, single episode, unspecified F32.9 Active confirmed 63967781 Problem Vitamin D deficiency E55.9 Active confirmed 25024287 Problem Numbness R20.0 Active confirmed 14792209 Problem Irregular menstrual bleeding N92.6 Active confirme d 68120367 Problem Primary oligomenorrhea N91.3 Active confirmed 11946007 Problem Daytime somnolence R40.0 Active confirmed 1 19566086071 Problem Psoriasis of scalp L40.9 Active confirmed 2 96277339 Problem 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 Active confirmed 279684113 Problem Severe major depression F32.2 Active confirmed 319786920 Problem Primary insomnia F51.01 Active confirmed 397 2004 Problem Morbid obesity E66.01 Active confirmed 82715 6002 Problem Brain mass G93.89 Active confirmed 737285993 Problem Endometriosis N80.9 Active confirmed 357621 003 Problem Clostridium difficile colitis A04.72 Active confirm ed 504725009 Problem Anxiety F41.9 Active confirmed 99745851 Problem Encounter for gynecological examination with abnormal finding Z01.411 Active confirmed 480697405 Problem Hirsutism L68.0 Active confirmed 304987106 Problem PCOS (polycystic ovarian syndrome) E28.2 Activ e confirmed 762833258 Problem Migraine with aura and without status migrainosu s, not intractable G43.109 Active confirmed 5221973 Problem DWAYNE (obstructive sleep apnea) G47.33 Active confirm ed 59173057 ALLERGIES Allergen (clinical drug ingredient) Drug/Non Drug Allergy do cumented on EMR Reaction Allergy Type Onset Date Status dexamethasone Dexamethasone([facility] Code:[address]-11) Anaphylaxis Drug Allergy Active budesonide Pulmicort([facility] Code:[address]-80) Anaphylaxis Drug Allergy Active Wellbutrin Restlessness/agitation Drug Allergy Active paroxetine Paxil([facility] Code:[address]-31) chills/martha vering alternating with hot flashes Drug Allergy Active ENCOUNTERS from 1995 to 2021-05-07 Encounter Location Date Provider Diagnosis [facility] [address] [place], [place] [address] Mar, Yvette Dutta Severe major depression F32. 2 IMMUNIZATIONS No Information SOCIAL HISTORY Tobacco Use: Social History Observation Description Date Details (start date - stop date) Never Smoker Sex Assigned At : Social History Observation Description Sex Assigned At Unknown Education: Question Answer Notes Level of Education: Finished High School currently at [employer] Audit Question Answer Notes Total Score: 0 Interpretation: Alcohol Education Church: Question Answer Notes Church No lutheran beliefs that would impact health care. Sexual [...] qid Mar, N ot-Taking Drisdol 1.25 MG (64562 UT) 1 capsule Orally weekly for 30 [...] Information RESULTS No Results REASON FOR VISIT follow up MEDICAL (GENERAL) HISTORY Type Description Date Medical History Endometriosis - per [facility] Reyes [facility] Medical History Depression/Anxiety - Follows with Medical History PCOS ? 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 Stinson (Ne[facility]), Oncology Dr. Livingston Medical History Focal Epilepsy [...] cholecystectomy 2013 Surgical History T & A 2000 Hospitalization History c-diff 03/2021 Goals Section No Information Health Concerns No Information MEDICAL EQUIPMENT No Information MENTAL STATUS No Information FUNCTIONAL STATUS No Information ASSESSMENTS Encounter Date Diagnosis Assessment Notes Treatment Notes Treatm ent Clinical Notes Mar, Severe major depression (ICD-10 - F32.2) Rachael was seen for a follow up session. Reports symptoms have improved. Scheduled for a return session 04/16/2021. PLAN OF TREATMENT Medication Medication Name Sig Start Date Stop Date Mupirocin 2 % 1 application to r middle fi nger Externally Three times a day for 5 day(s) Mar, Treatment Notes Assessment Notes Clinical Notes Severe major depression Rachael was seen f or a follow up session. Reports symptoms have improved. Scheduled for a return session 04/16/2021. Insurance Providers Payer Name Payer Address Payer Phone Insured Name Patient Relati onship to Insured Coverage Start Date Coverage End Date [facility] COMM[facility]ITY [facility]AN [facility] [address] [facility] [phone] [phone] RACHAEL ODELL self
--- OUTSIDE RECORDS SUMMARY | 2021-07-09 02:49 | CCD ---
Author Author [facility] Organization [facility] Address Unknown Phone Unavailable Care Team Providers Care Ar Manager Name Role Phone Roberta Shah Unavailable PROBLEMS Type Condition ICD9-CM Code QPQ09-LV Code Onset Dates Condition S tatus W/U Status Risk SNOMED Code Notes Problem Fatigue R53.83 Active confirmed 24805474 Problem Major depressive disorder, single episode, unspecified F32.9 Active confirmed 64206392 Problem Vitamin D deficiency E55.9 Active confirmed 99687804 Problem Numbness R20.0 Active confirmed 94687159 Problem Irregular menstrual bleeding N92.6 Active confirme d 34806104 Problem Primary oligomenorrhea N91.3 Active confirmed 19061101 Problem Daytime somnolence R40.0 Active confirmed 1 60053979174 Problem Psoriasis of scalp L40.9 Active confirmed 2 05759304 Problem 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 Active confirmed 673927109 Problem Severe major depression F32.2 Active confirmed 346008196 Problem Primary insomnia F51.01 Active confirmed 397 2004 Problem Morbid obesity E66.01 Active confirmed 15781 6002 Problem Brain mass G93.89 Active confirmed 258708696 Problem Endometriosis N80.9 Active confirmed 584513 003 Problem Clostridium difficile colitis A04.72 Active confirm ed 330736231 Problem Anxiety F41.9 Active confirmed 47250290 Problem Encounter for gynecological examination with abnormal finding Z01.411 Active confirmed 053723550 Problem Hirsutism L68.0 Active confirmed 163336155 Problem PCOS (polycystic ovarian syndrome) E28.2 Activ e confirmed 076305153 Problem Migraine with aura and without status migrainosu s, not intractable G43.109 Active confirmed 3741950 Problem DWAYNE (obstructive sleep apnea) G47.33 Active confirm ed 15819247 ALLERGIES Allergen (clinical drug ingredient) Drug/Non Drug Allergy do cumented on EMR Reaction Allergy Type Onset Date Status dexamethasone Dexamethasone([facility] Code:[address]-00) Anaphylaxis Drug Allergy Active budesonide Pulmicort([facility] Code:[address]-83) Anaphylaxis Drug Allergy Active Wellbutrin Restlessness/agitation Drug Allergy Active paroxetine Paxil([facility] Code:[address]-98) chills/martha vering alternating with hot flashes Drug Allergy Active ENCOUNTERS from 1995 to 2021-04-26 Encounter Location Date Provider Diagnosis [facility] [address] [place] [address] Mar, Roberta Mikey-Tartell Paronychia of finger of right hand L03.0 11 IMMUNIZATIONS No Information SOCIAL HISTORY Tobacco Use: Social History Observation Description Date Details (start date - stop date) Never Smoker Sex Assigned At : Social History Observation Description Sex Assigned At Unknown Education: Question Answer Notes Level of Education: Finished High School currently at [employer] Audit Question Answer Notes Total Score: 0 Interpretation: Alcohol Education Voodoo: Question Answer Notes Voodoo No yazidism beliefs that would impact health care. Sexual [...] REASON FOR REFERRAL No Information VITAL SIGNS Weight 307 lbs Mar, Height 66" in Mar, BMI 49.55 kg/m2 Mar, Respiratory Rate 18 /min Mar, Temperature 98.1 degrees Fahrenheit Mar, Oximetry 99 Mar, Blood pressure systolic 132 mm Hg Mar, Blood pressure diastolic 80 mm Hg Mar, MEDICATIONS Medication SIG (Take, Route, Frequency, Duration) Notes Start Da te End Date Status Ondansetron 4 MG 1 tablet on the tongue and a llow to dissolve Orally Every 6 hours as needed Active Bacid - as directed Orally Mar, Acti ve Firvanq 25 MG/ML 5 ml Orally qid Mar, N ot-Taking Drisdol 1.25 MG (19899 UT) 1 capsule Orally weekly for 30 [...] Information RESULTS No Results REASON FOR VISIT concern with finger nail, discoloration of fingernail for several years, ne " bump " on fingernail x 1m, sore to touch, worse since last night MEDICAL (GENERAL) HISTORY Type Description Date Medical History Endometriosis - per Dr. Reyes [facility] Medical History Depression/Anxiety - Follows with [...] Treatment Notes Treatm ent Clinical Notes Mar, Paronychia of finger of right hand (ICD-10 - L03 .011) Very mild. Advised salt water soaks and careful monitoring; recently treated for C diff, and I don't think this needs more oral antibiotics at this point. Contact the office if not improving. Mar, Other It appears that she at least has scab under that fingernail with a little dried blood, can't tell if there was a foreign body at some point (or still is?) Advised to trim the nail short and leave it alone. She wanted a foreign body removed, but I'm not sure if there is anything present but scab right now, and I am afraid that she will just bleed more and maybe have discomfort from collecting blood under the nail, possibly requiring drilling or removing of the nail. Advised to wait and see as the scab resolves and nail grows out. PLAN OF TREATMENT Medication Medication Name Sig Start Date Stop Date Mupirocin 2 % 1 application to r middle fi nger Externally Three times a day for 5 day(s) Mar, Treatment Notes Assessment Notes Clinical Notes Paronychia of finger of right hand Very mild. Advised salt water soaks and careful monitoring; recently treated for C diff, and I don't think this needs more oral antibiotics at this point. Contact the office if not improving. Next Appt Details Provider Name:Yvette Dutta, 2021-04 02:00:00 PM, [address], , [place], [address] Insurance Providers Payer Name Payer Address Payer Phone Insured Name Patient Relati onship to Insured Coverage Start Date Coverage End Date [facility] COMMUNITY PLAN [facility] [address] [facility] [phone] EMMANUELLE ODELL self
--- OUTSIDE RECORDS SUMMARY | 2021-07-09 02:49 | CCD ---
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 Name Role Phone Monique Bangura Unavailable PROBLEMS Type Condition ICD9-CM Code SHI52-UK Code Onset Dates Condition S tatus W/U Status Risk SNOMED Code Notes Problem Fatigue R53.83 Active confirmed 22431661 Problem Major depressive disorder, single episode, unspecified F32.9 Active confirmed 82060415 Problem Vitamin D deficiency E55.9 Active confirmed 58698306 Problem Numbness R20.0 Active confirmed 15398446 Problem Irregular menstrual bleeding N92.6 Active confirme d 24603055 Problem Primary oligomenorrhea N91.3 Active confirmed 67247839 Problem Daytime somnolence R40.0 Active confirmed 1 60531132254 Problem Psoriasis of scalp L40.9 Active confirmed 2 94147639 Problem 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 Active confirmed 367696471 Problem Severe major depression F32.2 Active confirmed 674416282 Problem Primary insomnia F51.01 Active confirmed 397 2004 Problem Morbid obesity E66.01 Active confirmed 09887 6002 Problem Brain mass G93.89 Active confirmed 236877347 Problem Endometriosis N80.9 Active confirmed 152292 003 Problem Clostridium difficile colitis A04.72 Active confirm ed 844937868 Problem Anxiety F41.9 Active confirmed 17438774 Problem Encounter for gynecological examination with abnormal finding Z01.411 Active confirmed 831966148 Problem Hirsutism L68.0 Active confirmed 918971478 Problem PCOS (polycystic ovarian syndrome) E28.2 Activ e confirmed 468624073 Problem Migraine with aura and without status migrainosu s, not intractable G43.109 Active confirmed 6180788 Problem DWAYNE (obstructive sleep apnea) G47.33 Active confirm ed 95201975 ALLERGIES Allergen (clinical drug ingredient) Drug/Non Drug Allergy do cumented on EMR Reaction Allergy Type Onset Date Status dexamethasone Dexamethasone([facility] Code:[address]-62) Anaphylaxis Drug Allergy Active budesonide Pulmicort([facility] Code:[address]-22) Anaphylaxis Drug Allergy Active Wellbutrin Restlessness/agitation Drug Allergy Active paroxetine Paxil([facility] Code:[address]-94) chills/martha vering alternating with hot flashes Drug Allergy Active ENCOUNTERS from 1995 to 2021-06-21 Encounter Location Date Provider Diagnosis [facility] [address] [place] [address] Jun, Monique Wetilir IMMUNIZATIONS No Information SOCIAL HISTORY Tobacco Use: Social History Observation Description Date Details (start date - stop date) Never Smoker Sex Assigned At : Social History Observation Description Sex Assigned At Unknown Education: Question Answer Notes Level of Education: Finished High School currently at [employer] Audit Question Answer Notes Total Score: 0 Interpretation: Alcohol Education Shinto: Question Answer Notes Shinto No baptist beliefs that would impact health care. Sexual [...] qid Mar, N ot-Taking Drisdol 1.25 MG (28770 UT) 1 capsule Orally weekly for 30 [...] Information RESULTS No Results REASON FOR VISIT Stopped eating/lost weight MEDICAL (GENERAL) HISTORY Type Description Date Medical History Endometriosis - per Dr. Reyes [facility] Medical History Depression/Anxiety - Follows with Medical History PCOS ? 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 Stinson ([facility] Oncology Dr. Livingston Medical History Focal Epilepsy [...] Mupirocin 2 % 1 application to r [facility] fi nger Externally Three times a day for 5 day(s) Mar, Next Appt Details Provider Name:Monique Bangura, 2021-06 08:00:00 AM, [address], , [place], [id number], Provider Name:Keily Velasco, 2021-07-19 03:00:00 PM, [address], , [place], [address] Insurance Providers Payer Name Payer Address Payer Phone Insured Name Patient Relati onship to Insured Coverage Start Date Coverage End Date [employer] [facility] [address] [facility] [id number] EMMANUELLE ODELL self
--- OUTSIDE RECORDS SUMMARY | 2021-07-09 02:50 | CCD ---
Author Author [facility] Organization [facility] Address Unknown Phone Unavailable Care Team Providers Care Baby Doctor Name Role Phone ELSIE OLIVO MD Unavailable Unavailable ELSIE OLIVO MD Unavailable Unavailable ELSIE OLIVO MD Unavailable Unavailable ELSIE OLIVO MD Unavailable Unavailable FIDE, T MEAHGAN METAL MOLDER Unavailable Unavailable FIDE, T MEAHGAN METAL MOLDER Unavailable Unavailable FIDE, T MEAHGAN METAL MOLDER Unavailable Unavailable FIDE, T MEAHGAN METAL MOLDER Unavailable Unavailable FIDE, T MEAHGAN METAL MOLDER Unavailable Unavailable FIDE, T MEAHGAN METAL MOLDER Unavailable Unavailable FIDE, T MEAHGAN METAL MOLDER Unavailable Unavailable FIDE, T MEAHGAN METAL MOLDER Unavailable Unavailable FIDE, T MEAHGAN METAL MOLDER Unavailable Unavailable FIDE, T MEAHGAN METAL MOLDER Unavailable Unavailable FIDE, T MEAHGAN METAL MOLDER Unavailable Unavailable FIDE, T MEAHGAN METAL MOLDER Unavailable Unavailable FIDE, T MEAHGAN METAL MOLDER Unavailable Unavailable FIDE, T MEAHGAN METAL MOLDER Unavailable Unavailable FIDE, T MEAHGAN METAL MOLDER Unavailable Unavailable FIDE, T MEAHGAN METAL MOLDER Unavailable Unavailable FIDE, T MEAHGAN METAL MOLDER Unavailable Unavailable FIDE, T MEAHGAN METAL MOLDER Unavailable Unavailable FIDE, T MEAHGAN METAL MOLDER Unavailable Unavailable FIDE, T MEAHGAN METAL MOLDER Unavailable Unavailable FIDE, T MEAHGAN METAL MOLDER Unavailable Unavailable FIDE, T MEAHGAN METAL MOLDER Unavailable Unavailable FIDE, T MEAHGAN METAL MOLDER Unavailable Unavailable FIDE, T MEAHGAN METAL MOLDER Unavailable Unavailable FIDE, T MEAHGAN METAL MOLDER Unavailable Unavailable FIDE, T MEAHGAN METAL MOLDER Unavailable Unavailable FIDE, T MEAHGAN METAL MOLDER Unavailable Unavailable FIDE, T MEAHGAN METAL MOLDER Unavailable Unavailable FIDE, T MEAHGAN METAL MOLDER Unavailable Unavailable FIDE, T MEAHGAN METAL MOLDER Unavailable Unavailable FIDE, T MEAHGAN METAL MOLDER Unavailable Unavailable FIDE, T MEAHGAN METAL MOLDER Unavailable Unavailable FIDE, T MEAHGAN METAL MOLDER Unavailable Unavailable FIDE, T MEAHGAN METAL MOLDER Unavailable Unavailable FIDE, T MEAHGAN METAL MOLDER Unavailable Unavailable FIDE, T MEAHGAN METAL MOLDER Unavailable Unavailable FIDE, T MEAHGAN METAL MOLDER Unavailable Unavailable Andrew Zurita MD Unavailable Unavailable Andrew Zurita MD Unavailable Unavailable Andrew Zurita MD Unavailable Unavailable Andrew Zurita MD Unavailable Unavailable Andrew Zurita MD Unavailable Unavailable Andrew Zurita MD Unavailable Unavailable Andrew Zurita MD Unavailable Unavailable Andrew Zurita MD Unavailable Unavailable Andrew Zurita MD Unavailable Unavailable Andrew Zurita MD Unavailable Unavailable Andrew Zurita MD Unavailable Unavailable Andrew Zurita MD Unavailable Unavailable Andrew Zurita MD Unavailable Unavailable Andrew Zurita MD Unavailable Unavailable Andrew Zurita MD Unavailable Unavailable Andrew Zurita MD Unavailable Unavailable Andrew Zurita MD Unavailable Unavailable Andrew Zurita MD Unavailable Unavailable Andrew Zurita MD Unavailable Unavailable Andrew Zurita MD Unavailable Unavailable Andrew Zurita MD Unavailable Unavailable Andrew Zurita MD Unavailable Unavailable AliAndrew MD Unavailable Unavailable AliAndrew MD Unavailable Unavailable Ali, Andrew COPELAND Unavailable Unavailable Ali, Andrew MD Unavailable Unavailable Ali, Andrew MD Unavailable Unavailable Ali, Andrew MD Unavailable Unavailable Ali, Andrew MD Unavailable Unavailable Ali, Andrew MD Unavailable Unavailable Ali, Andrew MD Unavailable Unavailable Ali, Andrew MD Unavailable Unavailable Ali, Andrew MD Unavailable Unavailable Ali, Andrew MD Unavailable Unavailable Ali, Andrew MD Unavailable Unavailable Ali, Andrew MD Unavailable Unavailable Ali, Andrew MD Unavailable Unavailable Ali, Andrew MD Unavailable Unavailable Ali, Andrew MD Unavailable Unavailable Ali, Andrew MD Unavailable Unavailable Ali, Andrew MD Unavailable Unavailable Ali, Andrew MD Unavailable Unavailable Ali, Andrew MD Unavailable Unavailable Ali, Andrew MD Unavailable Unavailable Ali, Andrew MD Unavailable Unavailable Ali, Andrew MD Unavailable Unavailable Ali, Andrew MD Unavailable Unavailable Ali, Andrew MD Unavailable Unavailable Ali, Andrew MD Unavailable Unavailable Ali, Andrew MD Unavailable Unavailable Ali, Andrew MD Unavailable Unavailable Ali, Andrew MD Unavailable Unavailable Desiree CHADWICK MD Unavailable Unavailable Desiree CHADWICK MD Unavailable Unavailable Desiree CHADWICK MD Unavailable Unavailable Desiree CHADWICK MD Unavailable Unavailable Desiree CHADWICK MD Unavailable Unavailable Desiree CHADWICK MD Unavailable Unavailable Desiree CHADWICK MD Unavailable Unavailable Desiree CHADWICK MD Unavailable Unavailable Desiree CHADWICK MD Unavailable Unavailable Desiree CHADWICK MD Unavailable Unavailable Desiree CHADWICK MD Unavailable Unavailable Desiree CHADWICK MD Unavailable Unavailable Desiree CHADWICK MD Unavailable Unavailable Desiree CHADWICK MD Unavailable Unavailable Desiree CHADWICK MD Unavailable Unavailable Desiree CHADWICK MD Unavailable Unavailable Desiree CHADWICK MD Unavailable Unavailable Desiree CHADWICK MD Unavailable Unavailable Desiree CHADWICK MD Unavailable Unavailable Desiree CHADWICK MD Unavailable Unavailable Desiree CHADWICK MD Unavailable Unavailable Desiree CHADWICK MD Unavailable Unavailable Desiree CHADWICK MD Unavailable Unavailable Desiree CHADWCIK MD Unavailable Unavailable Desiree CHADWICK MD Unavailable Unavailable Desiree CHADWICK MD Unavailable Unavailable Desiree CHADWICK MD Unavailable Unavailable Desiree CHADWICK MD Unavailable Unavailable Desiree CHADWICK MD Unavailable Unavailable Desiree CHADWICK MD Unavailable Unavailable eDsiree CHADWICK MD Unavailable Unavailable Desiree CHADWICK MD Unavailable Unavailable Desiree CHADWICK MD Unavailable Unavailable Desiree CHADWICK MD Unavailable Unavailable Desiree CHADWICK MD Unavailable Unavailable Desiree CHADWICK MD Unavailable Unavailable Desiree CHADWICK MD Unavailable Unavailable Desiree CHADWICK MD Unavailable Unavailable Desiree CHADWICK MD Unavailable Unavailable Desiree CHADWICK MD Unavailable Unavailable Desiree CHADWICK MD Unavailable Unavailable CHIN, S HARRY MD Unavailable Unavailable CHIN, S HARRY MD Unavailable Unavailable CHIN, S HARRY MD Unavailable Unavailable CHIN, S HARRY MD Unavailable Unavailable CHIN, S HARRY MD Unavailable Unavailable CHIN, S HARRY MD Unavailable Unavailable CHIN, S HARRY MD Unavailable Unavailable CHIN, S HARRY MD Unavailable Unavailable CHIN, S HARRY MD Unavailable Unavailable CHIN, S HARRY MD Unavailable Unavailable CHIN, S HARRY MD Unavailable Unavailable CHIN, S HARRY MD Unavailable Unavailable CHIN, S HARRY MD Unavailable Unavailable CHIN, S HARRY MD Unavailable Unavailable CHIN, S HARRY MD Unavailable Unavailable CHIN, S HARRY MD Unavailable Unavailable CHIN, S HARRY MD Unavailable Unavailable CHIN, S HARRY MD Unavailable Unavailable CHIN, S HARRY MD Unavailable Unavailable CHIN, S HARRY MD Unavailable Unavailable CHIN, S HARRY MD Unavailable Unavailable CHIN, S HARRY MD Unavailable Unavailable CHIN, S HARRY MD Unavailable Unavailable CHIN, S HARRY MD Unavailable Unavailable CHIN, S HARRY MD Unavailable Unavailable CHIN, S HARRY MD Unavailable Unavailable CHIN, S HARRY MD Unavailable Unavailable CHIN, S HARRY MD Unavailable Unavailable CHIN, S HARRY MD Unavailable Unavailable CHIN, S HARRY MD Unavailable Unavailable CHIN, S HARRY MD Unavailable Unavailable CHIN, S HARRY MD Unavailable Unavailable CHIN, S HARRY MD Unavailable Unavailable CHIN, S HARRY MD Unavailable Unavailable CHIN, S HARRY MD Unavailable Unavailable CHIN, S HARRY MD Unavailable Unavailable CHIN, S HARRY MD Unavailable Unavailable CHIN, S HARRY MD Unavailable Unavailable CHIN, S HARRY MD Unavailable Unavailable CHIN, S HARRY MD Unavailable Unavailable CHIN, S HARRY MD Unavailable Unavailable CHIN, S HARRY MD Unavailable Unavailable CHIN, S HARRY MD Unavailable Unavailable CHIN, S HARRY MD Unavailable Unavailable CHIN, S HARRY MD Unavailable Unavailable [place], Emile Pérez MD Unavailable Unavailable Miki, Emile Pérez MD Unavailable Unavailable [place], Emile Pérez MD Unavailable Unavailable [place], Emile Pérez MD Unavailable Unavailable [place], Emile Pérez MD Unavailable Unavailable [place], Emile Pérez MD Unavailable Unavailable Miki, Emile Pérez MD Unavailable Unavailable Miki, Emile Pérez MD Unavailable Unavailable Miki, Emile Pérez MD Unavailable Unavailable Miki, Emile Pérez MD Unavailable Unavailable [place], Emile Pérez MD Unavailable Unavailable [place], Emile Pérez MD Unavailable Unavailable Miki, Emile Pérez MD Unavailable Unavailable [place], Emile Pérez MD Unavailable Unavailable Miki, Emile Pérez MD Unavailable Unavailable Miki, Emile Pérez MD Unavailable Unavailable [place], Emile Pérez MD Unavailable Unavailable Miki, Emile Pérez MD Unavailable Unavailable Miki, Emile Pérez MD Unavailable Unavailable Miki, Emile Pérez MD Unavailable Unavailable [place], A Beto MD Unavailable Unavailable Miki, A Beto MD Unavailable Unavailable Miki, A Beto MD Unavailable Unavailable [place], A Beto MD Unavailable Unavailable [place], A Beto MD Unavailable Unavailable [place], A Beto MD Unavailable Unavailable Miki, A Beto MD Unavailable Unavailable [place], A Beto MD Unavailable Unavailable Miki, A Beto MD Unavailable Unavailable Miki, A Beto MD Unavailable Unavailable [place], A Beto MD Unavailable Unavailable Miki, A Beto MD Unavailable Unavailable Miki, A Beto MD Unavailable Unavailable Miki, A Beto MD Unavailable Unavailable [place], A Beto MD Unavailable Unavailable [place], A Beto MD Unavailable Unavailable [place], A Beto MD Unavailable Unavailable Re-disclosure Warning The records that you are about to access may contain information from federally-assisted alcohol or drug abuse programs. If such information is present, then the following federally mandated warning applies: This information has been disclosed to you from records protected by federal confidentiality rules (42 CFR part 2). The federal rules prohibit you from making any further disclosure of this information unless further disclosure is expressly permitted by the written consent of the person to whom it pertains or as otherwise permitted by 42 CFR part 2. A general authorization for the release of medical or other information is NOT sufficient for this purpose. The Federal rules restrict any use of the information to criminally investigate or prosecute any alcohol or drug abuse patient.The records that you are about to access may contain highly sensitive health information, the redisclosure of which is protected by Article 27-F of the [facility] Public Health law. If you continue you may have access to information: Regarding HIV / AIDS; Provided by facilities licensed or operated by the [facility] Office of Mental Health; or Provided by the [facility] Office for People With Developmental Disabilities. If such information is present, then the following [facility] mandated warning applies: This information has been disclosed to you from confidential records which are protected by state law. State law prohibits you from making any further disclosure of this information without the specific written consent of the person to whom it pertains, or as otherwise permitted by law. Any unauthorized further disclosure in violation of state law may result in a fine or snf sentence or both. A general authorization for the release of medical or other information is NOT sufficient authorization for further disc losure. Family History Family Member Name Family Member Gender Family Member Status Date o f Status Description Data Source(s) Unknown Male Problem MEDENT ([facility]) Unknown Unknown Problem MEDENT ([facility]) Encounters Encounter Providers Location Date Indications Data Source(s ) [place] [address] [facility] [address] 06/19/2021 12:00:00 AM EDT eCW1 ([facility]) [place] [address] [facility] [place] [address] 06/07/2021 12:00:00 AM EDT eCW1 ([facility]) ([facility]) [facility] Scheduled Visit [address] [place] [phone] 04/16/2021 12:00:00 AM EDT eCW1 ([facility]) Unknown [address] [facility] [address] 04/16/2021 12:00:00 AM EDT eCW1 ([facility]) Outpatient [address] [facility] [id number] 04/13/2021 12:00:00 AM EDT eCW1 ([facility]) Unknown [address] [facility] [facility] [place] [address] 04/13/2021 12:00:00 AM EDT eCW1 ([facility]) Outpatient [address] [facility] [id number] 04/12/2021 12:00:00 AM EDT eCW1 ([facility]) Unknown [address] [facility] [facility] [place] [address] 04/04/2021 12:00:00 AM EDT eCW1 ([facility]) (TV_Virtual) Virtual [facility] Visit [address] [place] [phone] 04/03/2021 12:00:00 AM EDT eCW1 ([facility]) Unknown [address] [facility] [id number] 04/02/2021 12:00:00 AM EDT eCW1 ([facility]) [place] [address] [facility] [address] 04/02/2021 12:00:00 AM EDT eCW1 ([facility]) [place] [address] [facility] [address] 03/30/2021 12:00:00 AM EDT eCW1 ([facility]) [place] [address] [facility] [address] 03/30/2021 12:00:00 AM EDT eCW1 ([facility]) [place] [address] [facility] [address] 03/30/2021 12:00:00 AM EDT eCW1 ([facility]) [place] [address] [facility] [address] 03/23/2021 12:00:00 AM EDT eCW1 ([facility]) [place] [address] [facility] [address] 03/23/2021 12:00:00 AM EDT eCW1 ([facility]) Unknown [address] [facility] [address] 03/22/2021 12:00:00 AM EDT eCW1 ([facility]) [place] [address] [facility] [address] 03/21/2021 12:00:00 AM EDT eCW1 ([facility]) [place] [address] [facility] [address] 03/08/2021 12:00:00 AM EDT eCW1 [facility] ([facility]) [facility] [address] [place] [address] 02/14/2021 12:00:00 AM EDT eCW1 ([facility]) Unknown [address] [facility] [address] 02/13/2021 12:00:00 AM EDT [facility]CW1 [facility] [place] [address] [facility] [address] 01/24/2021 12:00:00 AM EDT eCW1 ([facility]) Outpatient Attender: HARRY CHADWICK MD 01/10/2021 12:00:00 AM [facility] Outpatient Referrer: ELSIE OLIVO MD 01/10/2021 12:0 0:00 AM [facility] Unknown [address] [facility] [address] 01/08/2021 12:00:00 AM EDT eCW1 ([facility]) ([facility]) [facility] Scheduled Visit [address] [place] [address] 01/04/2021 12:00:00 AM EDT eCW1 ([facility]) Outpatient Attender: Beto Livingston MD 12/21/2020 12:00:0 0 AM [facility] Outpatient [address] [facility] [address] 12/07/2020 12:00:00 AM EDT eCW1 ([facility]) ([facility]) [facility] Scheduled Visit [address] [place] [address] 12/07/2020 12:00:00 AM EDT eCW1 ([facility]) Outpatient Attender: HARRY CHADWICK MD 11/15/2020 12:00:00 AM [facility] Outpatient Attender: HARRY CHADWICK MD 11/08/2020 12:00:00 AM [facility] Unknown [address] [facility] [address] 11/07/2020 12:00:00 AM EDT eCW1 ([facility]) Unknown [address] [facility] [place] [address] 10/20/2020 12:00:00 AM EST eCW1 ([facility]) (TV_Virtual) [facility] Visit [address] [place] [address] 10/16/2020 12:00:00 AM EST eCW1 ([facility]) Unknown [address] [facility] [place] [address] 10/12/2020 12:00:00 AM EST eCW1 ([facility]) Outpatient Attender: HARRY CHADWICK MD 10/11/2020 12:00:[address] [facility] Outpatient Referrer: ELSIE OLIVO MD 10/11/2020 12:0 0:00 AM [facility] Outpatient Referrer: ELSIE OLIVO MD 10/04/2020 12:0 0:00 AM [facility] (TV_Virtual) [facility] Visit [address] [place] [phone] 09/26/2020 12:00:00 AM EST eCW1 ([facility]) Outpatient Referrer: ELSIE OLIVO MD 09/21/2020 12:0 0:00 AM [facility] (TV_Virtual) [facility] Visit [address] [place] [phone] 09/07/2020 12:00:00 AM EST eCW1 ([facility]) Unknown [address] [facility] [address] 09/05/2020 12:00:00 AM EST eCW1 ([facility]) Unknown [address] [facility] [place] [address] 08/23/2020 12:00:00 AM EST eCW1 ([facility]) (TV_Virtual) [facility] Visit [address] [place] [address] 08/07/2020 12:00:00 AM EST eCW1 ([facility]) Outpatient Attender: Beto Livingston MDReferrer: HARRY ROGER MD [id number] 08/03/2020 12:00:00 AM EST - 08/03/2020 04:20:42 PM EST Benign neoplasm of meninges, unspecified [facility] Benign neoplasm of meninges, unspecified Outpatient Attender: Andrew Zurita MD Main office - [place] 06/28/2020 11:00:00 AM EST MEDENT ([facility] ) Outpatient Attender: HARRY CHADWICK MD [id number] 06/28/2020 12:00:00 AM [facility] ([facility]) [facility] Scheduled Visit [address] [place] [address] 06/26/2020 12:00:00 AM EST eCW1 ([facility]) Outpatient Referrer: HERNANDO ELIZALDE NP 06/23/2020 12:00:0 0 AM [facility] ([facility]) [facility] Scheduled Visit [address] [place] [address] 06/14/2020 12:00:00 AM EDT eCW1 ([facility]) Unknown [address] [facility] [address] 06/06/2020 12:00:00 AM EDT eCW1 ([facility]) Outpatient [address] [facility] [address] 06/02/2020 12:00:00 AM EDT eCW1 ([facility]) Unknown [address] [facility] [address] 05/26/2020 12:00:00 AM EDT eCW1 ([facility]) [facility] [address] [place] [address] 05/12/2020 12:00:00 AM EDT eCW1 ([facility]) Office Visit Attender: Andrew Zurita MD Main office - [place] 05/09/2020 12:00:00 PM EDT MEDENT ([facility]) Outpatient Attender: Beto Livingston MD [facility][1] 10/27/2019 1 2:00:00 AM EDT Benign neoplasm of meninges, unspecified [facility] Benign neoplasm of meninges, unspecified Medications Medication Brand Name Start Date Product Form Dose Route Admi nistrative Instructions Pharmacy Instructions Status Indications Reaction Description Data Source(s) Mupirocin 0.02 MG/MG Topical Ointment Mupirocin 2 % Mupiroci n 2 % 04/13/2021 12:00:00 AM EDT active Mupiroci n 2 % eCW1 ([facility]) Mupirocin 0.02 MG/MG Topical Ointment Mupirocin 2 % Mupiroci n 2 % 04/13/2021 12:00:00 AM EDT active Mupiroci n 2 % eCW1 ([facility]) Mupirocin 0.02 MG/MG Topical Ointment Mupirocin 2 % Mupiroci n 2 % 04/13/2021 12:00:00 AM EDT active Mupiroci n 2 % eCW1 ([facility]) Mupirocin 0.02 MG/MG Topical Ointment Mupirocin 2 % Mupiroci n 2 % 04/13/2021 12:00:00 AM EDT active Mupiroci n 2 % eCW1 ([facility]) Mupirocin 0.02 MG/MG Topical Ointment Mupirocin 2 % Mupiroci n 2 % 04/13/2021 12:00:00 AM EDT active Mupiroci n 2 % eCW1 ([facility]) Mupirocin 0.02 MG/MG Topical Ointment Mupirocin 2 % Mupiroci n 2 % 04/13/2021 12:00:00 AM EDT active Mupiroci n 2 % eCW1 ([facility]) Mupirocin 0.02 MG/MG Topical Ointment Mupirocin 2 % Mupiroci n 2 % 04/13/2021 12:00:00 AM EDT active Mupiroci n 2 % eCW1 ([facility]) Vancomycin 250 MG Oral Capsule Vancomycin HCl 250 MG Vancomy mauri HCl 250 MG 03/30/2021 12:00:00 AM EDT active Vancomycin HCl 250 MG eCW1 ([facility]) Firvanq 50 MG/ML Firvanq 50 MG/ML 03/30/2021 12:00:00 AM EDT 10. 0 {ml} active Firvanq 50 MG/ML eCW1 ([facility]) Bacid - Bacid - 03/30/2021 12:00:00 AM EDT active Bacid - eCW1 ([facility]) Bacid - Bacid - 03/30/2021 12:00:00 AM EDT active Bacid - eCW1 ([facility]) fidaxomicin 200 MG Oral Tablet [Dificid] Dificid 200 MG Difi wali 200 MG 03/30/2021 12:00:00 AM EDT 1.0 {tablet} active Dificid 200 MG eCW1 ([facility]) Vancomycin 250 MG Oral Capsule Vancomycin HCl 250 MG Vancomy mauri HCl 250 MG 03/30/2021 12:00:00 AM EDT suspended Vancomycin HCl 250 MG eCW1 ([facility]) fidaxomicin 200 MG Oral Tablet [Dificid] Dificid 200 MG Difi wali 200 MG 03/30/2021 12:00:00 AM EDT 1.0 {tablet} active Dificid 200 MG eCW1 ([facility]) Firvanq 50 MG/ML Firvanq 50 MG/ML 03/30/2021 12:00:00 AM EDT 10. 0 {ml} active Firvanq 50 MG/ML eCW1 ([facility]) Vancomycin 250 MG Oral Capsule Vancomycin HCl 250 MG Vancomy mauri HCl 250 MG 03/30/2021 12:00:00 AM EDT suspended Vancomycin HCl 250 MG eCW1 ([facility]) Firvanq 50 MG/ML Firvanq 50 MG/ML 03/30/2021 12:00:00 AM EDT 10. 0 {ml} active Firvanq 50 MG/ML eCW1 ([facility]) Vancomycin 250 MG Oral Capsule Vancomycin HCl 250 MG Vancomy mauri HCl 250 MG 03/30/2021 12:00:00 AM EDT suspended Vancomycin HCl 250 MG eCW1 ([facility]) Vancomycin 250 MG Oral Capsule Vancomycin HCl 250 MG Vancomy mauri HCl 250 MG 03/30/2021 12:00:00 AM EDT active Vancomycin HCl 250 MG eCW1 ([facility]) Firvanq 50 MG/ML Firvanq 50 MG/ML 03/30/2021 12:00:00 AM EDT 10. 0 {ml} suspended Firvanq 50 MG/ML eCW1 ([facility]) Bacid - Bacid - 03/30/2021 12:00:00 AM EDT active Bacid - eCW1 ([facility]) Firvanq 50 MG/ML Firvanq 50 MG/ML 03/30/2021 12:00:00 AM EDT 10. 0 {ml} active Firvanq 50 MG/ML eCW1 ([facility]) fidaxomicin 200 MG Oral Tablet [Dificid] Dificid 200 MG Difi wali 200 MG 03/30/2021 12:00:00 AM EDT 1.0 {tablet} active Dificid 200 MG eCW1 ([facility]) Vancomycin 250 MG Oral Capsule Vancomycin HCl 250 MG Vancomy mauri HCl 250 MG 03/30/2021 12:00:00 AM EDT active Vancomycin HCl 250 MG eCW1 ([facility]) Vancomycin 250 MG Oral Capsule Vancomycin HCl 250 MG Vancomy mauri HCl 250 MG 03/30/2021 12:00:00 AM EDT active Vancomycin HCl 250 MG eCW1 ([facility]) fidaxomicin 200 MG Oral Tablet [Dificid] Dificid 200 MG Difi wali 200 MG 03/30/2021 12:00:00 AM EDT 1.0 {tablet} active Dificid 200 MG eCW1 ([facility]) fidaxomicin 200 MG Oral Tablet [Dificid] Dificid 200 MG Difi wali 200 MG 03/30/2021 12:00:00 AM EDT 1.0 {tablet} active Dificid 200 MG eCW1 (Formerly [facility]) Bacid - Bacid - 03/30/2021 12:00:00 AM EDT active Bacid - eCW1 (Formerly [facility]) fidaxomicin 200 MG Oral Tablet [Dificid] Dificid 200 MG Difi wali 200 MG 03/30/2021 12:00:00 AM EDT 1.0 {tablet} active Dificid 200 MG eCW1 (Formerly [facility]) Bacid - Bacid - 03/30/2021 12:00:00 AM EDT active Bacid - eCW1 (Formerly [facility]) Bacid - Bacid - 03/30/2021 12:00:00 AM EDT active Bacid - eCW1 (Formerly [facility]) fidaxomicin 200 MG Oral Tablet [Dificid] Dificid 200 MG Difi wali 200 MG 03/30/2021 12:00:00 AM EDT 1.0 {tablet} active Dificid 200 MG eCW1 (Formerly [facility]) fidaxomicin 200 MG Oral Tablet [Dificid] Dificid 200 MG Difi wali 200 MG 03/30/2021 12:00:00 AM EDT 1.0 {tablet} active Dificid 200 MG eCW1 (Formerly [facility]) fidaxomicin 200 MG Oral Tablet [Dificid] Dificid 200 MG Difi wali 200 MG 03/30/2021 12:00:00 AM EDT 1.0 {tablet} active Dificid 200 MG eCW1 (Formerly [facility]) Firvanq 50 MG/ML Firvanq 50 MG/ML 03/30/2021 12:00:00 AM EDT 10. 0 {ml} suspended Firvanq 50 MG/ML eCW1 (Formerly [facility]) fidaxomicin 200 MG Oral Tablet [Dificid] Dificid 200 MG Difi wali 200 MG 03/30/2021 12:00:00 AM EDT 1.0 {tablet} active Dificid 200 MG eCW1 (Formerly [facility]) Bacid - Bacid - 03/30/2021 12:00:00 AM EDT active Bacid - eCW1 (Formerly [facility]) Bacid - Bacid - 03/30/2021 12:00:00 AM EDT active Bacid - eCW1 (Formerly [facility]) Firvanq 50 MG/ML Firvanq 50 MG/ML 03/30/2021 12:00:00 AM EDT 10. 0 {ml} suspended Firvanq 50 MG/ML eCW1 (Formerly [facility]) Firvanq 50 MG/ML Firvanq 50 MG/ML 03/30/2021 12:00:00 AM EDT 10. 0 {ml} active Firvanq 50 MG/ML eCW1 (Formerly [facility]) Firvanq 50 MG/ML Firvanq 50 MG/ML 03/30/2021 12:00:00 AM EDT 10. 0 {ml} active Firvanq 50 MG/ML eCW1 (Formerly [facility]) Bacid - Bacid - 03/30/2021 12:00:00 AM EDT active Bacid - eCW1 (Formerly [facility]) Bacid - Bacid - 03/30/2021 12:00:00 AM EDT active Bacid - eCW1 (Formerly [facility]) fidaxomicin 200 MG Oral Tablet [Dificid] Dificid 200 MG Difi wali 200 MG 03/30/2021 12:00:00 AM EDT 1.0 {tablet} active Dificid 200 MG eCW1 (Formerly [facility]) Bacid - Bacid - 03/30/2021 12:00:00 AM EDT active Bacid - eCW1 (Formerly [facility]) Firvanq 50 MG/ML Firvanq 50 MG/ML 03/30/2021 12:00:00 AM EDT 10. 0 {ml} suspended Firvanq 50 MG/ML eCW1 (Formerly [facility]) Vancomycin 250 MG Oral Capsule Vancomycin HCl 250 MG Vancomy mauri HCl 250 MG 03/30/2021 12:00:00 AM EDT suspended Vancomycin HCl 250 MG eCW1 (Formerly [facility]) Firvanq 50 MG/ML Firvanq 50 MG/ML 03/30/2021 12:00:00 AM EDT 10. 0 {ml} suspended Firvanq 50 MG/ML eCW1 (Formerly [facility]) Firvanq 50 MG/ML Firvanq 50 MG/ML 03/30/2021 12:00:00 AM EDT 10. 0 {ml} suspended Firvanq 50 MG/ML eCW1 (Formerly [facility]) Firvanq 50 MG/ML Firvanq 50 MG/ML 03/30/2021 12:00:00 AM EDT 10. 0 {ml} suspended Firvanq 50 MG/ML eCW1 (Formerly [facility]) Vancomycin 250 MG Oral Capsule Vancomycin HCl 250 MG Vancomy mauri HCl 250 MG 03/30/2021 12:00:00 AM EDT active Vancomycin HCl 250 MG eCW1 (Formerly [facility]) Bacid - Bacid - 03/30/2021 12:00:00 AM EDT active Bacid - eCW1 (Formerly [facility]) Bacid - Bacid - 03/30/2021 12:00:00 AM EDT active Bacid - eCW1 (Formerly [facility]) fidaxomicin 200 MG Oral Tablet [Dificid] Dificid 200 MG Difi wali 200 MG 03/30/2021 12:00:00 AM EDT 1.0 {tablet} active Dificid 200 MG eCW1 (Formerly [facility]) Vancomycin 250 MG Oral Capsule Vancomycin HCl 250 MG Vancomy mauri HCl 250 MG 03/30/2021 12:00:00 AM EDT suspended Vancomycin HCl 250 MG eCW1 (Formerly [facility]) Vancomycin 250 MG Oral Capsule Vancomycin HCl 250 MG Vancomy mauri HCl 250 MG 03/30/2021 12:00:00 AM EDT active Vancomycin HCl 250 MG eCW1 (Formerly [facility]) Vancomycin 250 MG Oral Capsule Vancomycin HCl 250 MG Vancomy mauri HCl 250 MG 03/30/2021 12:00:00 AM EDT suspended Vancomycin HCl 250 MG eCW1 (Formerly [facility]) Vancomycin 250 MG Oral Capsule Vancomycin HCl 250 MG Vancomy mauri HCl 250 MG 03/30/2021 12:00:00 AM EDT active Vancomycin HCl 250 MG eCW1 (Formerly [facility]) Bacid - Bacid - 03/30/2021 12:00:00 AM EDT active Bacid - eCW1 (Formerly [facility]) Vancomycin 250 MG Oral Capsule Vancomycin HCl 250 MG Vancomy mauri HCl 250 MG 03/30/2021 12:00:00 AM EDT suspended Vancomycin HCl 250 MG eCW1 (Formerly [facility]) fidaxomicin 200 MG Oral Tablet [Dificid] Dificid 200 MG Difi wali 200 MG 03/30/2021 12:00:00 AM EDT 1.0 {tablet} active Dificid 200 MG eCW1 (Formerly [facility]) Firvanq 50 MG/ML Firvanq 50 MG/ML 03/30/2021 12:00:00 AM EDT 10. 0 {ml} active Firvanq 50 MG/ML eCW1 (Formerly [facility]) fidaxomicin 200 MG Oral Tablet [Dificid] Dificid 200 MG Difi wali 200 MG 03/30/2021 12:00:00 AM EDT 1.0 {tablet} active Dificid 200 MG eCW1 (Formerly [facility]) Firvanq 25 MG/ML Firvanq 25 MG/ML 03/23/2021 12:00:00 AM EDT 5.0 {ml} active Firvanq 25 MG/ML eCW1 (Formerly [facility]) Firvanq 25 MG/ML Firvanq 25 MG/ML 03/23/2021 12:00:00 AM EDT 5.0 {ml} active Firvanq 25 MG/ML eCW1 (Formerly [facility]) Firvanq 25 MG/ML Firvanq 25 MG/ML 03/23/2021 12:00:00 AM EDT 5.0 {ml} suspended Firvanq 25 MG/ML eCW1 (Formerly [facility]) Firvanq 25 MG/ML Firvanq 25 MG/ML 03/23/2021 12:00:00 AM EDT 5.0 {ml} active Firvanq 25 MG/ML eCW1 (Formerly [facility]) Firvanq 25 MG/ML Firvanq 25 MG/ML 03/23/2021 12:00:00 AM EDT 5.0 {ml} active Firvanq 25 MG/ML eCW1 (Formerly [facility]) Firvanq 25 MG/ML Firvanq 25 MG/ML 03/23/2021 12:00:00 AM EDT 5.0 {ml} active Firvanq 25 MG/ML eCW1 (Formerly [facility]) Firvanq 25 MG/ML Firvanq 25 MG/ML 03/23/2021 12:00:00 AM EDT 5.0 {ml} suspended Firvanq 25 MG/ML eCW1 (Formerly [facility]) Firvanq 25 MG/ML Firvanq 25 MG/ML 03/23/2021 12:00:00 AM EDT 5.0 {ml} suspended Firvanq 25 MG/ML eCW1 (Formerly [facility]) Firvanq 25 MG/ML Firvanq 25 MG/ML 03/23/2021 12:00:00 AM EDT 5.0 {ml} active Firvanq 25 MG/ML eCW1 (Formerly [facility]) Firvanq 25 MG/ML Firvanq 25 MG/ML 03/23/2021 12:00:00 AM EDT 5.0 {ml} active Firvanq 25 MG/ML eCW1 (Formerly [facility]) Firvanq 25 MG/ML Firvanq 25 MG/ML 03/23/2021 12:00:00 AM EDT 5.0 {ml} active Firvanq 25 MG/ML eCW1 (Formerly [facility]) Firvanq 25 MG/ML Firvanq 25 MG/ML 03/23/2021 12:00:00 AM EDT 5.0 {ml} suspended Firvanq 25 MG/ML eCW1 (Formerly [facility]) Firvanq 25 MG/ML Firvanq 25 MG/ML 03/23/2021 12:00:00 AM EDT 5.0 {ml} suspended Firvanq 25 MG/ML eCW1 (Formerly [facility]) Firvanq 25 MG/ML Firvanq 25 MG/ML 03/23/2021 12:00:00 AM EDT 5.0 {ml} suspended Firvanq 25 MG/ML eCW1 (Formerly [facility]) Firvanq 25 MG/ML Firvanq 25 MG/ML 03/23/2021 12:00:00 AM EDT 5.0 {ml} active Firvanq 25 MG/ML eCW1 (Formerly [facility]) Firvanq 25 MG/ML Firvanq 25 MG/ML 03/23/2021 12:00:00 AM EDT 5.0 {ml} suspended Firvanq 25 MG/ML eCW1 (Formerly [facility]) Firvanq 25 MG/ML Firvanq 25 MG/ML 03/23/2021 12:00:00 AM EDT 5.0 {ml} active Firvanq 25 MG/ML eCW1 (Formerly [facility]) Firvanq 25 MG/ML Firvanq 25 MG/ML 03/23/2021 12:00:00 AM EDT 5.0 {ml} active Firvanq 25 MG/ML eCW1 (Formerly [facility]) Omeprazole 40 MG Delayed Release Oral Capsule Omeprazole 40 MG 03/08/2021 12:00:00 AM EDT suspended Omepr azole 40 MG eCW1 (Formerly [facility]) Omeprazole 40 MG Delayed Release Oral Capsule Omeprazole 40 MG 03/08/2021 12:00:00 AM EDT suspended Omepr azole 40 MG eCW1 (Formerly [facility]) Omeprazole 40 MG Delayed Release Oral Capsule Omeprazole 40 MG 03/08/2021 12:00:00 AM EDT suspended Omepr azole 40 MG eCW1 (Formerly [facility]) Omeprazole 40 MG Delayed Release Oral Capsule Omeprazole 40 MG 03/08/2021 12:00:00 AM EDT active Omeprazo le 40 MG eCW1 (Formerly [facility]) Omeprazole 40 MG Delayed Release Oral Capsule Omeprazole 40 MG 03/08/2021 12:00:00 AM EDT suspended Omepr azole 40 MG eCW1 (Formerly [facility]) Omeprazole 40 MG Delayed Release Oral Capsule Omeprazole 40 MG 03/08/2021 12:00:00 AM EDT suspended Omepr azole 40 MG eCW1 (Formerly [facility]) Omeprazole 40 MG Delayed Release Oral Capsule Omeprazole 40 MG 03/08/2021 12:00:00 AM EDT suspended Omepr azole 40 MG eCW1 (Formerly [facility]) Omeprazole 40 MG Delayed Release Oral Capsule Omeprazole 40 MG 03/08/2021 12:00:00 AM EDT suspended Omepr azole 40 MG eCW1 (Formerly [facility]) Omeprazole 40 MG Delayed Release Oral Capsule Omeprazole 40 MG 03/08/2021 12:00:00 AM EDT suspended Omepr azole 40 MG eCW1 (Formerly [facility]) Omeprazole 40 MG Delayed Release Oral Capsule Omeprazole 40 MG 03/08/2021 12:00:00 AM EDT suspended Omepr azole 40 MG eCW1 (Formerly [facility]) Omeprazole 40 MG Delayed Release Oral Capsule Omeprazole 40 MG 03/08/2021 12:00:00 AM EDT suspended Omepr azole 40 MG eCW1 (Formerly [facility]) Omeprazole 40 MG Delayed Release Oral Capsule Omeprazole 40 MG 03/08/2021 12:00:00 AM EDT suspended Omepr azole 40 MG eCW1 (Formerly [facility]) Omeprazole 40 MG Delayed Release Oral Capsule Omeprazole 40 MG 03/08/2021 12:00:00 AM EDT suspended Omepr azole 40 MG eCW1 (Formerly [facility]) Omeprazole 40 MG Delayed Release Oral Capsule Omeprazole 40 MG 03/08/2021 12:00:00 AM EDT suspended Omepr azole 40 MG eCW1 (Formerly [facility]) Omeprazole 40 MG Delayed Release Oral Capsule Omeprazole 40 MG 03/08/2021 12:00:00 AM EDT suspended Omepr azole 40 MG eCW1 (Formerly [facility]) Omeprazole 40 MG Delayed Release Oral Capsule Omeprazole 40 MG 03/08/2021 12:00:00 AM EDT suspended Omepr azole 40 MG eCW1 (Formerly [facility]) Omeprazole 40 MG Delayed Release Oral Capsule Omeprazole 40 MG 03/08/2021 12:00:00 AM EDT suspended Omepr azole 40 MG eCW1 (Formerly [facility]) Omeprazole 40 MG Delayed Release Oral Capsule Omeprazole 40 MG 03/08/2021 12:00:00 AM EDT suspended Omepr azole 40 MG eCW1 (Formerly [facility]) Omeprazole 40 MG Delayed Release Oral Capsule Omeprazole 40 MG 03/08/2021 12:00:00 AM EDT suspended Omepr azole 40 MG eCW1 (Formerly [facility]) Ergocalciferol 90555 UNT Oral Capsule [Drisdol] Drisdo l 1.25 MG (28454 UT) Drisdol 1.25 MG (55777 UT) 12/26/2020 12:00:00 AM EDT 1.0 {capsule} suspended Drisdol 1.25 MG (42534 UT) eCW1 (Formerly [facility]) Ergocalciferol 06374 UNT Oral Capsule [Drisdol] Drisdo l 1.25 MG (36013 UT) Drisdol 1.25 MG (11139 UT) 12/26/2020 12:00:00 AM EDT 1.0 {capsule} suspended Drisdol 1.25 MG (12239 UT) [facility] (Formerly [facility]) Ergocalciferol 44256 UNT Oral Capsule [Drisdol] Drisdo l 1.25 MG (61429 UT) Drisdol 1.25 MG (22410 UT) 12/26/2020 12:00:00 AM EDT 1.0 {capsule} suspended Drisdol 1.25 MG (76677 UT) [facility] (Formerly [facility]) Ergocalciferol 49167 UNT Oral Capsule [Drisdol] Drisdo l 1.25 MG (33348 UT) Drisdol 1.25 MG (49609 UT) 12/26/2020 12:00:00 AM EDT 1.0 {capsule} suspended Drisdol 1.25 MG (40544 UT) [facility] (Formerly [facility]) Ergocalciferol 07263 UNT Oral Capsule [Drisdol] Drisdo l 1.25 MG (01591 UT) Drisdol 1.25 MG (71473 UT) 12/26/2020 12:00:00 AM EDT 1.0 {capsule} suspended Drisdol 1.25 MG (07857 UT) [facility] (Formerly [facility]) Ergocalciferol 55941 UNT Oral Capsule [Drisdol] Drisdo l 1.25 MG (14714 UT) Drisdol 1.25 MG (59864 UT) 12/26/2020 12:00:00 AM EDT 1.0 {capsule} suspended Drisdol 1.25 MG (54309 UT) eC (Formerly [facility]) Ergocalciferol 03142 UNT Oral Capsule [Drisdol] Drisdo l 1.25 MG (83837 UT) Drisdol 1.25 MG (68058 UT) 12/26/2020 12:00:00 AM EDT 1.0 {capsule} active Drisdol 1.25 MG (07309 UT) [facility] (Formerly [facility]) Ergocalciferol 38836 UNT Oral Capsule [Drisdol] Drisdo l 1.25 MG (92385 UT) Drisdol 1.25 MG (94923 UT) 12/26/2020 12:00:00 AM EDT 1.0 {capsule} suspended Drisdol 1.25 MG (22126 UT) [facility] (Formerly [facility]) Ergocalciferol 16323 UNT Oral Capsule [Drisdol] Drisdo l 1.25 MG (62646 UT) Drisdol 1.25 MG (15112 UT) 12/26/2020 12:00:00 AM EDT 1.0 {capsule} active [facility] (Formerly [facility]) Ergocalciferol 60741 UNT Oral Capsule [Drisdol] Drisdo l 1.25 MG (61119 UT) Drisdol 1.25 MG (91214 UT) 12/26/2020 12:00:00 AM EDT 1.0 {capsule} suspended Drisdol 1.25 MG (83710 UT) [facility] (Formerly [facility]) Ergocalciferol 48551 UNT Oral Capsule [Drisdol] Drisdo l 1.25 MG (02551 UT) Drisdol 1.25 MG (47912 UT) 12/26/2020 12:00:00 AM EDT 1.0 {capsule} active Drisdol 1.25 MG (99965 UT) [facility] (Formerly [facility]) Ergocalciferol 79399 UNT Oral Capsule [Drisdol] Drisdo l 1.25 MG (04450 UT) Drisdol 1.25 MG (66713 UT) 12/26/2020 12:00:00 AM EDT 1.0 {capsule} suspended Drisdol 1.25 MG (60375 UT) [facility] (Formerly [facility]) Ergocalciferol 37088 UNT Oral Capsule [Drisdol] Drisdo l 1.25 MG (75755 UT) Drisdol 1.25 MG (39988 UT) 12/26/2020 12:00:00 AM EDT 1.0 {capsule} suspended Drisdol 1.25 MG (39011 UT) [facility] (Formerly [facility]) Ergocalciferol 16627 UNT Oral Capsule [Drisdol] Drisdo l 1.25 MG (53157 UT) Drisdol 1.25 MG (03188 UT) 12/26/2020 12:00:00 AM EDT 1.0 {capsule} suspended Drisdol 1.25 MG (51612 UT) [facility] (Formerly [facility]) Ergocalciferol 87951 UNT Oral Capsule [Drisdol] Drisdo l 1.25 MG (56325 UT) Drisdol 1.25 MG (63408 UT) 12/26/2020 12:00:00 AM EDT 1.0 {capsule} suspended Drisdol 1.25 MG (11174 UT) [facility] (Formerly [facility]) Ergocalciferol 51785 UNT Oral Capsule [Drisdol] Drisdo l 1.25 MG (12342 UT) Drisdol 1.25 MG (79809 UT) 12/26/2020 12:00:00 AM EDT 1.0 {capsule} suspended Drisdol 1.25 MG (10825 UT) [facility] (Formerly [facility]) Ergocalciferol 40211 UNT Oral Capsule [Drisdol] Drisdo l 1.25 MG (74258 UT) Drisdol 1.25 MG (51172 UT) 12/26/2020 12:00:00 AM EDT 1.0 {capsule} suspended Drisdol 1.25 MG (72333 UT) [facility] (Formerly [facility]) Ergocalciferol 88999 UNT Oral Capsule [Drisdol] Drisdo l 1.25 MG (80968 UT) Drisdol 1.25 MG (02141 UT) 12/26/2020 12:00:00 AM EDT 1.0 {capsule} active Drisdol 1.25 MG (58892 UT) [facility] (Formerly [facility]) Ergocalciferol 08068 UNT Oral Capsule [Drisdol] Drisdo l 1.25 MG (69708 UT) Drisdol 1.25 MG (38775 UT) 12/26/2020 12:00:00 AM EDT 1.0 {capsule} suspended Drisdol 1.25 MG (94505 UT) [facility] (Formerly [facility]) Ergocalciferol 96908 UNT Oral Capsule [Drisdol] Drisdo l 1.25 MG (20879 UT) Drisdol 1.25 MG (46232 UT) 12/26/2020 12:00:00 AM EDT 1.0 {capsule} suspended Drisdol 1.25 MG (77393 UT) eCW1 (Formerly [facility]) Ergocalciferol 48708 UNT Oral Capsule [Drisdol] Drisdo l 1.25 MG (92813 UT) Drisdol 1.25 MG (97960 UT) 12/26/2020 12:00:00 AM EDT 1.0 {capsule} suspended Drisdol 1.25 MG (17907 UT) [facility]C (Formerly [facility]) Ergocalciferol 38119 UNT Oral Capsule [Drisdol] Drisdo l 1.25 MG (10471 UT) Drisdol 1.25 MG (59962 UT) 12/26/2020 12:00:00 AM EDT 1.0 {capsule} active Drisdol 1.25 MG (05148 UT) [facility]C (Formerly [facility]) Ergocalciferol 59730 UNT Oral Capsule [Drisdol] Drisdo l 1.25 MG (16389 UT) Drisdol 1.25 MG (00723 UT) 12/26/2020 12:00:00 AM EDT 1.0 {capsule} active Drisdol 1.25 MG (50830 UT) [facility]C ([facility]ly [facility]) Ergocalciferol 47885 UNT Oral Capsule [Drisdol] Drisdo l 1.25 MG (89711 UT) Drisdol 1.25 MG (16382 UT) 12/26/2020 12:00:00 AM EDT 1.0 {capsule} suspended Drisdol 1.25 MG (02431 UT) [facility] (Formerly [facility]) Divalproex Sodium 500 MG Delayed Release Oral Tablet Divalpr oex Sodium 06/28/2020 12:00:00 AM EST ORAL active [facility] ([facility]) duloxetine 60 MG Delayed Release Oral Ca psule DULoxetine HCl 60 MG Oral Capsule Delayed Release Particles (CYMBALTA) DULoxetine HCl 60 MG Oral Capsule Delaye d Release Particles (CYMBALTA) 06/26/2020 12:00:00 AM EST 60 mg Oral active Take 60 mg by mouth daily 60mg in AM and 10 mg in [facility] Ondansetron 4 MG Disintegrating Oral Tablet Ondansetron 05/19/2020 12:00:00 AM EDT active [facility] ([facility]) Alprazolam 0.5 MG Oral Tablet Alprazolam 05/19/2020 12:00:00 AM EDT ORAL active [facility] ([facility]) Divalproex Sodium 250 MG Delayed Release Oral Tablet Divalpr oex Sodium 01/21/2020 12:00:00 AM EDT ORAL completed [facility] ([facility] ) Insurance Providers Payer name Policy type / Coverage type Policy ID Covered constitution party ID Covered constitution party's relationship to [place] Policy [place] Plan Information Medicaid Dental S [id number] [facility] COMM[facility]ITY PLAN [facility] [id number] SP [id number] [facility] I [id number] Self [id number] [facility] I [id number] Self [id number] [facility] COMMUNITY PLAN XIX [id number] 18 [id number] [facility] [id number] ANSI-Medicaid [id number] ANSI-Medicaid [id number] ANSI-Medicaid [id number] ANSI-Medicaid [id number] ANSI-Medicaid [id number] [facility] [id number] Self [id number] [facility] Commercial [id number] Self [id number] ANSI-Medicaid [id number] ANSI-Medicaid [id number] ANSI-Medicaid [id number] ANSI-Medicaid [id number] ANSI-Medicaid [id number] ANSI-Medicaid [id number] ANSI-Medicaid [id number] ANSI-Medicaid [id number] ANSI-Medicaid [id number] ANSI-Medicaid [id number] ANSI-Medicaid [id number] ANSI-Medicaid [id number] ANSI-Medicaid [id number] ANSI-Medicaid [id number] ANSI-Medicaid [id number] ANSI-Medicaid [id number] MEDICAID [id number] SP [id number] ANSI-Medicaid [id number] ANSI-Medicaid [id number] ANSI-Medicaid [id number] ANSI-Commercial [id number] ANSI-Medicaid [id number] [employer] [facility] [id number] SP [id number] [facility] [id number] SELF PAY ONLY [id number] SP [id number] [facility] O [id number] S [id number] SELF PAY ONLY [id number] SP [id number] [facility] Maintenance Organization (O) [id number] Self [id number] [facility] (O) [id number] Self [id number] [facility] (O) [id number] Self [id number] [facility] (O) [id number] Self D Managed Care [facility] P [id number] S [id number] [employer] [id number] SP [id number] [employer] [id number] SP [id number] HMO BLUE [id number] SP [id number] HMO BLUE P [id number] S [id number] [employer] COMM[employer] [id number] SP [id number] [facility] O [id number] S [id number] [facility] [id number] SP [id number] Self Pay P UNAVAILABLE S UNAVAILA BLE Problems, Conditions, and Diagnoses Code Display Name Description Problem Type Effective Dates Data Source(s) follow up follow up Diagnosis 08/03/2020 08:05:57 AM [facility] A04.72 [id number] Clostridium difficile colitis Problem 04/12/2021 12:00:00 AM EDT eCW1 ([facility]) G47.33 [id number] DWAYNE (obstructive sleep apnea) Problem 12/07/2020 12:00:00 AM EDT eCW1 ([facility]) E66.01 [id number] Morbid obesity Problem 12/07/2020 12:00:00 A M EDT eCW1 ([facility]) G43.831 [id number] Migraine with aura a nd without status migrainosus, not intractable Problem 06/02/2020 12:00:00 AM EDT eCW1 ([facility]) Surgeries/Procedures Procedure Description Date Indications Data Source(s) MRI Brain W/O Contrast, Followed By Contrast 0 12:00:00 AM EDT [facility] ([facility], ) MRI Brain W/O Contrast, Followed By Contrast 0 12:00:00 AM EDT [facility] ([facility], ) Results ID Date Data Source [id number] 04/04/2021 01:13:00 PM EDT [facility] Name Value Range Interpretation Code Description Data Deborah rce(s) Supporting Document(s) SARS coronavirus 2 RNA [Presence] in Res piratory specimen by JAMES with probe detection NEGATIVE [facility] This lab was ordered by [facility] a nd reported by [facility]. ID Date Data Source [id number] 03/21/2021 02:05:00 PM EDT [facility] Name Value Range Interpretation Code Description Data Deborah rce(s) Supporting Document(s) SARS-CoV-2 (COVID 19) NEGATIVE - SARS-CoV-2 (COVID19) [facility] This lab was ordered by [facility] a nd reported by [facility]. ID Date Data Source LIPASE 03/08/2021 12:00:00 AM EDT eCW1 ([facility]) Name Value Range Interpretation Code Description Data Deborah rce(s) Supporting Document(s) [id number] LIPASE eCW1 ([facility]) ID Date Data Source Comprehensive Metabolic Profile (CMP) 03/08/2021 12:00:00 AM EDT eCW1 ([facility]) Name Value Range Interpretation Code Description Data Deborah rce(s) Supporting Document(s) 85 70-100 GLUCOSE, FASTING eCW1 ([facility]) 8 7-18 BLOOD UREA NITROGEN eCW1 ([facility]) 0.88 0.55-1.30 CREATININE FOR GFR eCW1 ([facility]) 4.0 3.5-5.1 POTASSIUM SERUM eCW1 ([facility]) 141 136-145 SODIUM LEVEL eCW1 ([facility]) 110 98-107 CHLORIDE LEVEL eCW1 ([facility]) > 60.0 >60 GLOMERULAR FILTRATION RATE eCW 1 ([facility]) 26 21-32 CARBON DIOXIDE LEVEL eCW1 ([facility]) 24 7-37 AST/SGOT eCW1 ([facility]) 8.9 8.5-10.1 CALCIUM LEVEL eCW1 ([facility]) 67 12-78 ALT/SGPT eCW1 ([facility]) 89 45-117 ALKALINE PHOSPHATASE eCW1 ([facility]) 7.1 6.4-8.2 TOTAL PROTEIN eCW1 ([facility]) 0.4 0.2-1.0 BILIRUBIN,TOTAL eCW1 ([facility]) 4.0 3.2-5.2 ALBUMIN eCW1 ([facility]) 1.3 1.2-2.2 ALBUMIN/GLOBULIN RATIO eCW1 ([facility]) ID Date Data Source CBC with Differential 03/08/2021 12:00:00 AM EDT eCW1 ([facility]) Name Value Range Interpretation Code Description Data Deborah rce(s) Supporting Document(s) 4.84 4.00-5.40 RED BLOOD COUNT eCW1 ([facility]) 10.2 4.0-10.0 WHITE BLOOD COUNT eCW1 ([facility]) 92.1 80.0-96.0 MEAN CORPUSCULAR VOLUME e CW1 ([facility]) 44.6 36.0-47.0 HEMATOCRIT eCW1 ([facility]) 14.6 12.0-15.5 HEMOGLOBIN eCW1 ([facility]) 32.7 32.0-36.5 MEAN CORPUSCULAR HGB CONC eCW1 ([facility]) 13.7 11.5-14.5 RED CELL DISTRIBUTION WID TH eCW1 ([facility]) 30.2 27.0-33.0 MEAN CORPUSCULAR HEMOGLOB IN eCW1 ([facility]) 335 150-450 PLATELET COUNT, AUTOMATED eCW1 ([facility]) 27.7 24.0-44.0 LYMPH % eCW1 ([facility]) 63.3 36.0-66.0 NEUTROPHILS % eCW1 ([facility]) 6.6 2.0-8.0 MONO % eCW1 ([facility]) 1.7 0.0-3.0 EOS % eCW1 ([facility]) 0.4 0.0-1.0 BASO % eCW1 ([facility]) 0.2 0.0-0.5 EOS # eCW1 ([facility]) 6.5 1.5-8.5 NEUTROPHILS # eCW1 ([facility]) 0.7 0.0-0.8 MONO # eCW1 ([facility]) 2.8 1.5-5.0 LYMPH # eCW1 ([facility]) 0.0 0.0-0.2 BASO # eCW1 ([facility]) ID Date Data Source 03/08/2021 12:00:00 AM EDT eCW1 ([facility]) Name Value Range Interpretation Code Description Data Deborah rce(s) Supporting Document(s) 42 25-115 AMYLASE eCW1 ([facility]) ID Date Data Source [id number] 08/03/2020 05:25:41 PM EST [facility] Name Value Range Interpretation Code Description Data Deborah rce(s) Supporting Document(s) Progress Note [facility] RHLHQd5bAbITNmYe59/GALqfHUAfk6FvYFylAZt9PMtpYYByK2TtNSZ0uZ6qJKJ7NMsOHfTfIcOcUjZ8 lbm [file] RmOjYcLuBVW1SuVxYdOvNE9IJb1KTmJ6SUC1gTCfVb3WXnukNVWOCpDtZJ2INDq= ID Date Data Source [id number] 06/28/2020 03:35:29 PM [facility] Name Value Range Interpretation Code Description Data Deborah rce(s) Supporting Document(s) Progress Note [facility] MDNPWc5eMuRDUiSn83/OWLoaDPSbp9QrMAvdDOr3JHioKLOjR1ZhPEY5fW4iFEY1RZgQNtOqDmRdSVCc lbm [file] DQogICAgICAgICAgICAgICAgICAgICAgICAgICAgICAgICAgICAgICAgICAgICAgICAgICAgICAgICAg ICAgICAgICAgICAgICAgICAgICAgICAgICAgICAgICAgICAgICAgICAgDQogICAgICAgICAgICAgICAg ICAgICAgICAgICAgICAgICAgICAgICAgICAgICAgIC AgICAgICAgICAgICAgICAgICAgICAgICAgICAgICAgICAgICAgICAgICAgICAgICAgICAgDQogICAgIC AgICAgICAgICAgICAgICAgICAgICAgICAgICAgICAgICAgICAgICAgICAgICAgICAgICAgICAgICAgIC AgICAgICAgICAgICAgICAgICAgICAgICAgICAgICAg ICAgDQogICAgICAgICAgICAgICAgICAgICAgICAgICAgICAgICAgICAgICAgICAgICAgICAgICAgICAg ICAgICAgICAgICAgICAgICAgICAgICAgICAgICAgICAgICAgICAgICAgICAgDQogICAgICAgICAgICAg ICAgICAgICAgICAgICAgICAgICAgICAgICAgICAgIC AgICAgICAgICAgICAgICAgICAgICAgICAgICAgICAgICAgICAgICAgICAgICAgICAgICAgICAgDQogIC AgICAgICAgICAgICAgICAgICAgICAgICAgICAgICAgICAgICAgICAgICAgICAgICAgICAgICAgICAgIC AgICAgICAgICAgICAgICAgICAgICAgICAgICAgICAg ICAgICAgDQogICAgICAgICAgICAgICAgICAgICAgICAgICAgICAgICAgICAgICAgICAgICAgICAgICAg ICAgICAgICAgICAgICAgICAgICAgICAgICAgICAgICAgICAgICAgICAgICAgICAgDQogICAgICAgICAg ICAgICAgICAgICAgICAgICAgICAgICAgICAgICAgIC AgICAgICAgICAgICAgICAgICAgICAgICAgICAgICAgICAgICAgICAgICAgICAgICAgICAgICAgICAgDQ ogICAgICAgICAgICAgICAgICAgICAgICAgICAgICAgICAgICAgICAgICAgICAgICAgICAgICAgICAgIC AgICAgICAgICAgICAgICAgICAgICAgICAgICAgICAg ICAgICAgICAgDQogICAgICAgICAgICAgICAgICAgICAgICAgICAgICAgICAgICAgICAgICAgICAgICAg HXNgJXJqFFDaJKQeSPXuROTjOVScJLIiJJCsSCIjUJEiIJIrWNVfFNYfZKAdIPQtTLTxGHm2T3sgWLDu CYAjNQ3jFHz6Oe8+YWvJSsZbFBN8anQnaO5JXV8ni0 WzGWbaLESuy1DtTTc9QK0KZJDmQCouFK4AJDdppq2DRKYvGFRbwQGYm6obDwDzFBE6PJLhVrnsUA3KSU WlX0wecyQgFVXtYNTDMJxtKAPPRClwVDCCDCSbKRXyWeTyQGtbWA0Qw5QkbQQ2RYc+Cs3VFY5dy9XvWY wvRHYvFS1vqo4DFAmAOwVpM1ZdkqT3SFU1FIMeEi6G ACVcXHGdtUZhBFQcNBGRYtMgL7MxtP65ISIYXm7+ZZigfqQrInrSEzW6IASyx5RaLSd2DA9WHRYbTKb3 sHTiWKXjR2Zgb9OhYo64HDAaQouhZwNbFoBvhEMLVZCdvNAmSYJZMHIehLTtAU0fDL1tSOJbDQAqZaL2 FCSHVX6XVBPsWNKhtTZuJXTcGPXQSX9IBVqfGUE1OL MkfpFkaTCzPBgaIC6MUHDwhxPsQfbhWACBESf+Gf1HVI1bn4WiLSveBIStGC4fky7XIKjTXuSgJ5C3xN WyI1U6BPlsTz9FQRGrHHXgAiLvUKKLBBtmIM5XBH5frhP4XG3MfNEsORSsGYOnvKJnTKp5B36yvIZkNV odFP4WGYF+Rachell+Zv7TIWPeUGPdJHJnKaDhBIUCSeHo Y7AqX6VFr9PgT8FdSM53zRxwxzGuTGbfJW6ERT2vBAEqOSISNF4LwLHjdG4wadQmITKvCDIZUkHoP05a dIUhGKYaIIH3TEGfJv3DSZMnD4WxnfGnbLobwsUfJGDcGABGLU2KCByogrFfkZYjpVzdTK25oVjiHC0S Pu3JGeQdRM5rrh9AsWYjSr5SSOMwAG4VMMUmENBhNX DhCVX3JGJcObRlRBkgNRKcOGGaIQK5ZUIwEXJfZH2VZiBkPAGpMkglPFUcHAYgNKZeap2TEPIbPGGqKU b2WPQbBIOhDVKwNRowNCSbHHQoWQC7AMNtPFSuKS5NGdFwMODvSTJaIbNwPBIqAVEhzx2UAXMrWHDlMv TmUHBnYFRtKLKpAJnwMYAhICE2WKG3RMFoZNRmPS8C IfTrFWLtHEU5MCYgROBwGXUuvx9LTJStJOVpMLl6TVLrYTQkBVSpBNlrLJWnBQD0FZPmKNXhXIPqLA3F JmRdOBBkUGR4UBbhNGNgHMZwki6ECGUsADVrNCdcWRTuZVYzFHJtTTjcSPSiLAUsXbn3EHEuEMBqXR2L NiFvDFUbUFW5IGCqDRGuESWwoh2ZHDPiANCoDqU4LW CpOSZhZVCwZSsiZLBoTRNmZSHaQSYsCLQgID5KVdQyHYFwPIAjLiFtBVStGEDhza3UGPJpURZuHrZrSp QwHWVjDENuCJmoTYWpTSP4LABmBYLzVWUfUK9XZjCpTLZhWkTaNtvnGWRuVWLbnz7VMWDbBQCxBZS0Rb RoXRHuEDAoOCelRWWtVJN5LcV5APDlPTGiQG5DSeFc BCZrZaB0VpSgAZOkLNDbjk3RSJHfSORlVzhcSfYfWYDaWWRbCNdfIZBcUXN6VHR5GFQrYOScLL9EVhMo OFOuJrtnEWFoLQWcGUOund5HLLBcNVLeVbQwYWIrLQNfOUFyIQcnSIBgKHP5AHZ9IGDvQOKePB8ZSsMr ZRMtRtekEdpsBEHjSYKhoo3IKMCsCNCcQKF2FGHkCA BuNDTiBHz7glElmBMbSJf2SA5PT8CaibVyOsKXBx1Br959OIVyVZUaZe9BT0gnLt3gHVTmRKKZVj8GEF q1YJJ4EyK7IBBoMkWmRaHcUWWeXABvCfY1IyS0DqN8Blz+JNw6HRBsUuOcCCMaVRQiDuM7MpO5WsZgUL XvRQebYrngPc3lXNEKPx2+PKycrGQiuFshBHQQBfB6PUFeKOuoNYUAVn7Y ID Date Data Source HEPATITIS PROFILE ACUTE 06/06/2020 05:39:05 AM EDT eCW1 ([facility]) Name Value Range Interpretation Code Description Data Deborah rce(s) Supporting Document(s) 0.1 eCW1 ([facility]) NEGATIVE eCW1 ([facility]) NEGATIVE eCW1 ([facility]) NEGATIVE eCW1 ([facility]) ID Date Data Source [id number] 06/06/2020 05:38:10 AM EDT eCW1 ([facility]) Name Value Range Interpretation Code Description Data Deborah rce(s) Supporting Document(s) eCW1 ([facility]) ID Date Data Source SYPHILIS ANTIBODY (RPR SCREEN) 06/06/2020 05:38:01 AM EDT eC W1 ([facility]) Name Value Range Interpretation Code Description Data Deborah rce(s) Supporting Document(s) NONREACTIVE eCW1 ([facility]) ID Date Data Source [id number] 05/23/2020 11:50:51 AM EDT [facility] Name Value Range Interpretation Code Description Data Deborah rce(s) Supporting Document(s) Progress Note [facility] OQMBHa6tGrAEPfVc85/NMKrqUFCmu5VmTYlxLZd6WBmbRDAqI8OhEOC8gY8cCRO3PPxCKpOiEpJsDCR3 lbm [file] 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 [file] 1SFOTVP5VZIn== Procedure Social History Code Duration Value Status Description Data Source(s ) Smoking 04/13/2021 12:00:00 AM EDT Never Smoker completed Never S moker eCW1 ([facility]) Smoking 04/13/2021 12:00:00 AM EDT Never Smoker completed Never S moker eCW1 ([facility]) Smoking 04/13/2021 12:00:00 AM EDT Never Smoker completed Never S moker eCW1 ([facility]) Smoking 04/13/2021 12:00:00 AM EDT Never Smoker completed Never S moker eCW1 ([facility]) Smoking 04/13/2021 12:00:00 AM EDT Never Smoker completed Never S moker eCW1 ([facility]) Smoking 04/13/2021 12:00:00 AM EDT Never Smoker completed Never S moker eCW1 ([facility]) Smoking 04/13/2021 12:00:00 AM EDT Never Smoker completed Never S moker eCW1 ([facility]) Smoking 03/30/2021 12:00:00 AM EDT Never Smoker completed Never S moker eCW1 ([facility]) Smoking 03/30/2021 12:00:00 AM EDT Never Smoker completed Never S moker eCW1 ([facility]) Smoking 03/30/2021 12:00:00 AM EDT Never Smoker completed Never S moker eCW1 ([facility]) Smoking 03/30/2021 12:00:00 AM EDT Never Smoker completed Never S moker eCW1 ([facility]) Smoking 03/30/2021 12:00:00 AM EDT Never Smoker completed Never S moker eCW1 ([facility]) Smoking 03/30/2021 12:00:00 AM EDT Never Smoker completed Never S moker eCW1 ([facility]) Smoking 03/30/2021 12:00:00 AM EDT Never Smoker completed Never S moker eCW1 ([facility]) Smoking 03/08/2021 12:00:00 AM EDT Never Smoker completed Never S moker eCW1 ([facility]) Smoking 03/08/2021 12:00:00 AM EDT Never Smoker completed Never S moker eCW1 ([facility]) Smoking 03/08/2021 12:00:00 AM EDT Never Smoker completed Never S moker eCW1 ([facility]) Smoking 03/08/2021 12:00:00 AM EDT Never Smoker completed Never S moker eCW1 ([facility]) Smoking 03/08/2021 12:00:00 AM EDT Never Smoker completed Never S moker eCW1 ([facility]) Smoking 01/24/2021 12:00:00 AM EDT Never Smoker completed Never S moker eCW1 ([facility]) Smoking 01/24/2021 12:00:00 AM EDT Never Smoker completed Never S moker eCW1 ([facility]) Smoking 01/24/2021 12:00:00 AM EDT Never Smoker completed Never S moker eCW1 ([facility]) Smoking 12/08/2020 12:00:00 AM EDT Never Smoker completed Never S moker eCW1 ([facility]) Smoking 12/08/2020 12:00:00 AM EDT Never Smoker completed Never S moker eCW1 ([facility]) Smoking 12/08/2020 12:00:00 AM EDT Never Smoker completed Never S moker eCW1 ([facility]) Smoking 12/08/2020 12:00:00 AM EDT Never Smoker completed Never S moker eCW1 ([facility]) Alcohol intake 08/02/2020 12:00:00 AM EST Ex-drinker (finding) comp leted Ex- drinker (finding) [facility] [place] Tobacco use and exposure 08/02/2020 12:00:00 AM EST Never used co mpleted Never used [facility] Smoking 08/02/2020 12:00:00 AM EST Never smoker completed Never s [facility] Alcohol intake 06/28/2020 12:00:00 AM EST Ex-drinker (finding) comp leted Ex- drinker (finding) [facility] Smoking 06/02/2020 12:00:00 AM EDT Never Smoker completed Never S moker eCW1 ([facility]) Smoking 06/02/2020 12:00:00 AM EDT Never Smoker completed Never S moker eCW1 ([facility]) Smoking 06/02/2020 12:00:00 AM EDT Never Smoker completed Never S moker eCW1 ([facility]) Smoking 06/02/2020 12:00:00 AM EDT Never Smoker completed Never S moker eCW1 ([facility]) Smoking 06/02/2020 12:00:00 AM EDT Never Smoker completed Never S moker eCW1 ([facility]) Smoking 06/02/2020 12:00:00 AM EDT Never Smoker completed Never S moker eCW1 ([facility]) Smoking 06/02/2020 12:00:00 AM EDT Never Smoker completed Never S moker eCW1 ([facility]) Smoking 06/02/2020 12:00:00 AM EDT Never Smoker completed Never S moker eCW1 ([facility]) Smoking 06/02/2020 12:00:00 AM EDT Never Smoker completed Never S moker eCW1 ([facility]) Smoking 06/02/2020 12:00:00 AM EDT Never Smoker completed Never S moker eCW1 ([facility]) Smoking 06/02/2020 12:00:00 AM EDT Never Smoker completed Never S moker eCW1 ([facility]) Smoking 06/02/2020 12:00:00 AM EDT Never Smoker completed Never S moker eCW1 ([facility]) Smoking 06/02/2020 12:00:00 AM EDT Never Smoker completed Never S moker eCW1 ([facility]) Smoking 06/02/2020 12:00:00 AM EDT Never Smoker completed Never S moker eCW1 ([facility]) Vital Signs ID Date Data Source UNK Name Value Range Interpretation Code Description Data Source(s) Body weight 307 [lb_av] 307 [lb_av] eCW1 ([facility]) Body height [in_i] eCW1 ([facility]) Body mass index (BMI) [Ratio] 49.55 kg/m2 49.55 kg/m2 W1 ([facility]) Respiratory rate 18 /min 18 /min eCW1 (On [facility] of [facility]) Body temperature 98.1 [degF] 98.1 [degF] eCW1 ( [facility]) Systolic blood pressure 132 mm[Hg] 132 mm[Hg] e CW1 ([facility]) Diastolic blood pressure 80 mm[Hg] 80 mm[Hg] eCW1 ([facility]) Respiratory rate 18 /min 18 /min eCW1 (On [facility] of [facility]) Body weight 307.8 [lb_av] 307.8 [lb_av] eCW1 ([facility]) Body height [in_i] W1 ([facility]) Body temperature 97.2 [degF] 97.2 [degF] eCW1 ( [facility]) Body mass index (BMI) [Ratio] 49.67 kg/m2 49.67 kg/m2 W1 ([facility]) Heart rate 110 /min 110 /min eCW1 ([facility]) Systolic blood pressure 120 mm[Hg] 120 mm[Hg] e CW1 ([facility]) Diastolic blood pressure 70 mm[Hg] 70 mm[Hg] eCW1 ([facility]) Body weight 317.2 [lb_av] 317.2 [lb_av] eCW1 ([facility]) Body height [in_i] eCW1 ([facility]) Body mass index (BMI) [Ratio] 51.19 kg/m2 51.19 kg/m2 eCW1 ([facility]) Heart rate 107 /min 107 /min eCW1 ([facility]) Respiratory rate 18 /min 18 /min eCW1 (On license of [facility]) Body temperature 97.8 [degF] 97.8 [degF] eCW1 ( [facility]) Systolic blood pressure 130 mm[Hg] 130 mm[Hg] e CW1 ([facility]) Diastolic blood pressure 80 mm[Hg] 80 mm[Hg] eCW1 ([facility]) Body weight 321.4 [lb_av] 321.4 [lb_av] eCW1 ([facility]) Body height [in_i] eCW1 ([facility]) Body mass index (BMI) [Ratio] 51.87 kg/m2 51.87 kg/m2 eCW1 ([facility]) Heart rate 90 /min 90 /min eCW1 ([facility]) Respiratory rate 18 /min 18 /min eCW1 ([facility] of [facility]) Body temperature 98.1 [degF] 98.1 [degF] eCW1 ( [facility]) Systolic blood pressure 122 mm[Hg] 122 mm[Hg] e CW1 ([facility]) Diastolic blood pressure 84 mm[Hg] 84 mm[Hg] eCW1 ([facility]) Systolic blood pressure 120 mm[Hg] 120 mm[Hg] e CW1 ([facility]) Body weight 330.8 [lb_av] 330.8 [lb_av] eCW1 ([facility]) Body height [in_i] eCW1 ([facility]) Body mass index (BMI) [Ratio] 53.39 kg/m2 53.39 kg/m2 eCW1 ([facility]) Heart rate 82 /min 82 /min eCW1 ([facility]) Respiratory rate 18 /min 18 /min eCW1 (On [facility] of [facility]) Body temperature 97.6 [degF] 97.6 [degF] eCW1 ( [facility]) Diastolic blood pressure 82 mm[Hg] 82 mm[Hg] eCW1 ([facility]) Body weight 338.6 [lb_av] 338.6 [lb_av] eCW1 ([facility]) Body height [in_i] eCW1 ([facility]) Body mass index (BMI) [Ratio] 54.65 kg/m2 54.65 kg/m2 eCW1 ([facility]) Heart rate 117 /min 117 /min eCW1 ([facility]) Respiratory rate 18 /min 18 /min eCW1 (On [facility] of [facility]) Body temperature 97.5 [degF] 97.5 [degF] eCW1 ( [facility]) Systolic blood pressure 124 mm[Hg] 124 mm[Hg] e CW1 ([facility]) Diastolic blood pressure 80 mm[Hg] 80 mm[Hg] eCW1 ([facility]) Body weight 326 [lb_av] 326 [lb_av] eCW1 ([facility]) Body height [in_i] eCW1 ([facility]) Body mass index (BMI) [Ratio] 52.61 kg/m2 52.61 kg/m2 eCW1 ([facility]) Heart rate 123 /min 123 /min eCW1 ([facility]) Respiratory rate 18 /min 18 /min eCW1 (On license of [facility]) Body temperature 98.1 [degF] 98.1 [degF] eCW1 ( [facility]) Systolic blood pressure 130 mm[Hg] 130 mm[Hg] e CW1 ([facility]) Diastolic blood pressure 86 mm[Hg] 86 mm[Hg] eCW1 ([facility]) ID Date Data Source [id number] 06/28/2020 03:35:29 PM [facility] Name Value Range Interpretation Code Description Data Source(s) WEIGHT RECORDED 329 lb 329 lb [facility] Body height Measured 66 in 66 in [facility] Patient Treatment Plan of Care Planned Activity Planned Date Details Description Data Source (s) Mupirocin 0.02 MG/MG Topical Ointment 04/13/2021 12:00:00 AM EDT eCW1 ([facility]) Mupirocin 0.02 MG/MG Topical Ointment 04/13/2021 12:00:00 AM EDT eCW1 ([facility]) Mupirocin 0.02 MG/MG Topical Ointment 04/13/2021 12:00:00 AM EDT eCW1 ([facility]) Mupirocin 0.02 MG/MG Topical Ointment 04/13/2021 12:00:00 AM EDT eCW1 ([facility]) Mupirocin 0.02 MG/MG Topical Ointment 04/13/2021 12:00:00 AM EDT eCW1 ([facility]) Mupirocin 0.02 MG/MG Topical Ointment 04/13/2021 12:00:00 AM EDT eCW1 ([facility]) Mupirocin 0.02 MG/MG Topical Ointment 04/13/2021 12:00:00 AM EDT eCW1 ([facility]) Firvanq 50 MG/ML 03/30/2021 12:00:00 AM EDT eCW1 ([facility]) Bacid - 03/30/2021 12:00:00 AM EDT e CW1 ([facility]) fidaxomicin 200 MG Oral Tablet [Dificid] 03/30/2021 12:00:00 AM EDT eCW1 ([facility]) Vancomycin 250 MG Oral Capsule 03/30/2021 12:00:00 AM EDT eCW1 ([facility]) Firvanq 50 MG/ML 03/30/2021 12:00:00 AM EDT eCW1 ([facility]) Bacid - 03/30/2021 12:00:00 AM EDT e CW1 ([facility]) fidaxomicin 200 MG Oral Tablet [Dificid] 03/30/2021 12:00:00 AM EDT eCW1 ([facility]) Vancomycin 250 MG Oral Capsule 03/30/2021 12:00:00 AM EDT eCW1 ([facility]) Firvanq 50 MG/ML 03/30/2021 12:00:00 AM EDT eCW1 ([facility]) Bacid - 03/30/2021 12:00:00 AM EDT e CW1 ([facility]) fidaxomicin 200 MG Oral Tablet [Dificid] 03/30/2021 12:00:00 AM EDT eCW1 ([facility]) Vancomycin 250 MG Oral Capsule 03/30/2021 12:00:00 AM EDT eCW1 ([facility]) Firvanq 50 MG/ML 03/30/2021 12:00:00 AM EDT eCW1 ([facility]) Bacid - 03/30/2021 12:00:00 AM EDT e CW1 ([facility]) fidaxomicin 200 MG Oral Tablet [Dificid] 03/30/2021 12:00:00 AM EDT eCW1 ([facility]) Vancomycin 250 MG Oral Capsule 03/30/2021 12:00:00 AM EDT eCW1 ([facility]) Firvanq 50 MG/ML 03/30/2021 12:00:00 AM EDT eCW1 ([facility]) Bacid - 03/30/2021 12:00:00 AM EDT e CW1 ([facility]) fidaxomicin 200 MG Oral Tablet [Dificid] 03/30/2021 12:00:00 AM EDT eCW1 ([facility]) Vancomycin 250 MG Oral Capsule 03/30/2021 12:00:00 AM EDT eCW1 ([facility]) Firvanq 50 MG/ML 03/30/2021 12:00:00 AM EDT eCW1 ([facility]) Bacid - 03/30/2021 12:00:00 AM EDT e CW1 ([facility]) fidaxomicin 200 MG Oral Tablet [Dificid] 03/30/2021 12:00:00 AM EDT eCW1 ([facility]) Vancomycin 250 MG Oral Capsule 03/30/2021 12:00:00 AM EDT eCW1 ([facility]) Firvanq 50 MG/ML 03/30/2021 12:00:00 AM EDT eCW1 (Formerly [facility]) Bacid - 03/30/2021 12:00:00 AM EDT e CW1 (Formerly [facility]) fidaxomicin 200 MG Oral Tablet [Dificid] 03/30/2021 12:00:00 AM EDT eCW1 (Formerly [facility]) Vancomycin 250 MG Oral Capsule 03/30/2021 12:00:00 AM EDT eCW1 (Formerly [facility]) Omeprazole 40 MG Delayed Release Oral Capsule 03/08/2021 12:00:00 A M EDT eCW1 (Formerly [facility]) Ergocalciferol 95252 UNT Oral Capsule [Drisdol] 12/26/2020 12:00:00 AM EDT eCW1 (Formerly [facility]) Ergocalciferol 34933 UNT Oral Capsule [Drisdol] 12/26/2020 12:00:00 AM EDT eCW1 (Formerly [facility]) duloxetine 60 MG Delayed Release Oral Capsule 06/26/2020 12:00:00 A M [facility]
--- OUTSIDE RECORDS SUMMARY | 2021-07-09 02:50 | CCD ---
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 Name Role Phone Monique Bangura Unavailable PROBLEMS Type Condition ICD9-CM Code [id number] Code Onset Dates Condition S tatus W/U Status Risk SNOMED Code Notes Problem Fatigue R53.83 Active confirmed 96875929 Problem Major depressive disorder, single episode, unspecified F32.9 Active confirmed 55028735 Problem Vitamin D deficiency E55.9 Active confirmed 11942826 Problem Numbness R20.0 Active confirmed 56171452 Problem Irregular menstrual bleeding N92.6 Active confirme d 79729820 Problem Primary oligomenorrhea N91.3 Active confirmed 48361734 Problem Daytime somnolence R40.0 Active confirmed 1 16796968098 Problem Psoriasis of scalp L40.9 Active confirmed 2 02387969 Problem 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 Active confirmed 307578688 Problem Severe major depression F32.2 Active confirmed 183740226 Problem Primary insomnia F51.01 Active confirmed 397 2004 Problem Morbid obesity E66.01 Active confirmed 60244 6002 Problem Brain mass G93.89 Active confirmed 604581931 Problem Endometriosis N80.9 Active confirmed 403744 003 Problem Clostridium difficile colitis A04.72 Active confirm ed 131881802 Problem Anxiety F41.9 Active confirmed 82499617 Problem Encounter for gynecological examination with abnormal finding Z01.411 Active confirmed 482717271 Problem Hirsutism L68.0 Active confirmed 924850065 Problem PCOS (polycystic ovarian syndrome) E28.2 Activ e confirmed 119514307 Problem Migraine with aura and without status migrainosu s, not intractable G43.109 Active confirmed 2472980 Problem DWAYNE (obstructive sleep apnea) G47.33 Active confirm ed 17821211 ALLERGIES Allergen (clinical drug ingredient) Drug/Non Drug Allergy do cumented on EMR Reaction Allergy Type Onset Date Status dexamethasone Dexamethasone([facility] Code:[address]-72) Anaphylaxis Drug Allergy Active budesonide Pulmicort([facility] Code:[address]-82) Anaphylaxis Drug Allergy Active Wellbutrin Restlessness/agitation Drug Allergy Active paroxetine Paxil([facility] Code:[address]-87) chills/martha vering alternating with hot flashes Drug Allergy Active ENCOUNTERS from 1995 to 2021-04-17 Encounter Location Date Provider Diagnosis [facility] [address] [place] [address] Mar, Monique Wetilir IMMUNIZATIONS No Information SOCIAL HISTORY Tobacco Use: Social History Observation Description Date Details (start date - stop date) Never Smoker Sex Assigned At : Social History Observation Description Sex Assigned At Unknown Education: Question Answer Notes Level of Education: Finished High School currently at [employer] Audit Question Answer Notes Total Score: 0 Interpretation: Alcohol Education Jehovah'S Witness: Question Answer Notes Jehovah'S Witness No denominational beliefs that would impact health care. Sexual [...] qid Mar, N ot-Taking Drisdol 1.25 MG (53816 UT) 1 capsule Orally weekly for 30 [...] Information RESULTS No Results REASON FOR VISIT letter for back to work MEDICAL (GENERAL) HISTORY Type Description Date Medical History Endometriosis - per Dr. Reyes [facility] Medical History Depression/Anxiety - Follows with Medical History PCOS ? 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 Oncology Dr. 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
--- OUTSIDE RECORDS SUMMARY | 2021-07-09 02:50 | CCD ---
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 Role Phone Monique Bangura Unavailable PROBLEMS Type Condition ICD9-CM Code [id number] Code Onset Dates Condition S tatus W/U Status Risk SNOMED Code Notes Problem Fatigue R53.83 Active confirmed 76024286 Problem Major depressive disorder, single episode, unspecified F32.9 Active confirmed 15275055 Problem Vitamin D deficiency E55.9 Active confirmed 26912171 Problem Numbness R20.0 Active confirmed 44303352 Problem Irregular menstrual bleeding N92.6 Active confirme d 73751371 Problem Primary oligomenorrhea N91.3 Active confirmed 98409571 Problem Daytime somnolence R40.0 Active confirmed 1 50404735954 Problem Psoriasis of scalp L40.9 Active confirmed 2 28988016 Problem 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 Active confirmed 385587995 Problem Severe major depression F32.2 Active confirmed 851712943 Problem Primary insomnia F51.01 Active confirmed 397 2004 Problem Morbid obesity E66.01 Active confirmed 99341 6002 Problem Brain mass G93.89 Active confirmed 840900572 Problem Endometriosis N80.9 Active confirmed 487416 003 Problem Clostridium difficile colitis A04.72 Active confirm ed 916875558 Problem Anxiety F41.9 Active confirmed 15367198 Problem Encounter for gynecological examination with abnormal finding Z01.411 Active confirmed 973670286 Problem Hirsutism L68.0 Active confirmed 937161161 Problem PCOS (polycystic ovarian syndrome) E28.2 Activ e confirmed 374475744 Problem Migraine with aura and without status migrainosu s, not intractable G43.109 Active confirmed 0596814 Problem DWAYNE (obstructive sleep apnea) G47.33 Active confirm ed 74551458 ALLERGIES Allergen (clinical drug ingredient) Drug/Non Drug Allergy do cumented on EMR Reaction Allergy Type Onset Date Status dexamethasone Dexamethasone([facility] Code:[address]-07) Anaphylaxis Drug Allergy Active budesonide Pulmicort([facility] Code:[address]-49) Anaphylaxis Drug Allergy Active Wellbutrin Restlessness/agitation Drug Allergy Active paroxetine Paxil([facility] Code:[address]-76) chills/martha vering alternating with hot flashes Drug Allergy Active ENCOUNTERS from 1995 to 2021-04-23 Encounter Location Date Provider Diagnosis [facility] [address] [place] [address] Mar, Monique Bangura Clostridium difficile colitis A04.72 IMMUNIZATIONS No Information SOCIAL HISTORY Tobacco Use: Social History Observation Description Date Details (start date - stop date) Never Smoker Sex Assigned At : Social History Observation Description Sex Assigned At Unknown Education: Question Answer Notes Level of Education: Finished High School currently at [employer] Audit Question Answer Notes Total Score: 0 Interpretation: Alcohol Education Faith: Question Answer Notes Faith No anglican beliefs that would impact health care. Sexual [...] FOR REFERRAL No Information VITAL SIGNS Weight 307.8 lbs Mar, Height 66" in Mar, BMI 49.67 kg/m2 Mar, Heart Rate 110 /min Mar, Respiratory Rate 18 /min Mar, Temperature 97.2 degrees Fahrenheit Mar, Oximetry 96 Mar, Blood pressure systolic 120 mm Hg Mar, Blood pressure diastolic 70 mm Hg Mar, MEDICATIONS Medication SIG (Take, Route, Frequency, Duration) Notes Start Da te End Date Status Ondansetron 4 MG 1 tablet on the tongue and a llow to dissolve Orally Every 6 hours as needed Active Bacid - as directed Orally Mar, Acti ve Firvanq 25 MG/ML 5 ml Orally qid Mar, N ot-Taking Drisdol 1.25 MG (96086 UT) 1 capsule Orally weekly for 30 [...] Information RESULTS No Results REASON FOR VISIT [facility] Inpatient/Cdiff colitis MEDICAL (GENERAL) HISTORY Type Description Date Medical History Endometriosis - per Dr. Reyes [facility] Medical History Depression/Anxiety - Follows with Medical History PCOS ? 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 Stinson (Ne[facility]), Oncology Dr. Livingston Medical History Focal Epilepsy [...] Treatment Notes Treatm ent Clinical Notes Mar, Clostridium difficile colitis (ICD-10 - A04.72) Resolving with dificid and s/p Zinplava infusion. Taking Probiotic. Has f/u with GI in May to to asssure no underlying Celiac or other inflamm bowel dz which may have increased her propensity to develop C. Diff. She has always had loose stool after every meal since her GB was removed. Once her bowels are back to baseline, she can go back to work. she will complete her abx and let me know when her bowels ar back to her usual baseline. PLAN OF TREATMENT Medication Medication Name Sig Start Date Stop Date Mupirocin 2 % 1 application [facility] Externally Three times a day for 5 day(s) Mar, Treatment Notes Assessment Notes Clinical Notes Clostridium difficile colitis Resolving with dificid and s/p Zinplava infusion. Taking Probiotic.Has f/u with GI in May to to asssure no underlying Celiac or other inflamm bowel dz which may have increased her propensity to develop C. Diff.She has always had loose stool after every meal since her GB was removed.Once her bowels are back to baseline, she can go back to work. she will complete her abx and let me know when her bowels ar back to her usual baseline. Next Appt Details 1 Week Reason: Provider Name:Yvette Dutta, 2021-04 02:00:00 PM, [address], , [place], [phone] Insurance Providers Payer Name Payer Address Payer Phone Insured Name Patient Relati onship to Insured Coverage Start Date Coverage End Date FOR[facility] COMMUNITY PLAN [facility] [address] [facility] [phone] EMMANUELLE ODELL self
--- OUTSIDE RECORDS SUMMARY | 2021-07-09 02:50 | CCD ---
Author Author [facility] Organization [facility] Address Unknown Phone Unavailable Care Team Providers Care Dye Blender Name Role Phone Monique Bangura Unavailable PROBLEMS Type Condition ICD9-CM Code [id number] Code Onset Dates Condition S tatus W/U Status Risk SNOMED Code Notes Problem Fatigue R53.83 Active confirmed 32040926 Problem Major depressive disorder, single episode, unspecified F32.9 Active confirmed 64756035 Problem Vitamin D deficiency E55.9 Active confirmed 17817337 Problem Numbness R20.0 Active confirmed 58191314 Problem Irregular menstrual bleeding N92.6 Active confirme d 59590075 Problem Primary oligomenorrhea N91.3 Active confirmed 79925566 Problem Daytime somnolence R40.0 Active confirmed 1 28306574514 Problem Psoriasis of scalp L40.9 Active confirmed 2 83402087 Problem 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 Active confirmed 169120076 Problem Severe major depression F32.2 Active confirmed 076017275 Problem Primary insomnia F51.01 Active confirmed 397 2004 Problem Morbid obesity E66.01 Active confirmed 21658 6002 Problem Brain mass G93.89 Active confirmed 091854650 Problem Endometriosis N80.9 Active confirmed 431222 003 Problem Clostridium difficile colitis A04.72 Active confirm ed 991945312 Problem Anxiety F41.9 Active confirmed 83810341 Problem Encounter for gynecological examination with abnormal finding Z01.411 Active confirmed 121845077 Problem Hirsutism L68.0 Active confirmed 751569347 Problem PCOS (polycystic ovarian syndrome) E28.2 Activ e confirmed 565043486 Problem Migraine with aura and without status migrainosu s, not intractable G43.109 Active confirmed 3686818 Problem DWAYNE (obstructive sleep apnea) G47.33 Active confirm ed 86548019 ALLERGIES Allergen (clinical drug ingredient) Drug/Non Drug Allergy do cumented on EMR Reaction Allergy Type Onset Date Status dexamethasone Dexamethasone([facility] Code:[address]-37) Anaphylaxis Drug Allergy Active budesonide Pulmicort([facility] Code:[address]-51) Anaphylaxis Drug Allergy Active Wellbutrin Restlessness/agitation Drug Allergy Active paroxetine Paxil([facility] Code:[address]-64) chills/martha vering alternating with hot flashes Drug Allergy Active ENCOUNTERS from 1995 to 2021-04-13 Encounter Location Date [facility] [phone] [place] [address] Mar, Monique Sveta IMMUNIZATIONS No Information SOCIAL HISTORY Tobacco Use: Social History Observation Description Date Details (start date - stop date) Never Smoker Sex Assigned At : Social History Observation Description Sex Assigned At Unknown Education: Question Answer Notes Level of Education: Finished High School currently at [employer] Audit Question Answer Notes Total Score: 0 Interpretation: Alcohol Education Confucianist: Question Answer Notes Confucianist No spiritism beliefs that would impact health care. Sexual [...] qid Mar, N ot-Taking Drisdol 1.25 MG (74243 UT) 1 capsule Orally weekly for 30 [...] No Results REASON FOR VISIT concern with her nail MEDICAL (GENERAL) HISTORY Type Description Date Medical History Endometriosis - per Dr. Reyes [facility] Medical History Depression/Anxiety - Follows with Medical History PCOS ? 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 Stinson ([facility] Oncology Dr. Livingston Medical History Focal Epilepsy [...] ER visit for syncope, MRI by Neurology 12/3/19 showed Angiomatous Meningioma left Cavernous sinus, Underwent [...] Mupirocin 2 % 1 application to r [facility] fi nger Externally Three times a day for 5 day(s) Mar, Next Appt Details Provider Name:Yvette Dutta, 2021-03 02:00:00 PM, [address], , [place], [phone] Insurance Providers Payer Name Payer Address Payer Phone Insured Name Patient Relati onship to Insured Coverage Start Date Coverage End Date [facility] COMMUNITY PLAN [facility] [address] [facility] [phone] EMMANUELLE ODELL self
--- OUTSIDE RECORDS SUMMARY | 2021-07-09 05:25 | CCD ---
Author Author [facility] Organization [facility] Address Unknown Phone Unavailable Care Team Providers Care Television Specialist Name Role Phone Desiree CHADWICK MD Unavailable Unavailable Desiree CHADWICK [...] Unavailable Unavailable Desiree CHADWICK MD Unavailable Unavailable FARRUKH, S HARRY COPELAND Unavailable Unavailable CHIN, S HARRY COPELAND Unavailable Unavailable CHIN, S HARRY COPELAND Unavailable Unavailable CHIN, S HARRY COPELAND Unavailable Unavailable CHIN, S HARRY COPELAND Unavailable Unavailable CHIN, S HARRY COPELAND Unavailable Unavailable CHIN, S HARRY COPELAND Unavailable Unavailable CHIN, S HARRY COPELAND Unavailable Unavailable CHIN, S HARRY COPELAND Unavailable Unavailable CHIN, S HARRY COPELAND Unavailable Unavailable CHIN, S HARRY COPELAND Unavailable Unavailable CHIN, S HARRY COPELAND Unavailable Unavailable CHIN, S HARRY COPELAND Unavailable Unavailable CHIN, S HARRY COPELAND Unavailable Unavailable CHIN, S HARRY COPELAND Unavailable Unavailable CHIN, S HARRY COPELAND Unavailable Unavailable CHIN, S HARRY COPELAND Unavailable Unavailable CHIN, S HARRY COPELAND Unavailable Unavailable CHIN, S HARRY COPELAND Unavailable Unavailable CHIN, S HARRY COPELAND Unavailable Unavailable CHIN, S HARRY COPELAND Unavailable Unavailable CHIN, S HARRY COPELAND Unavailable Unavailable CHIN, S HARRY COPELAND Unavailable Unavailable CHIN, S HARRY COPELAND Unavailable Unavailable FARRUKH, S HARRY COPELAND Unavailable Unavailable FARRUKH, S HARRY COPELAND Unavailable Unavailable CHIN, S HARRY COPELAND Unavailable Unavailable FARRUKH, S HARRY COPELAND Unavailable Unavailable FARRUKH, S HARRY COPELAND Unavailable Unavailable FARRUKH, S HARRY COPELAND Unavailable Unavailable FARRUKH S HARRY COPELAND Unavailable Unavailable FARRUKH S HARRY COPELAND Unavailable Unavailable FARRUKH S HARRY COPELAND Unavailable Unavailable FARRUKH S HARRY COPELAND Unavailable Unavailable FARRUKH S HARRY COPELAND Unavailable Unavailable FARRUKH S HARRY COPELAND Unavailable Unavailable FARRUKH S HARRY COPELAND Unavailable Unavailable FARRUKH, S HARRY COPELAND Unavailable Unavailable FARRUKH S HARRY COPELAND Unavailable Unavailable FARRUKH S HARRY COPELAND Unavailable Unavailable FARRUKH S HARRY COPELAND Unavailable Unavailable FARRUKH S HARRY COPELAND Unavailable Unavailable FARRUKH S HARRY COPELAND Unavailable Unavailable FARRUKH S HARRY COPELAND Unavailable Unavailable FARRUKH S HARRY COPELAND Unavailable Unavailable FARRUKH S HARRY COPELAND Unavailable Unavailable FARRUKH S HARRY COPELAND Unavailable Unavailable FARRUKH S HARRY COPELAND Unavailable Unavailable FARRUKH S HARRY COPELAND Unavailable Unavailable FARRUKH S HARRY COPELAND Unavailable Unavailable FARRUKH S HARRY COPELAND Unavailable Unavailable FARRUKH S HARRY COPELAND Unavailable Unavailable FARRUKH S HARRY COPELAND Unavailable Unavailable FARRUKH S HARRY COPELAND Unavailable Unavailable FARRUKH S HARRY COPELAND Unavailable Unavailable FARRUKH S HARRY COPELAND Unavailable Unavailable FARRUKH S HARRY COPELAND Unavailable Unavailable FARRUKH S HARRY COPELAND Unavailable Unavailable FARRUKH S HARRY COPELAND Unavailable Unavailable FARRUKH S HARRY COPELAND Unavailable Unavailable FARRUKH S HARRY COPELAND Unavailable Unavailable FARRUKH S HARRY COPELAND Unavailable Unavailable FARRUKH S HARRY COPELAND Unavailable Unavailable FARRUKH S HARRY COPELAND Unavailable Unavailable FARRUKH S HARRY COPELAND Unavailable Unavailable FARRUKH S HARRY COPELAND Unavailable Unavailable FARRUKH S HARRY COPELAND Unavailable Unavailable FARRUKH S HARRY COPELAND Unavailable Unavailable FARRUKH S HARRY COPELAND Unavailable Unavailable FARRUKH S HARRY COPELAND Unavailable Unavailable FARRUKH Desiree MCDONALD MD Unavailable Unavailable FIDE, T MEAHGAN [employer]ILITY MAINTENANCE REPAIRER Unavailable Unavailable FIDE, T MEAHGAN [employer]ILITY MAINTENANCE REPAIRER Unavailable Unavailable FIDE, T MEAHGAN [employer]ILITY MAINTENANCE REPAIRER Unavailable Unavailable FIDE, T MEAHGAN [employer]ILITY MAINTENANCE REPAIRER Unavailable Unavailable FIDE, T MEAHGAN [employer] UTILITY MAINTENANCE REPAIRER Unavailable Unavailable FIDE, T MEAHGAN GENERAL UTILITY MAINTENANCE REPAIRER Unavailable Unavailable FIDE, T MEAHGAN GENERAL UTILITY MAINTENANCE REPAIRER Unavailable Unavailable FIDE, T MEAHGAN [employer] UTILITY MAINTENANCE REPAIRER Unavailable Unavailable FIDE, T MEAHGAN [employer] UTILITY MAINTENANCE REPAIRER Unavailable Unavailable FIDE, T MEAHGAN [employer] UTILITY MAINTENANCE REPAIRER Unavailable Unavailable FIDE, T MEAHGAN [employer] UTILITY MAINTENANCE REPAIRER Unavailable Unavailable FIDE, T MEAHGAN [employer] UTILITY MAINTENANCE REPAIRER Unavailable Unavailable FIDE, T MEAHGAN GENERAL UTILITY MAINTENANCE REPAIRER Unavailable Unavailable FIDE, T MEAHGAN GENERAL UTILITY MAINTENANCE REPAIRER Unavailable Unavailable FIDE, T MEAHGAN GENER[employer] UTILITY MAINTENANCE REPAIRER Unavailable Unavailable FIDE, T MEAHGAN GENERAL UTILITY MAINTENANCE REPAIRER Unavailable Unavailable FIDE, T MEAHGAN GENERAL UTILITY MAINTENANCE REPAIRER Unavailable Unavailable FIDE, T MEAHGAN GENER[employer] UTILITY MAINTENANCE REPAIRER Unavailable Unavailable FIDE, T MEAHGAN GENER[employer] UTILITY MAINTENANCE REPAIRER Unavailable Unavailable FIDE, T MEAHGAN GENER[employer] UTILITY MAINTENANCE REPAIRER Unavailable Unavailable FIDE, T MEAHGAN GENERAL UTILITY MAINTENANCE REPAIRER Unavailable Unavailable FIDE, T MEAHGAN GENERAL UTILITY MAINTENANCE REPAIRER Unavailable Unavailable FIDE, T MEAHGAN [employer]AL UTILITY MAINTENANCE REPAIRER Unavailable Unavailable FIDE, T MEAHGAN [employer] UTILITY MAINTENANCE REPAIRER Unavailable Unavailable FIDE, T MEAHGAN [employer] UTILITY MAINTENANCE REPAIRER Unavailable Unavailable FIDE, T MEAHGAN GENERAL UTILITY MAINTENANCE REPAIRER Unavailable Unavailable FIDE, T MEAHGAN GENER[employer] UTILITY MAINTENANCE REPAIRER Unavailable Unavailable FIDE, T MEAHGAN [employer] UTILITY MAINTENANCE REPAIRER Unavailable Unavailable FIDE, T MEAHGAN GENER[employer] UTILITY MAINTENANCE REPAIRER Unavailable Unavailable FIDE, T MEAHGAN [employer] UTILITY MAINTENANCE REPAIRER Unavailable Unavailable FIDE, T MEAHGAN GENERAL UTILITY MAINTENANCE REPAIRER Unavailable Unavailable FIDE, T MEAHGAN GENER[employer] UTILITY MAINTENANCE REPAIRER Unavailable Unavailable FIDE, T MEAHGAN GENERAL UTILITY MAINTENANCE REPAIRER Unavailable Unavailable FIDE, T MEAHGAN GENERAL UTILITY MAINTENANCE REPAIRER Unavailable Unavailable FIDE, T MEAHGAN [employer] UTILITY MAINTENANCE REPAIRER Unavailable Unavailable FIDE, T MEAHGAN [employer] UTILITY MAINTENANCE REPAIRER Unavailable Unavailable FIDE, T MEAHGAN [employer] UTILITY MAINTENANCE REPAIRER Unavailable Unavailable Andrew Zurita MD Unavailable Unavailable Andrew Zurita MD Unavailable Unavailable Andrew Zurita MD Unavailable Unavailable Andrew Zuriat MD Unavailable Unavailable Andrew Zurita MD Unavailable Unavailable Andrew Zurita MD Unavailable Unavailable Andrew Zurita MD Unavailable Unavailable Andrew Zurita MD Unavailable Unavailable Andrew Zurita MD Unavailable Unavailable Andrew Zurita MD Unavailable Unavailable Andrew Zurita MD Unavailable Unavailable Andrew Zurita MD Unavailable Unavailable Ali, Andrew MD Unavailable [...] Unavailable Ali, Andrew MD Unavailable Unavailable Ali, Adnrew MD Unavailable Unavailable Ali, Andrew MD Unavailable Unavailable Ali, Andrew MD Unavailable Unavailable Ali, Andrew MD Unavailable Unavailable Ali, Andrew MD Unavailable Unavailable Ali, Andrew MD Unavailable Unavailable Ali, Andrew MD Unavailable Unavailable Ali, Andrew MD Unavailable Unavailable Ali, Andrew MD Unavailable Unavailable Ali, Andrew MD Unavailable Unavailable Ali, Andrew MD Unavailable Unavailable ELSIE OLIVO MD Unavailable Unavailable ELSIE OLIVO MD Unavailable Unavailable ELSIE OLIVO MD Unavailable Unavailable ELSIE OLIVO MD Unavailable Unavailable Hilton, Emile Pérez MD Unavailable Unavailable Miki, Emile Pérez MD Unavailable Unavailable Hilton, Emile Pérez MD Unavailable Unavailable Hilton, Emile Pérez MD Unavailable Unavailable Hilton, Emile Pérez MD Unavailable Unavailable Hilton, Emile Pérez MD Unavailable Unavailable Miki, Emile Pérez MD Unavailable Unavailable Miki, Emile Pérez MD Unavailable Unavailable Miki, Emile Pérez MD Unavailable Unavailable Miki, Emile Préez MD Unavailable Unavailable Hilton, Emile Pérez MD Unavailable Unavailable Hilton, Emile Pérez MD Unavailable Unavailable Miki, Emile Pérez MD Unavailable Unavailable Hilton, Emile Pérez MD Unavailable Unavailable Miki, Emile Pérez MD Unavailable Unavailable Miki, Emile Pérez MD Unavailable Unavailable Hilton, Emile Pérez MD Unavailable Unavailable Miki, Emile Pérez MD Unavailable Unavailable Miki, Emile Pérez MD Unavailable Unavailable Miki, Emile Pérez MD Unavailable Unavailable Hilton, A Beto MD Unavailable Unavailable Miki, A Beto MD Unavailable Unavailable Miki, A Beto MD Unavailable Unavailable Hilton, A Beto MD Unavailable Unavailable Hilton, A Beto MD Unavailable Unavailable Hilton, A Beto MD Unavailable Unavailable Miki, A Beto MD Unavailable Unavailable Hilton, A Beto MD Unavailable Unavailable Miki, A Beto MD Unavailable Unavailable Miki, A Beto MD Unavailable Unavailable Hilton, A Beto MD Unavailable Unavailable Miki, A Beto MD Unavailable Unavailable Miki, A Beto MD Unavailable Unavailable Miki, A Beto MD Unavailable Unavailable Hilton, A Beto MD Unavailable Unavailable Hilton, A Beto MD Unavailable Unavailable Hilton, A Beto MD Unavailable Unavailable Re-disclosure Warning [...] is protected by Article 27-F of the [facility] Public Health law. If you continue you may have access to information: Regarding HIV / AIDS; Provided by facilities licensed or operated by the [facility] Office of Mental Health; or Provided by the [facility] Office for People With Developmental Disabilities. If such information is present, then the following [facility] mandated warning applies: This information has been [...] law may result in a fine or long-term sentence or both. A general authorization for [...] Date Indications Data Source(s ) Unknown [address] [facility] [address] 06/19/2021 12:00:00 AM EDT eCW1 ([facility]) Unknown [address] [facility] [place] [address] 06/07/2021 12:00:00 AM EDT eCW1 ([facility]) (BHVHLTH) [facility] Scheduled Visit [address] [place] [id number] 04/16/2021 12:00:00 AM EDT eCW1 ([facility]) Unknown [address] [facility] [address] 04/16/2021 12:00:00 AM EDT eCW1 [facility]) Outpatient [address] [facility] [address] 04/13/2021 12:00:00 AM EDT eCW1 ([facility]) Unknown [address] [facility] [place] [address] 04/13/2021 12:00:00 AM EDT eCW1 ([facility]) Outpatient [address] [facility] [address] 04/12/2021 12:00:00 AM EDT eCW1 ([facility]) Unknown [address] [facility] [place] [address] 04/04/2021 12:00:00 AM EDT eCW1 ([facility]) (TV_Virtual) Virtual Enc Tel Health Visit [address] [place] [phone] 04/03/2021 12:00:00 AM EDT eCW1 ([facility]) Unknown [address] [facility] [address] 04/02/2021 12:00:00 AM EDT eCW1 [facility]) [place] [address] [facility] [address] 04/02/2021 12:00:00 AM EDT eCW1 ([facility]) [place] [address] [facility] [address] 03/30/2021 12:00:00 AM EDT eCW1 ([facility]) [place] [address] [facility] [address] 03/30/2021 12:00:00 AM EDT eCW1 ([facility]) Unknown [address] [facility] [address] 03/30/2021 12:00:00 AM EDT eCW1 ([facility]) Unknown [address] [facility] [address] 03/23/2021 12:00:00 AM EDT eCW1 ([facility]) Unknown [address] [facility] [address] 03/23/2021 12:00:00 AM EDT eCW1 ([facility]) Unknown [address] [facility] [address] 03/22/2021 12:00:00 AM EDT eCW1 ([facility]) Unknown [address] [facility] [address] 03/21/2021 12:00:00 AM EDT eCW1 ([facility]) Out[place] [address] [facility] [address] 03/08/2021 12:00:00 AM EDT eCW1 [facility]) (BHVHLTH) [facility] Health Scheduled Visit [address] [place] [address] 02/14/2021 12:00:00 AM EDT eCW1 ([facility]) Unknown [address] [facility] [address] 02/13/2021 12:00:00 AM EDT [facility] [address] [facility] [address] 01/24/2021 12:00:00 AM EDT eCW1 ([facility]) Outpatient Attender: HARRY CHADWICK MD 01/10/2021 12:00:00 AM [facility] Outpatient Referrer: ELSIE OLIVO MD 01/10/2021 12:0 0:00 AM [facility] Unknown [address] [facility] [address] 01/08/2021 12:00:00 AM EDT eCW1 ([facility]) (BHVHLTH) [facility] Scheduled Visit [address] [place] [address] 01/04/2021 12:00:00 AM EDT eCW1 ([facility]) Outpatient Attender: Beto Livingston MD 12/21/2020 12:00:0 0 AM [facility] Outpatient [address] [facility] [address] 12/07/2020 12:00:00 AM EDT eCW1 ([facility]) (BHVHLTH) [facility] Scheduled Visit [address] [place] [address] 12/07/2020 12:00:00 AM EDT eCW1 ([facility]) Outpatient Attender: HARRY CHADWICK MD 11/15/2020 12:00:00 AM [facility] Outpatient Attender: HARRY CHADWICK MD 11/08/2020 12:00:00 AM [facility] Unknown [address] [facility] [address] 11/07/2020 12:00:00 AM EDT eCW1 ([facility]) Unknown [address] [facility] [place] [address] 10/20/2020 12:00:00 AM EST eCW1 ([facility]) (TV_Virtual) Virtual [facility] Health Visit [address] [place] [address] 10/16/2020 12:00:00 AM EST eCW1 ([facility]) Unknown [address] [facility] [place] [address] 10/12/2020 12:00:00 AM EST eCW1 ([facility]) Outpatient Attender: HARRY CHADWICK MD 10/11/2020 12:00:00 AM EST [facility] Outpatient Referrer: ELSIE OLIVO MD 10/11/2020 12:0 0:00 AM [facility] Outpatient Referrer: ELSIE OLIVO MD 10/04/2020 12:0 0:00 AM [facility] (TV_Virtual) Virtual [facility] Tel Health Visit [address] [place] [phone] 09/26/2020 12:00:00 AM EST eCW1 ([facility]) Outpatient Referrer: ELSIE OLIVO MD 09/21/2020 12:0 0:00 AM [facility] (TV_Virtual) [facility] Visit [address] [place] [phone] 09/07/2020 12:00:00 AM EST eCW1 ([facility]) Unknown [address] [facility] [address] 09/05/2020 12:00:00 AM EST eCW1 ([facility]) Unknown [address] [facility] [place] [address] 08/23/2020 12:00:00 AM EST eCW1 ([facility]) (TV_Virtual) [facility] Visit [address] [place] [address] 08/07/2020 12:00:00 AM EST eCW1 ([facility]) Outpatient Attender: Beto Livingston MDReferrer: HARRY ROGER MD [id number] 08/03/2020 12:00:00 AM EST - 08/03/2020 04:20:42 PM EST Benign neoplasm of meninges, unspecified [facility] Benign neoplasm of meninges, unspecified Outpatient Attender: Andrew Zurita MD Main office - [place] 06/28/2020 11:00:00 AM EST [facility]ENT ([facility], ) Outpatient Attender: HARRY CHADWICK MD [id number] 06/28/2020 12:00:00 AM [facility] ([facility]) [facility] Scheduled Visit [address] [place] [address] 06/26/2020 12:00:00 AM EST eCW1 ([facility]) Outpatient Referrer: HERNANDO ELIZALDE NP 06/23/2020 12:00:0 0 AM [facility] ([facility]) [facility] Scheduled Visit [address] [place] [address] 06/14/2020 12:00:00 AM EDT eCW1 ([facility]) Unknown [address] [facility] [address] 06/06/2020 12:00:00 AM EDT eCW1 ([facility]) Outpatient [address] [facility] [address] 06/02/2020 12:00:00 AM EDT eCW1 ([facility]) Unknown [address] [facility] [address] 05/26/2020 12:00:00 AM EDT eCW1 ([facility]) [facility] [address] [place] [address] 05/12/2020 12:00:00 AM EDT eCW1 ([facility]) Office Visit Attender: Andrew Zurita MD Main office - [place] 05/09/2020 12:00:00 PM EDT MED[facility] ([facility]) Outpatient Attender: Beto Livingston MD [facility] 10/27/2019 1 2:00:00 AM EDT Benign neoplasm of meninges, unspecified [facility] Benign neoplasm of meninges, unspecified Medications Medication Brand Name Start Date Product Form Dose Route Admi nistrative Instructions Pharmacy Instructions Status Indications Reaction Description Data Source(s) Mupirocin 0.02 MG/MG Topical Ointment Mupirocin 2 % Mupiroci n 2 % 04/13/2021 12:00:00 AM EDT active Mupiroci n 2 % eCW1 ([facility]) Mupirocin 0.02 MG/MG Topical Ointment Mupirocin 2 % Mupiroci n 2 % 04/13/2021 12:00:00 AM EDT active Mupiroci n 2 % eCW1 ([facility]) Mupirocin 0.02 MG/MG Topical Ointment Mupirocin 2 % Mupiroci n 2 % 04/13/2021 12:00:00 AM EDT active Mupiroci n 2 % eCW1 ([facility]) Mupirocin 0.02 MG/MG Topical Ointment Mupirocin 2 % Mupiroci n 2 % 04/13/2021 12:00:00 AM EDT active Mupiroci n 2 % eCW1 ([facility]) Mupirocin 0.02 MG/MG Topical Ointment Mupirocin 2 % Mupiroci n 2 % 04/13/2021 12:00:00 AM EDT active Mupiroci n 2 % eCW1 ([facility]) Mupirocin 0.02 MG/MG Topical Ointment Mupirocin 2 % Mupiroci n 2 % 04/13/2021 12:00:00 AM EDT active Mupiroci n 2 % eCW1 ([facility]) Mupirocin 0.02 MG/MG Topical Ointment Mupirocin 2 % Mupiroci n 2 % 04/13/2021 12:00:00 AM EDT active Mupiroci n 2 % eCW1 ([facility]) Vancomycin 250 MG Oral Capsule Vancomycin HCl 250 MG Vancomy mauri HCl 250 MG 03/30/2021 12:00:00 AM EDT active Vancomycin HCl 250 MG eCW1 ([facility]) Firvanq 50 MG/ML Firvanq 50 MG/ML 03/30/2021 12:00:00 AM EDT 10. 0 {ml} active Firvanq 50 MG/ML eCW1 ([facility]) Bacid - Bacid - 03/30/2021 12:00:00 AM EDT active Bacid - eCW1 ([facility]) Bacid - Bacid - 03/30/2021 12:00:00 AM EDT active Bacid - eCW1 ([facility]) fidaxomicin 200 MG Oral Tablet [Dificid] Dificid 200 MG Difi wali 200 MG 03/30/2021 12:00:00 AM EDT 1.0 {tablet} active Dificid 200 MG eCW1 ([facility]) Vancomycin 250 MG Oral Capsule Vancomycin HCl 250 MG Vancomy mauri HCl 250 MG 03/30/2021 12:00:00 AM EDT suspended Vancomycin HCl 250 MG eCW1 ([facility]) fidaxomicin 200 MG Oral Tablet [Dificid] Dificid 200 MG Difi wali 200 MG 03/30/2021 12:00:00 AM EDT 1.0 {tablet} active Dificid 200 MG eCW1 ([facility]) Firvanq 50 MG/ML Firvanq 50 MG/ML 03/30/2021 12:00:00 AM EDT 10. 0 {ml} active Firvanq 50 MG/ML eCW1 ([facility]) Vancomycin 250 MG Oral Capsule Vancomycin HCl 250 MG Vancomy mauri HCl 250 MG 03/30/2021 12:00:00 AM EDT suspended Vancomycin HCl 250 MG eCW1 ([facility]) Firvanq 50 MG/ML Firvanq 50 MG/ML 03/30/2021 12:00:00 AM EDT 10. 0 {ml} active Firvanq 50 MG/ML eCW1 ([facility]) Vancomycin 250 MG Oral Capsule Vancomycin HCl 250 MG Vancomy mauri HCl 250 MG 03/30/2021 12:00:00 AM EDT suspended Vancomycin HCl 250 MG eCW1 ([facility]) Vancomycin 250 MG Oral Capsule Vancomycin HCl 250 MG Vancomy mauri HCl 250 MG 03/30/2021 12:00:00 AM EDT active Vancomycin HCl 250 MG eCW1 ([facility]) Firvanq 50 MG/ML Firvanq 50 MG/ML 03/30/2021 12:00:00 AM EDT 10. 0 {ml} suspended Firvanq 50 MG/ML eCW1 ([facility]) Bacid - Bacid - 03/30/2021 12:00:00 AM EDT active Bacid - eCW1 ([facility]) Firvanq 50 MG/ML Firvanq 50 MG/ML 03/30/2021 12:00:00 AM EDT 10. 0 {ml} active Firvanq 50 MG/ML eCW1 ([facility]) fidaxomicin 200 MG Oral Tablet [Dificid] Dificid 200 MG Difi wali 200 MG 03/30/2021 12:00:00 AM EDT 1.0 {tablet} active Dificid 200 MG eCW1 ([facility]) Vancomycin 250 MG Oral Capsule Vancomycin HCl 250 MG Vancomy mauri HCl 250 MG 03/30/2021 12:00:00 AM EDT active Vancomycin HCl 250 MG eCW1 ([facility]) Vancomycin 250 MG Oral Capsule Vancomycin HCl 250 MG Vancomy mauri HCl 250 MG 03/30/2021 12:00:00 AM EDT active Vancomycin HCl 250 MG eCW1 ([facility]) fidaxomicin 200 MG Oral Tablet [Dificid] Dificid 200 MG Difi wali 200 MG 03/30/2021 12:00:00 AM EDT 1.0 {tablet} active Dificid 200 MG eCW1 ([facility]) fidaxomicin 200 MG Oral Tablet [Dificid] Dificid 200 MG Difi wali 200 MG 03/30/2021 12:00:00 AM EDT 1.0 {tablet} active Dificid 200 MG eCW1 ([facility]) Bacid - Bacid - 03/30/2021 12:00:00 AM EDT active Bacid - eCW1 ([facility]) fidaxomicin 200 MG Oral Tablet [Dificid] Dificid 200 MG Difi wali 200 MG 03/30/2021 12:00:00 AM EDT 1.0 {tablet} active Dificid 200 MG eCW1 ([facility]) Bacid - Bacid - 03/30/2021 12:00:00 AM EDT active Bacid - eCW1 ([facility]) Bacid - Bacid - 03/30/2021 12:00:00 AM EDT active Bacid - eCW1 ([facility]) fidaxomicin 200 MG Oral Tablet [Dificid] Dificid 200 MG Difi wali 200 MG 03/30/2021 12:00:00 AM EDT 1.0 {tablet} active Dificid 200 MG eCW1 ([facility]) fidaxomicin 200 MG Oral Tablet [Dificid] Dificid 200 MG Difi wali 200 MG 03/30/2021 12:00:00 AM EDT 1.0 {tablet} active Dificid 200 MG eCW1 ([facility]) fidaxomicin 200 MG Oral Tablet [Dificid] Dificid 200 MG Difi wali 200 MG 03/30/2021 12:00:00 AM EDT 1.0 {tablet} active Dificid 200 MG eCW1 ([facility]) Firvanq 50 MG/ML Firvanq 50 MG/ML 03/30/2021 12:00:00 AM EDT 10. 0 {ml} suspended Firvanq 50 MG/ML eCW1 ([facility]) fidaxomicin 200 MG Oral Tablet [Dificid] Dificid 200 MG Difi wali 200 MG 03/30/2021 12:00:00 AM EDT 1.0 {tablet} active Dificid 200 MG eCW1 ([facility]) Bacid - Bacid - 03/30/2021 12:00:00 AM EDT active Bacid - eCW1 ([facility]) Bacid - Bacid - 03/30/2021 12:00:00 AM EDT active Bacid - eCW1 ([facility]) Firvanq 50 MG/ML Firvanq 50 MG/ML 03/30/2021 12:00:00 AM EDT 10. 0 {ml} suspended Firvanq 50 MG/ML eCW1 ([facility]) Firvanq 50 MG/ML Firvanq 50 MG/ML 03/30/2021 12:00:00 AM EDT 10. 0 {ml} active Firvanq 50 MG/ML eCW1 ([facility]) Firvanq 50 MG/ML Firvanq 50 MG/ML 03/30/2021 12:00:00 AM EDT 10. 0 {ml} active Firvanq 50 MG/ML eCW1 ([facility]) Bacid - Bacid - 03/30/2021 12:00:00 AM EDT active Bacid - eCW1 ([facility]) Bacid - Bacid - 03/30/2021 12:00:00 AM EDT active Bacid - eCW1 ([facility]) fidaxomicin 200 MG Oral Tablet [Dificid] Dificid 200 MG Difi wali 200 MG 03/30/2021 12:00:00 AM EDT 1.0 {tablet} active Dificid 200 MG eCW1 ([facility]) Bacid - Bacid - 03/30/2021 12:00:00 AM EDT active Bacid - eCW1 ([facility]) Firvanq 50 MG/ML Firvanq 50 MG/ML 03/30/2021 12:00:00 AM EDT 10. 0 {ml} suspended Firvanq 50 MG/ML eCW1 ([facility]) Vancomycin 250 MG Oral Capsule Vancomycin HCl 250 MG Vancomy mauri HCl 250 MG 03/30/2021 12:00:00 AM EDT suspended Vancomycin HCl 250 MG eCW1 ([facility]) Firvanq 50 MG/ML Firvanq 50 MG/ML 03/30/2021 12:00:00 AM EDT 10. 0 {ml} suspended Firvanq 50 MG/ML eCW1 ([facility]) Firvanq 50 MG/ML Firvanq 50 MG/ML 03/30/2021 12:00:00 AM EDT 10. 0 {ml} suspended Firvanq 50 MG/ML eCW1 ([facility]) Firvanq 50 MG/ML Firvanq 50 MG/ML 03/30/2021 12:00:00 AM EDT 10. 0 {ml} suspended Firvanq 50 MG/ML eCW1 ([facility]) Vancomycin 250 MG Oral Capsule Vancomycin HCl 250 MG Vancomy mauri HCl 250 MG 03/30/2021 12:00:00 AM EDT active Vancomycin HCl 250 MG eCW1 ([facility]) Bacid - Bacid - 03/30/2021 12:00:00 AM EDT active Bacid - eCW1 ([facility]) Bacid - Bacid - 03/30/2021 12:00:00 AM EDT active Bacid - eCW1 ([facility]) fidaxomicin 200 MG Oral Tablet [Dificid] Dificid 200 MG Difi wali 200 MG 03/30/2021 12:00:00 AM EDT 1.0 {tablet} active Dificid 200 MG eCW1 ([facility]) Vancomycin 250 MG Oral Capsule Vancomycin HCl 250 MG Vancomy mauri HCl 250 MG 03/30/2021 12:00:00 AM EDT suspended Vancomycin HCl 250 MG eCW1 ([facility]) Vancomycin 250 MG Oral Capsule Vancomycin HCl 250 MG Vancomy mauri HCl 250 MG 03/30/2021 12:00:00 AM EDT active Vancomycin HCl 250 MG eCW1 ([facility]) Vancomycin 250 MG Oral Capsule Vancomycin HCl 250 MG Vancomy mauri HCl 250 MG 03/30/2021 12:00:00 AM EDT suspended Vancomycin HCl 250 MG eCW1 ([facility]) Vancomycin 250 MG Oral Capsule Vancomycin HCl 250 MG Vancomy mauri HCl 250 MG 03/30/2021 12:00:00 AM EDT active Vancomycin HCl 250 MG eCW1 ([facility]) Bacid - Bacid - 03/30/2021 12:00:00 AM EDT active Bacid - eCW1 ([facility]) Vancomycin 250 MG Oral Capsule Vancomycin HCl 250 MG Vancomy mauri HCl 250 MG 03/30/2021 12:00:00 AM EDT suspended Vancomycin HCl 250 MG eCW1 ([facility]) fidaxomicin 200 MG Oral Tablet [Dificid] Dificid 200 MG Difi wali 200 MG 03/30/2021 12:00:00 AM EDT 1.0 {tablet} active Dificid 200 MG eCW1 ([facility]) Firvanq 50 MG/ML Firvanq 50 MG/ML 03/30/2021 12:00:00 AM EDT 10. 0 {ml} active Firvanq 50 MG/ML eCW1 ([facility]) fidaxomicin 200 MG Oral Tablet [Dificid] Dificid 200 MG Difi wali 200 MG 03/30/2021 12:00:00 AM EDT 1.0 {tablet} active Dificid 200 MG eCW1 ([facility]) Firvanq 25 MG/ML Firvanq 25 MG/ML 03/23/2021 12:00:00 AM EDT 5.0 {ml} active Firvanq 25 MG/ML eCW1 ([facility]) Firvanq 25 MG/ML Firvanq 25 MG/ML 03/23/2021 12:00:00 AM EDT 5.0 {ml} active Firvanq 25 MG/ML eCW1 ([facility]) Firvanq 25 MG/ML Firvanq 25 MG/ML 03/23/2021 12:00:00 AM EDT 5.0 {ml} suspended Firvanq 25 MG/ML eCW1 ([facility]) Firvanq 25 MG/ML Firvanq 25 MG/ML 03/23/2021 12:00:00 AM EDT 5.0 {ml} active Firvanq 25 MG/ML eCW1 ([facility]) Firvanq 25 MG/ML Firvanq 25 MG/ML 03/23/2021 12:00:00 AM EDT 5.0 {ml} active Firvanq 25 MG/ML eCW1 ([facility]) Firvanq 25 MG/ML Firvanq 25 MG/ML 03/23/2021 12:00:00 AM EDT 5.0 {ml} active Firvanq 25 MG/ML eCW1 ([facility]) Firvanq 25 MG/ML Firvanq 25 MG/ML 03/23/2021 12:00:00 AM EDT 5.0 {ml} suspended Firvanq 25 MG/ML eCW1 ([facility]) Firvanq 25 MG/ML Firvanq 25 MG/ML 03/23/2021 12:00:00 AM EDT 5.0 {ml} suspended Firvanq 25 MG/ML eCW1 ([facility]) Firvanq 25 MG/ML Firvanq 25 MG/ML 03/23/2021 12:00:00 AM EDT 5.0 {ml} active Firvanq 25 MG/ML eCW1 ([facility]) Firvanq 25 MG/ML Firvanq 25 MG/ML 03/23/2021 12:00:00 AM EDT 5.0 {ml} active Firvanq 25 MG/ML eCW1 ([facility]) Firvanq 25 MG/ML Firvanq 25 MG/ML 03/23/2021 12:00:00 AM EDT 5.0 {ml} active Firvanq 25 MG/ML eCW1 ([facility]) Firvanq 25 MG/ML Firvanq 25 MG/ML 03/23/2021 12:00:00 AM EDT 5.0 {ml} suspended Firvanq 25 MG/ML eCW1 ([facility]) Firvanq 25 MG/ML Firvanq 25 MG/ML 03/23/2021 12:00:00 AM EDT 5.0 {ml} suspended Firvanq 25 MG/ML eCW1 ([facility]) Firvanq 25 MG/ML Firvanq 25 MG/ML 03/23/2021 12:00:00 AM EDT 5.0 {ml} suspended Firvanq 25 MG/ML eCW1 ([facility]) Firvanq 25 MG/ML Firvanq 25 MG/ML 03/23/2021 12:00:00 AM EDT 5.0 {ml} active Firvanq 25 MG/ML eCW1 ([facility]) Firvanq 25 MG/ML Firvanq 25 MG/ML 03/23/2021 12:00:00 AM EDT 5.0 {ml} suspended Firvanq 25 MG/ML eCW1 ([facility]) Firvanq 25 MG/ML Firvanq 25 MG/ML 03/23/2021 12:00:00 AM EDT 5.0 {ml} active Firvanq 25 MG/ML eCW1 ([facility]) Firvanq 25 MG/ML Firvanq 25 MG/ML 03/23/2021 12:00:00 AM EDT 5.0 {ml} active Firvanq 25 MG/ML eCW1 ([facility]) Omeprazole 40 MG Delayed Release Oral Capsule Omeprazole 40 MG 03/08/2021 12:00:00 AM EDT suspended Omepr azole 40 MG eCW1 ([facility]) Omeprazole 40 MG Delayed Release Oral Capsule Omeprazole 40 MG 03/08/2021 12:00:00 AM EDT suspended Omepr azole 40 MG eCW1 ([facility]) Omeprazole 40 MG Delayed Release Oral Capsule Omeprazole 40 MG 03/08/2021 12:00:00 AM EDT suspended Omepr azole 40 MG eCW1 ([facility]) Omeprazole 40 MG Delayed Release Oral Capsule Omeprazole 40 MG 03/08/2021 12:00:00 AM EDT active Omeprazo le 40 MG eCW1 ([facility]) Omeprazole 40 MG Delayed Release Oral Capsule Omeprazole 40 MG 03/08/2021 12:00:00 AM EDT suspended Omepr azole 40 MG eCW1 ([facility]) Omeprazole 40 MG Delayed Release Oral Capsule Omeprazole 40 MG 03/08/2021 12:00:00 AM EDT suspended Omepr azole 40 MG eCW1 ([facility]) Omeprazole 40 MG Delayed Release Oral Capsule Omeprazole 40 MG 03/08/2021 12:00:00 AM EDT suspended Omepr azole 40 MG eCW1 ([facility]) Omeprazole 40 MG Delayed Release Oral Capsule Omeprazole 40 MG 03/08/2021 12:00:00 AM EDT suspended Omepr azole 40 MG eCW1 ([facility]) Omeprazole 40 MG Delayed Release Oral Capsule Omeprazole 40 MG 03/08/2021 12:00:00 AM EDT suspended Omepr azole 40 MG eCW1 ([facility]) Omeprazole 40 MG Delayed Release Oral Capsule Omeprazole 40 MG 03/08/2021 12:00:00 AM EDT suspended Omepr azole 40 MG eCW1 ([facility]) Omeprazole 40 MG Delayed Release Oral Capsule Omeprazole 40 MG 03/08/2021 12:00:00 AM EDT suspended Omepr azole 40 MG eCW1 ([facility]) Omeprazole 40 MG Delayed Release Oral Capsule Omeprazole 40 MG 03/08/2021 12:00:00 AM EDT suspended Omepr azole 40 MG eCW1 ([facility]) Omeprazole 40 MG Delayed Release Oral Capsule Omeprazole 40 MG 03/08/2021 12:00:00 AM EDT suspended Omepr azole 40 MG eCW1 ([facility]) Omeprazole 40 MG Delayed Release Oral Capsule Omeprazole 40 MG 03/08/2021 12:00:00 AM EDT suspended Omepr azole 40 MG eCW1 ([facility]) Omeprazole 40 MG Delayed Release Oral Capsule Omeprazole 40 MG 03/08/2021 12:00:00 AM EDT suspended Omepr azole 40 MG eCW1 ([facility]) Omeprazole 40 MG Delayed Release Oral Capsule Omeprazole 40 MG 03/08/2021 12:00:00 AM EDT suspended Omepr azole 40 MG eCW1 ([facility]) Omeprazole 40 MG Delayed Release Oral Capsule Omeprazole 40 MG 03/08/2021 12:00:00 AM EDT suspended Omepr azole 40 MG eCW1 ([facility]) Omeprazole 40 MG Delayed Release Oral Capsule Omeprazole 40 MG 03/08/2021 12:00:00 AM EDT suspended Omepr azole 40 MG eCW1 ([facility]) Omeprazole 40 MG Delayed Release Oral Capsule Omeprazole 40 MG 03/08/2021 12:00:00 AM EDT suspended Omepr azole 40 MG eCW1 ([facility]) Ergocalciferol 16707 UNT Oral Capsule [Drisdol] Drisdo l 1.25 MG (45697 UT) Drisdol 1.25 MG (45721 UT) 12/26/2020 12:00:00 AM EDT 1.0 {capsule} suspended Drisdol 1.25 MG (80201 UT) eCW1 ([facility]) Ergocalciferol 10192 UNT Oral Capsule [Drisdol] Drisdo l 1.25 MG (23871 UT) Drisdol 1.25 MG (02381 UT) 12/26/2020 12:00:00 AM EDT 1.0 {capsule} suspended Drisdol 1.25 MG (76062 UT) [facility] ([facility]) Ergocalciferol 20410 UNT Oral Capsule [Drisdol] Drisdo l 1.25 MG (47692 UT) Drisdol 1.25 MG (62754 UT) 12/26/2020 12:00:00 AM EDT 1.0 {capsule} suspended Drisdol 1.25 MG (55761 UT) [facility] ([facility]) Ergocalciferol 89994 UNT Oral Capsule [Drisdol] Drisdo l 1.25 MG (29553 UT) Drisdol 1.25 MG (78803 UT) 12/26/2020 12:00:00 AM EDT 1.0 {capsule} suspended Drisdol 1.25 MG (50018 UT) [facility] ([facility]) Ergocalciferol 57408 UNT Oral Capsule [Drisdol] Drisdo l 1.25 MG (37159 UT) Drisdol 1.25 MG (56279 UT) 12/26/2020 12:00:00 AM EDT 1.0 {capsule} suspended Drisdol 1.25 MG (69020 UT) [facility] ([facility]) Ergocalciferol 36971 UNT Oral Capsule [Drisdol] Drisdo l 1.25 MG (54727 UT) Drisdol 1.25 MG (20094 UT) 12/26/2020 12:00:00 AM EDT 1.0 {capsule} suspended Drisdol 1.25 MG (32972 UT) eC ([facility]) Ergocalciferol 70039 UNT Oral Capsule [Drisdol] Drisdo l 1.25 MG (71996 UT) Drisdol 1.25 MG (98077 UT) 12/26/2020 12:00:00 AM EDT 1.0 {capsule} active Drisdol 1.25 MG (60329 UT) [facility] ([facility]) Ergocalciferol 12307 UNT Oral Capsule [Drisdol] Drisdo l 1.25 MG (98314 UT) Drisdol 1.25 MG (22705 UT) 12/26/2020 12:00:00 AM EDT 1.0 {capsule} suspended Drisdol 1.25 MG (54104 UT) [facility] ([facility]) Ergocalciferol 02629 UNT Oral Capsule [Drisdol] Drisdo l 1.25 MG (39498 UT) Drisdol 1.25 MG (65843 UT) 12/26/2020 12:00:00 AM EDT 1.0 {capsule} active [facility] ([facility]) Ergocalciferol 91581 UNT Oral Capsule [Drisdol] Drisdo l 1.25 MG (75584 UT) Drisdol 1.25 MG (75618 UT) 12/26/2020 12:00:00 AM EDT 1.0 {capsule} suspended Drisdol 1.25 MG (40198 UT) [facility] ([facility]) Ergocalciferol 31923 UNT Oral Capsule [Drisdol] Drisdo l 1.25 MG (30195 UT) Drisdol 1.25 MG (16639 UT) 12/26/2020 12:00:00 AM EDT 1.0 {capsule} active Drisdol 1.25 MG (59968 UT) [facility] ([facility]) Ergocalciferol 81279 UNT Oral Capsule [Drisdol] Drisdo l 1.25 MG (65361 UT) Drisdol 1.25 MG (42237 UT) 12/26/2020 12:00:00 AM EDT 1.0 {capsule} suspended Drisdol 1.25 MG (74179 UT) [facility] ([facility]) Ergocalciferol 84620 UNT Oral Capsule [Drisdol] Drisdo l 1.25 MG (32621 UT) Drisdol 1.25 MG (42794 UT) 12/26/2020 12:00:00 AM EDT 1.0 {capsule} suspended Drisdol 1.25 MG (67709 UT) [facility] ([facility]) Ergocalciferol 55406 UNT Oral Capsule [Drisdol] Drisdo l 1.25 MG (42385 UT) Drisdol 1.25 MG (01324 UT) 12/26/2020 12:00:00 AM EDT 1.0 {capsule} suspended Drisdol 1.25 MG (66411 UT) [facility] ([facility]) Ergocalciferol 61481 UNT Oral Capsule [Drisdol] Drisdo l 1.25 MG (25495 UT) Drisdol 1.25 MG (85956 UT) 12/26/2020 12:00:00 AM EDT 1.0 {capsule} suspended Drisdol 1.25 MG (53635 UT) [facility] ([facility]) Ergocalciferol 91886 UNT Oral Capsule [Drisdol] Drisdo l 1.25 MG (87271 UT) Drisdol 1.25 MG (31335 UT) 12/26/2020 12:00:00 AM EDT 1.0 {capsule} suspended Drisdol 1.25 MG (43747 UT) [facility] ([facility]) Ergocalciferol 62796 UNT Oral Capsule [Drisdol] Drisdo l 1.25 MG (27485 UT) Drisdol 1.25 MG (35725 UT) 12/26/2020 12:00:00 AM EDT 1.0 {capsule} suspended Drisdol 1.25 MG (54170 UT) [facility] ([facility]) Ergocalciferol 90770 UNT Oral Capsule [Drisdol] Drisdo l 1.25 MG (96053 UT) Drisdol 1.25 MG (95428 UT) 12/26/2020 12:00:00 AM EDT 1.0 {capsule} active Drisdol 1.25 MG (72825 UT) [facility] ([facility]) Ergocalciferol 64215 UNT Oral Capsule [Drisdol] Drisdo l 1.25 MG (13075 UT) Drisdol 1.25 MG (85774 UT) 12/26/2020 12:00:00 AM EDT 1.0 {capsule} suspended Drisdol 1.25 MG (60553 UT) [facility] ([facility]) Ergocalciferol 03816 UNT Oral Capsule [Drisdol] Drisdo l 1.25 MG (42234 UT) Drisdol 1.25 MG (60617 UT) 12/26/2020 12:00:00 AM EDT 1.0 {capsule} suspended Drisdol 1.25 MG (28442 UT) eCW1 ([facility]) Ergocalciferol 17857 UNT Oral Capsule [Drisdol] Drisdo l 1.25 MG (13997 UT) Drisdol 1.25 MG (23355 UT) 12/26/2020 12:00:00 AM EDT 1.0 {capsule} suspended Drisdol 1.25 MG (98023 UT) eC ([facility]) Ergocalciferol 01043 UNT Oral Capsule [Drisdol] Drisdo l 1.25 MG (78423 UT) Drisdol 1.25 MG (28976 UT) 12/26/2020 12:00:00 AM EDT 1.0 {capsule} active Drisdol 1.25 MG (89491 UT) eC ([facility]) Ergocalciferol 21471 UNT Oral Capsule [Drisdol] Drisdo l 1.25 MG (53155 UT) Drisdol 1.25 MG (14759 UT) 12/26/2020 12:00:00 AM EDT 1.0 {capsule} active Drisdol 1.25 MG (12149 UT) eC ([facility]) Ergocalciferol 02181 UNT Oral Capsule [Drisdol] Drisdo l 1.25 MG (94391 UT) Drisdol 1.25 MG (11689 UT) 12/26/2020 12:00:00 AM EDT 1.0 {capsule} suspended Drisdol 1.25 MG (46653 UT) [facility] ([facility]) Divalproex Sodium 500 MG Delayed Release Oral Tablet Divalpr oex Sodium 06/28/2020 12:00:00 AM EST ORAL active MEDENT ([facility]) duloxetine 60 MG Delayed Release Oral Ca psule DULoxetine HCl 60 MG Oral Capsule Delayed Release Particles (CYMBALTA) DULoxetine HCl 60 MG Oral Capsule Delaye d Release Particles (CYMBALTA) 06/26/2020 12:00:00 AM EST 60 mg Oral active Take 60 mg by mouth daily 60mg in AM and 10 mg in [facility] Ondansetron 4 MG Disintegrating Oral Tablet Ondansetron 05/19/2020 12:00:00 AM EDT active MEDENT ([facility]) Alprazolam 0.5 MG Oral Tablet Alprazolam 05/19/2020 12:00:00 AM EDT ORAL active MEDENT ([facility]) Divalproex Sodium 250 MG Delayed Release Oral Tablet Divalpr oex Sodium 01/21/2020 12:00:00 AM EDT ORAL completed MEDENT ([facility] ) Insurance Providers Payer name Policy type / Coverage type Policy ID Covered constitution party ID Covered constitution party's relationship to [place] Policy [place] Plan Information Medicaid Dental S [id number] [facility] COMMUNITY PLAN [facility] [id number] SP [id number] [facility] I [id number] Self [id number] [facility] I [id number] Self [id number] [facility] COMMUNITY PLAN XIX [id number] 18 [id number] [facility] [id number] ANSI-Medicaid [id number] ANSI-Medicaid [id number] ANSI-Medicaid [id number] ANSI-Medicaid [id number] ANSI-Medicaid [id number] [facility] [id number] Self [id number] [facility] Commercial [id number] Self [id number] ANSI-Medicaid [id number] ANSI-Medicaid [id number] ANSI-Medicaid [id number] ANSI-Medicaid [id number] ANSI-Medicaid [id number] ANSI-Medicaid [id number] ANSI-Medicaid [id number] ANSI-Medicaid [id number] ANSI-Medicaid [id number] ANSI-Medicaid [id number] ANSI-Medicaid [id number] ANSI-Medicaid [id number] ANSI-Medicaid [id number] ANSI-Medicaid [id number] ANSI-Medicaid [id number] ANSI-Medicaid [id number] MEDICAID [id number] SP [id number] ANSI-Medicaid [id number] ANSI-Medicaid [id number] ANSI-Medicaid [id number] ANSI-Commercial [id number] ANSI-Medicaid [id number] [employer] COMMUNITY PLAN [facility] [id number] SP [id number] [facility] [id number] AU2 [id number] SELF PAY ONLY [id number] SP [id number] [facility] O [id number] S [id number] SELF PAY ONLY [id number] SP [id number] [facility] Health Maintenance Organization (O) [id number] Self [id number] [facility] Health Maintenance Organization (O) [id number] Self [id number] [facility] Health Maintenance Organization (O) [id number] Self [id number] [facility] Health Maintenance Organization (O) [id number] Self D Managed Care [facility] P [id number] S [id number] [employer] COMMUNITY PLAN [facility] [id number] SP [id number] [employer]AN [id number] SP [id number] HMO BLUE [id number] SP [id number] HMO BLUE P [id number] S [id number] [employer] COMMUNITY PLAN [facility] [id number] SP [id number] [facility]) O [id number] S [id number] [facility] [id number] SP [id number] Self Pay P UNAVAILABLE S UNAVAILA BLE Problems, Conditions, and Diagnoses Code Display Name Description Problem Type Effective Dates Data Source(s) follow up follow up Diagnosis 08/03/2020 08:05:57 AM [facility] A04.72 [id number] Clostridium difficile colitis Problem 04/12/2021 12:00:00 AM EDT eCW1 ([facility]) G47.33 [id number] DWAYNE (obstructive sleep apnea) Problem 12/07/2020 12:00:00 AM EDT eCW1 ([facility]) E66.01 [id number] Morbid obesity Problem 12/07/2020 12:00:00 A M EDT eCW1 ([facility]) G43.120 [id number] Migraine with aura a nd without status migrainosus, not intractable Problem 06/02/2020 12:00:00 AM EDT eCW1 ([facility]) Surgeries/Procedures Procedure Description Date Indications Data Source(s) MRI Brain W/O Contrast, Followed By Contrast 0 12:00:00 AM EDT MEDENT ([facility] MRI Brain W/O Contrast, Followed By Contrast 0 12:00:00 AM EDT MEDENT ([facility] ) Results ID Date Data Source [id number] 04/04/2021 01:13:00 PM EDT [facility] Name Value Range Interpretation Code Description Data Deborah rce(s) Supporting Document(s) SARS coronavirus 2 RNA [Presence] in Res piratory specimen by JAMES with probe detection NEGATIVE [facility] This lab was ordered by [facility] a nd reported by [facility]. ID Date Data Source [id number] 03/21/2021 02:05:00 PM EDT [facility] Name Value Range Interpretation Code Description Data Deborah rce(s) Supporting Document(s) SARS-CoV-2 (COVID 19) NEGATIVE - SARS-CoV-2 (COVID19) [facility] This lab was ordered by [facility] a nd reported by [facility]. ID Date Data Source LIPASE 03/08/2021 12:00:00 AM EDT eCW1 ([facility]) Name Value Range Interpretation Code Description Data Deborah rce(s) Supporting Document(s) [phone] LIPASE eCW1 ([facility]) ID Date Data Source Comprehensive Metabolic Profile (CMP) 03/08/2021 12:00:00 AM EDT eCW1 ([facility]) Name Value Range Interpretation Code Description Data Deborah rce(s) Supporting Document(s) 85 70-100 GLUCOSE, FASTING eCW1 ([facility]) 8 7-18 BLOOD UREA NITROGEN eCW1 ([facility]) 0.88 0.55-1.30 CREATININE FOR GFR eCW1 ([facility]) 4.0 3.5-5.1 POTASSIUM SERUM eCW1 ([facility]) 141 136-145 SODIUM LEVEL eCW1 ([facility]) 110 98-107 CHLORIDE LEVEL eCW1 ([facility]) > 60.0 >60 GLOMERULAR FILTRATION RATE eCW 1 ([facility]) 26 21-32 CARBON DIOXIDE LEVEL eCW1 ([facility]) 24 7-37 AST/SGOT eCW1 ([facility]) 8.9 8.5-10.1 CALCIUM LEVEL eCW1 ([facility]) 67 12-78 ALT/SGPT eCW1 ([facility]) 89 45-117 ALKALINE PHOSPHATASE eCW1 ([facility]) 7.1 6.4-8.2 TOTAL PROTEIN eCW1 ([facility]) 0.4 0.2-1.0 BILIRUBIN,TOTAL eCW1 ([facility]) 4.0 3.2-5.2 ALBUMIN eCW1 ([facility]) 1.3 1.2-2.2 ALBUMIN/GLOBULIN RATIO eCW1 ([facility]) ID Date Data Source CBC with Differential 03/08/2021 12:00:00 AM EDT eCW1 ([facility]) Name Value Range Interpretation Code Description Data Deborah rce(s) Supporting Document(s) 4.84 4.00-5.40 RED BLOOD COUNT eCW1 ([facility]) 10.2 4.0-10.0 WHITE BLOOD COUNT eCW1 (On license of [facility]) 92.1 80.0-96.0 MEAN CORPUSCULAR VOLUME e CW1 ([facility]) 44.6 36.0-47.0 HEMATOCRIT eCW1 ([facility]) 14.6 12.0-15.5 HEMOGLOBIN eCW1 ([facility]) 32.7 32.0-36.5 MEAN CORPUSCULAR HGB CONC eCW1 ([facility]) 13.7 11.5-14.5 RED CELL DISTRIBUTION WID TH eCW1 ([facility]) 30.2 27.0-33.0 MEAN CORPUSCULAR HEMOGLOB IN eCW1 ([facility]) 335 150-450 PLATELET COUNT, AUTOMATED eCW1 ([facility]) 27.7 24.0-44.0 LYMPH % eCW1 ([facility]) 63.3 36.0-66.0 NEUTROPHILS % eCW1 ([facility]) 6.6 2.0-8.0 MONO % eCW1 ([facility]) 1.7 0.0-3.0 EOS % eCW1 ([facility]) 0.4 0.0-1.0 BASO % eCW1 ([facility]) 0.2 0.0-0.5 EOS # eCW1 ([facility]) 6.5 1.5-8.5 NEUTROPHILS # eCW1 ([facility]) 0.7 0.0-0.8 MONO # eCW1 ([facility]) 2.8 1.5-5.0 LYMPH # eCW1 ([facility]) 0.0 0.0-0.2 BASO # eCW1 ([facility]) ID Date Data Source 03/08/2021 12:00:00 AM EDT eCW1 ([facility]) Name Value Range Interpretation Code Description Data Deborah rce(s) Supporting Document(s) 42 25-115 AMYLASE eCW1 ([facility]) ID Date Data Source [id number] 08/03/2020 05:25:41 PM EST [facility] Name Value Range Interpretation Code Description Data Deborah rce(s) Supporting Document(s) Progress Note [facility] QHGWUd5yDsZGDfSg99/ZRNjlWWGou5VyTIjbGOm4ANnxWYWgT2TzGGI6hL1oNUQ5PSrISvYfOoZjCzO5 lbm [file] QgXbBwUeQIB6UcUqCfBaPM7DYh8RXhR1HPY1pMTvWg5UOggqIGCTPiPiCU4JZLh= ID Date Data Source [id number] 06/28/2020 03:35:29 PM [facility] Name Value Range Interpretation Code Description Data Deborah rce(s) Supporting Document(s) Progress Note [facility] GHFXVn8gOsGHPbRa85/GOKhyFOGlo9RwDDtpPSa3VUoiGWZnO1HfMTV4kL4oDNI7ETkIHlOdTxZwFLQq lbm [file] DQogICAgICAgICAgICAgICAgICAgICAgICAgICAgICAgICAgICAgICAgICAgICAgICAgICAgICAgICAg ICAgICAgICAgICAgICAgICAgICAgICAgICAgICAgICAgICAgICAgICAgDQogICAgICAgICAgICAgICAg ICAgICAgICAgICAgICAgICAgICAgICAgICAgICAgIC AgICAgICAgICAgICAgICAgICAgICAgICAgICAgICAgICAgICAgICAgICAgICAgICAgICAgDQogICAgIC AgICAgICAgICAgICAgICAgICAgICAgICAgICAgICAgICAgICAgICAgICAgICAgICAgICAgICAgICAgIC AgICAgICAgICAgICAgICAgICAgICAgICAgICAgICAg ICAgDQogICAgICAgICAgICAgICAgICAgICAgICAgICAgICAgICAgICAgICAgICAgICAgICAgICAgICAg ICAgICAgICAgICAgICAgICAgICAgICAgICAgICAgICAgICAgICAgICAgICAgDQogICAgICAgICAgICAg ICAgICAgICAgICAgICAgICAgICAgICAgICAgICAgIC AgICAgICAgICAgICAgICAgICAgICAgICAgICAgICAgICAgICAgICAgICAgICAgICAgICAgICAgDQogIC AgICAgICAgICAgICAgICAgICAgICAgICAgICAgICAgICAgICAgICAgICAgICAgICAgICAgICAgICAgIC AgICAgICAgICAgICAgICAgICAgICAgICAgICAgICAg ICAgICAgDQogICAgICAgICAgICAgICAgICAgICAgICAgICAgICAgICAgICAgICAgICAgICAgICAgICAg ICAgICAgICAgICAgICAgICAgICAgICAgICAgICAgICAgICAgICAgICAgICAgICAgDQogICAgICAgICAg ICAgICAgICAgICAgICAgICAgICAgICAgICAgICAgIC AgICAgICAgICAgICAgICAgICAgICAgICAgICAgICAgICAgICAgICAgICAgICAgICAgICAgICAgICAgDQ ogICAgICAgICAgICAgICAgICAgICAgICAgICAgICAgICAgICAgICAgICAgICAgICAgICAgICAgICAgIC AgICAgICAgICAgICAgICAgICAgICAgICAgICAgICAg ICAgICAgICAgDQogICAgICAgICAgICAgICAgICAgICAgICAgICAgICAgICAgICAgICAgICAgICAgICAg YPFiGINbLZXfNGPlCOIfJJLdVAObEFDqOMYaRKLzCVXeROOhPKRbIMXvMTHjENRfJDPkIJj0Y5wnADMw RWDhOM7cYGc2Qa9+VHkIOqRcIDU4jxWxvG1FZV6ft7 ZbUXpgIAEiz9BkCTi7WP8YKNDkSBrrZK7WZBimgg5GCLUbXVBzlHIUd0ziIzZmKLC3OPWiBaqcBI6PME GzW8wuvnYgKYKqRONLFLqzLNBIUXbjNNUQOSYrOGZcDkDvRGceRM4Qj9UsgWR5NYn+Iq3PTM5di4VgNK lkOXHhUC9zzi2ZUVjDOaXhO8SuseA8BXW8MFDvAr6I MMMgRDEuvICxALVlJQUIIaWpC4VwoH87AEHRMn1+BOdfdrIuFyhCQxT3KHLir3OyGXr7PX7SMGRkQJf3 yQHhBWVvQ3Mcz6OgUp43QWJaPjpmBnSqZiYtgSFWNFQdhSZnSRFMVVYmpQWiLK4cZV8sAKXaMFQlOjP5 LQQZES5IWMBoTMRrfIQvVOVrAAUTOC0HQUdgPRB8PY YhbfCxeRXmAMtnHS7JAIUlygQnUrlmOUQLKUs+Ac0KDD9wk7JrORkuUZOnJY3mjb2WHGeVJwZpU9P2vR QgO9N8WOhoJg6WORHwQLOiZaWqQRTRDClbUN1JJZ0xirX0YM4HvSBnMBHwUVTnqYVzVZu8Y92yfZLwHU olHM6MJXM+Rachell+Zg7BKJHkYBWcWPZrFxMcDJPDRbHt Q4SlU3BYx5EpI5KzWX36bEkkgpQoGVetEZ3XKL0aUVLkEIEHTS8RxEEhlL7pwwZfXIUfUIJQQfXdB64g vINvRUMpOJU1OAFfWv8SGPWvY3OgayQfeIqbbcHvBBTkPUSJAF6BEOylohBhjUCnqPzfLB42dRhlZC8E Wn7WDhWdWN4cgr0YkDGbPg3BZUGcCF7NEVFvRKYqBS PbIQO0DVPqBqXkAIccCPPxQSVnMNL6XTAxZJXkMZ9NIrCuQIIeCozuAVMgJLOzOEValg7BCTWrESPdDY y2FGPmVIDfWBBgURcwGSHhLBScUSY5AVIyRUWqOU8AFiUuGJVoMZElUeNdNCKePORwjy4XQNOxQXAkKp DnITKsICBxWRLzYYdtEZSgCWU3PCZ0BEFtCUPbBE2X VqDnUYOyHNC7GKBhSXLkCUNtlg2OERFfXCCjCXu0QPJiQVKgUMEaAQxeATWmWGF9PJPaDFDtNAGzTO0G MvNmKADxRGA0JRikUBNdYBDmiz5ZCHLzKXQrFTdsVOLxMFUpOKZnBFuoHGAoIRZlYir6ABZqJBAsXS3E DeAyCLSvGDB8MHIgZXPnSZUxoz6KRPQdMBJyHdI4GN FcEJRfUKMwBXvjIAMfAEYhLHZkWCXeXTEjOA0PHjAzSZFrPNWlBmUkCGOaZXPiac4MORMtCQMkMtHaGs WpXNGpSIQmKJlqFBGhUWK7DARfRVOoKANxED0SZfWcAHQvPnPeJlnkWRBiPSPdsb6ERIMyCYKbOMN7Aa SnYXGaQDDwNQclDQNdSTD5CxG8KHTfQLGwYX4JDsAd NASuPmK0OpJkGLZvSJUyrt6YNBZfKQYvQbkkBuBxRUZxKWJpZEgxKKPmCCE6GVN3OWRvJTJxGZ8SImJd KCNmMhmxUDYrQYOoQZBdsi6UKUDfLEFiCkKyHDThOWRiKLOmWNgjIAStWUQ2IBG3QLRuSBCqGC9QLlCi TYIyFcdsNkqkLQEpLIOthj1IPMXhVIUaFHW3JAVtPB BrZZKsOVe1mdKegXGfHQn9RY9ZC2TtvaOeVmSTAz3Hj776NLToYDJqBc7GF3tzYh3oEINlLVOAYy3GJT r5HOC3VlZ5SKKsTrSpSsSaPHGiIXGyRtG6PdS6YtD4Hjw+HBe1HQKtYzClIMBuQRFwCpC9InW0VuFaOR BnYCnxOevgUa3bQRXBQt9+VLadxPAnhBcdYUZGVbR8YFFdYEghKFJNMj5K ID Date Data Source HEPATITIS PROFILE ACUTE 06/06/2020 05:39:05 AM EDT eCW1 ([facility]) Name Value Range Interpretation Code Description Data Deborah rce(s) Supporting Document(s) 0.1 eCW1 ([facility]) NEGATIVE eCW1 ([facility]) NEGATIVE eCW1 ([facility]) NEGATIVE eCW1 ([facility]) ID Date Data Source [id number] 06/06/2020 05:38:10 AM EDT eCW1 ([facility]) Name Value Range Interpretation Code Description Data Deborah rce(s) Supporting Document(s) eCW1 ([facility]) ID Date Data Source SYPHILIS ANTIBODY (RPR SCREEN) 06/06/2020 05:38:01 AM EDT eC W1 ([facility]) Name Value Range Interpretation Code Description Data Deborah rce(s) Supporting Document(s) NONREACTIVE eCW1 ([facility]) ID Date Data Source [id number] 05/23/2020 11:50:[address] [facility] Name Value Range Interpretation Code Description Data Deborah rce(s) Supporting Document(s) Progress Note [facility] ODIWGj6kZtFXRiLl38/GFEigNDFsd7BaTJxsLIj5DCivJHRmN2JgZVV2rS6lNUK3NBkPPuVfMkElZAE6 lbm [file] QYacaym4CUQ2NsGfeJdB3xtqgRjQIMKgON4K+O/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 [file] 8HOTOFX8DZDt== Procedure Social History Code Duration Value Status Description Data Source(s ) Smoking 04/13/2021 12:00:00 AM EDT Never Smoker completed Never S moker eCW1 ([facility]) Smoking 04/13/2021 12:00:00 AM EDT Never Smoker completed Never S moker eCW1 ([facility]) Smoking 04/13/2021 12:00:00 AM EDT Never Smoker completed Never S moker eCW1 ([facility]) Smoking 04/13/2021 12:00:00 AM EDT Never Smoker completed Never S moker eCW1 ([facility]) Smoking 04/13/2021 12:00:00 AM EDT Never Smoker completed Never S moker eCW1 ([facility]) Smoking 04/13/2021 12:00:00 AM EDT Never Smoker completed Never S moker eCW1 ([facility]) Smoking 04/13/2021 12:00:00 AM EDT Never Smoker completed Never S moker eCW1 ([facility]) Smoking 03/30/2021 12:00:00 AM EDT Never Smoker completed Never S moker eCW1 ([facility]) Smoking 03/30/2021 12:00:00 AM EDT Never Smoker completed Never S moker eCW1 ([facility]) Smoking 03/30/2021 12:00:00 AM EDT Never Smoker completed Never S moker eCW1 ([facility]) Smoking 03/30/2021 12:00:00 AM EDT Never Smoker completed Never S moker eCW1 ([facility]) Smoking 03/30/2021 12:00:00 AM EDT Never Smoker completed Never S moker eCW1 ([facility]) Smoking 03/30/2021 12:00:00 AM EDT Never Smoker completed Never S moker eCW1 ([facility]) Smoking 03/30/2021 12:00:00 AM EDT Never Smoker completed Never S moker eCW1 ([facility]) Smoking 03/08/2021 12:00:00 AM EDT Never Smoker completed Never S moker eCW1 ([facility]) Smoking 03/08/2021 12:00:00 AM EDT Never Smoker completed Never S moker eCW1 ([facility]) Smoking 03/08/2021 12:00:00 AM EDT Never Smoker completed Never S moker eCW1 ([facility]) Smoking 03/08/2021 12:00:00 AM EDT Never Smoker completed Never S moker eCW1 ([facility]) Smoking 03/08/2021 12:00:00 AM EDT Never Smoker completed Never S moker eCW1 ([facility]) Smoking 01/24/2021 12:00:00 AM EDT Never Smoker completed Never S moker eCW1 ([facility]) Smoking 01/24/2021 12:00:00 AM EDT Never Smoker completed Never S moker eCW1 ([facility]) Smoking 01/24/2021 12:00:00 AM EDT Never Smoker completed Never S moker eCW1 ([facility]) Smoking 12/08/2020 12:00:00 AM EDT Never Smoker completed Never S moker eCW1 ([facility]) Smoking 12/08/2020 12:00:00 AM EDT Never Smoker completed Never S moker eCW1 ([facility]) Smoking 12/08/2020 12:00:00 AM EDT Never Smoker completed Never S moker eCW1 ([facility]) Smoking 12/08/2020 12:00:00 AM EDT Never Smoker completed Never S moker eCW1 ([facility]) Alcohol intake 08/02/2020 12:00:00 AM EST Ex-drinker (finding) comp leted Ex- drinker (finding) [facility] Tobacco use and exposure 08/02/2020 12:00:00 AM EST Never used co mpleted Never used [facility] Smoking 08/02/2020 12:00:00 AM EST Never smoker completed Never s [facility] Alcohol intake 06/28/2020 12:00:00 AM EST Ex-drinker (finding) comp leted Ex- drinker (finding) [facility] Smoking 06/02/2020 12:00:00 AM EDT Never Smoker completed Never S moker eCW1 ([facility]) Smoking 06/02/2020 12:00:00 AM EDT Never Smoker completed Never S moker eCW1 ([facility]) Smoking 06/02/2020 12:00:00 AM EDT Never Smoker completed Never S moker eCW1 ([facility]) Smoking 06/02/2020 12:00:00 AM EDT Never Smoker completed Never S moker eCW1 ([facility]) Smoking 06/02/2020 12:00:00 AM EDT Never Smoker completed Never S moker eCW1 ([facility]) Smoking 06/02/2020 12:00:00 AM EDT Never Smoker completed Never S moker eCW1 ([facility]) Smoking 06/02/2020 12:00:00 AM EDT Never Smoker completed Never S moker eCW1 ([facility]) Smoking 06/02/2020 12:00:00 AM EDT Never Smoker completed Never S moker eCW1 ([facility]) Smoking 06/02/2020 12:00:00 AM EDT Never Smoker completed Never S moker eCW1 ([facility]) Smoking 06/02/2020 12:00:00 AM EDT Never Smoker completed Never S moker eCW1 ([facility]) Smoking 06/02/2020 12:00:00 AM EDT Never Smoker completed Never S moker eCW1 ([facility]) Smoking 06/02/2020 12:00:00 AM EDT Never Smoker completed Never S moker eCW1 ([facility]) Smoking 06/02/2020 12:00:00 AM EDT Never Smoker completed Never S moker eCW1 ([facility]) Smoking 06/02/2020 12:00:00 AM EDT Never Smoker completed Never S moker eCW1 ([facility]) Vital Signs ID Date Data Source UNK Name Value Range Interpretation Code Description Data Source(s) Body weight 307 [lb_av] 307 [lb_av] eCW1 ([facility]) Body height [in_i] eCW1 ([facility]) Body mass index (BMI) [Ratio] 49.55 kg/m2 49.55 kg/m2 eCW1 ([facility]) Respiratory rate 18 /min 18 /min eCW1 ([facility]) Body temperature 98.1 [degF] 98.1 [degF] eCW1 ( [facility]) Systolic blood pressure 132 mm[Hg] 132 mm[Hg] e CW1 ([facility]) Diastolic blood pressure 80 mm[Hg] 80 mm[Hg] eCW1 ([facility]) Respiratory rate 18 /min 18 /min eCW1 ([facility]) Body weight 307.8 [lb_av] 307.8 [lb_av] [facility]CW[facility] Body height [in_i] eCW1 ([facility]) Body mass index (BMI) [Ratio] 49.67 kg/m2 49.67 kg/m2 eCW1 ([facility]) Heart rate 110 /min 110 /min eCW1 ([facility]) Body temperature 97.2 [degF] 97.2 [degF] eCW1 ( [facility]) Systolic blood pressure 120 mm[Hg] 120 mm[Hg] e CW1 ([facility]) Diastolic blood pressure 70 mm[Hg] 70 mm[Hg] eCW1 ([facility]) Body weight 317.2 [lb_av] 317.2 [lb_av] eCW1 [facility] Body height [in_i] eCW1 ([facility]) Body mass index (BMI) [Ratio] 51.19 kg/m2 51.19 kg/m2 eCW1 ([facility]) Heart rate 107 /min 107 /min eCW1 ([facility]) Respiratory rate 18 /min 18 /min eCW1 ([facility]) Body temperature 97.8 [degF] 97.8 [degF] eCW1 ( [facility]) Systolic blood pressure 130 mm[Hg] 130 mm[Hg] e CW1 ([facility]) Diastolic blood pressure 80 mm[Hg] 80 mm[Hg] eCW1 ([facility]) Body weight 321.4 [lb_av] 321.4 [lb_av] eCW1 ([facility] Body height [in_i] eCW1 ([facility]) Body mass index (BMI) [Ratio] 51.87 kg/m2 51.87 kg/m2 eCW1 ([facility]) Heart rate 90 /min 90 /min eCW1 ([facility]) Respiratory rate 18 /min 18 /min eCW1 ([facility]) Body temperature 98.1 [degF] 98.1 [degF] eCW1 ( [facility]) Systolic blood pressure 122 mm[Hg] 122 mm[Hg] e CW1 ([facility]) Diastolic blood pressure 84 mm[Hg] 84 mm[Hg] eCW1 ([facility]) Body weight 330.8 [lb_av] 330.8 [lb_av] eCW1 ([facility] Systolic blood pressure 120 mm[Hg] 120 mm[Hg] e CW1 ([facility]) Diastolic blood pressure 82 mm[Hg] 82 mm[Hg] eCW1 ([facility]) Body height [in_i] eCW1 ([facility]) Body mass index (BMI) [Ratio] 53.39 kg/m2 53.39 kg/m2 eCW1 ([facility]) Heart rate 82 /min 82 /min eCW1 ([facility]) Respiratory rate 18 /min 18 /min eCW1 ([facility]) Body temperature 97.6 [degF] 97.6 [degF] eCW1 ( [facility]) Body weight 338.6 [lb_av] 338.6 [lb_av] eCW1 ([facility] Body height [in_i] eCW1 ([facility]) Body mass index (BMI) [Ratio] 54.65 kg/m2 54.65 kg/m2 eCW1 ([facility]) Heart rate 117 /min 117 /min eCW1 ([facility]) Respiratory rate 18 /min 18 /min eCW1 ([facility]) Body temperature 97.5 [degF] 97.5 [degF] eCW1 ( [facility]) Systolic blood pressure 124 mm[Hg] 124 mm[Hg] e CW1 ([facility]) Diastolic blood pressure 80 mm[Hg] 80 mm[Hg] eCW1 ([facility]) Body weight 326 [lb_av] 326 [lb_av] eCW1 ([facility]) Body height [in_i] eCW1 ([facility]) Body mass index (BMI) [Ratio] 52.61 kg/m2 52.61 kg/m2 eCW1 ([facility]) Heart rate 123 /min 123 /min eCW1 ([facility]) Respiratory rate 18 /min 18 /min eCW1 ([facility]) Body temperature 98.1 [degF] 98.1 [degF] eCW1 ( [facility]) Systolic blood pressure 130 mm[Hg] 130 mm[Hg] e CW1 ([facility]) Diastolic blood pressure 86 mm[Hg] 86 mm[Hg] eCW1 ([facility]) ID Date Data Source [id number] 06/28/2020 03:35:29 PM [facility] Name Value Range Interpretation Code Description Data Source(s) WEIGHT RECORDED 329 lb 329 lb [facility] Body height Measured 66 in 66 in [facility] Patient Treatment Plan of Care Planned Activity Planned Date Details Description Data Source (s) Mupirocin 0.02 MG/MG Topical Ointment 04/13/2021 12:00:00 AM EDT eCW1 ([facility]) Mupirocin 0.02 MG/MG Topical Ointment 04/13/2021 12:00:00 AM EDT eCW1 ([facility]) Mupirocin 0.02 MG/MG Topical Ointment 04/13/2021 12:00:00 AM EDT eCW1 ([facility]) Mupirocin 0.02 MG/MG Topical Ointment 04/13/2021 12:00:00 AM EDT eCW1 ([facility]) Mupirocin 0.02 MG/MG Topical Ointment 04/13/2021 12:00:00 AM EDT eCW1 ([facility]) Mupirocin 0.02 MG/MG Topical Ointment 04/13/2021 12:00:00 AM EDT eCW1 ([facility]) Mupirocin 0.02 MG/MG Topical Ointment 04/13/2021 12:00:00 AM EDT eCW1 ([facility]) Firvanq 50 MG/ML 03/30/2021 12:00:00 AM EDT eCW1 ([facility]) Bacid - 03/30/2021 12:00:00 AM EDT e CW1 ([facility]) fidaxomicin 200 MG Oral Tablet [Dificid] 03/30/2021 12:00:00 AM EDT eCW1 ([facility]) Vancomycin 250 MG Oral Capsule 03/30/2021 12:00:00 AM EDT eCW1 ([facility]) Firvanq 50 MG/ML 03/30/2021 12:00:00 AM EDT eCW1 ([facility]) Bacid - 03/30/2021 12:00:00 AM EDT e CW1 ([facility]) fidaxomicin 200 MG Oral Tablet [Dificid] 03/30/2021 12:00:00 AM EDT eCW1 ([facility]) Vancomycin 250 MG Oral Capsule 03/30/2021 12:00:00 AM EDT eCW1 ([facility]) Firvanq 50 MG/ML 03/30/2021 12:00:00 AM EDT eCW1 ([facility]) Bacid - 03/30/2021 12:00:00 AM EDT e CW1 ([facility]) fidaxomicin 200 MG Oral Tablet [Dificid] 03/30/2021 12:00:00 AM EDT eCW1 ([facility]) Vancomycin 250 MG Oral Capsule 03/30/2021 12:00:00 AM EDT eCW1 ([facility]) Firvanq 50 MG/ML 03/30/2021 12:00:00 AM EDT eCW1 ([facility]) Bacid - 03/30/2021 12:00:00 AM EDT e CW1 ([facility]) fidaxomicin 200 MG Oral Tablet [Dificid] 03/30/2021 12:00:00 AM EDT eCW1 ([facility]) Vancomycin 250 MG Oral Capsule 03/30/2021 12:00:00 AM EDT eCW1 ([facility]) Firvanq 50 MG/ML 03/30/2021 12:00:00 AM EDT eCW1 ([facility]) Bacid - 03/30/2021 12:00:00 AM EDT e CW1 ([facility]) fidaxomicin 200 MG Oral Tablet [Dificid] 03/30/2021 12:00:00 AM EDT eCW1 ([facility]) Vancomycin 250 MG Oral Capsule 03/30/2021 12:00:00 AM EDT eCW1 ([facility]) Firvanq 50 MG/ML 03/30/2021 12:00:00 AM EDT eCW1 ([facility]) Bacid - 03/30/2021 12:00:00 AM EDT e CW1 ([facility]) fidaxomicin 200 MG Oral Tablet [Dificid] 03/30/2021 12:00:00 AM EDT eCW1 ([facility]) Vancomycin 250 MG Oral Capsule 03/30/2021 12:00:00 AM EDT eCW1 ([facility]) Firvanq 50 MG/ML 03/30/2021 12:00:00 AM EDT eCW1 ([facility]) Bacid - 03/30/2021 12:00:00 AM EDT e CW1 ([facility]) fidaxomicin 200 MG Oral Tablet [Dificid] 03/30/2021 12:00:00 AM EDT eCW1 ([facility]) Vancomycin 250 MG Oral Capsule 03/30/2021 12:00:00 AM EDT eCW1 ([facility]) Omeprazole 40 MG Delayed Release Oral Capsule 03/08/2021 12:00:00 A M EDT eCW1 ([facility]) Ergocalciferol [id number] UNT Oral Capsule [Drisdol] 12/26/2020 12:00:00 AM EDT eCW1 ([facility]) Ergocalciferol [id number] UNT Oral Capsule [Drisdol] 12/26/2020 12:00:00 AM EDT eCW1 ([facility]) duloxetine 60 MG Delayed Release Oral Capsule 06/26/2020 12:00:00 A M [facility]
== END 2021-07-09 05:26 | disposition left against medical advice (07) ==
LOC: M ED 02:42
DX: Z53.29 Procedure and treatment not carried out because of patient's decision for other reasons (principal)

== ENCOUNTER → 2021-07-09 | Outpatient (REF) | payer OTHER ==
[~2021-07-09] MED LIST changes: -BEZLOTOXUMAB IV ONE; +DOXY-443 PO; -DOXY1CAP62 PO; -NS IV ONE
[2021-07-09 14:35] LABS: RSV AMPLIFICATION NEGATIVE (NEGATIVE)
== END ==
LOC: M LAB REF 12:42
PROVIDERS: ATTEND Physician Assistant Medical
DX: R50.9 Fever, unspecified (principal)